=== PATIENT | female | born 1990 | race Caucasian/White ===

== ENCOUNTER 2016-08-11 05:39 | Emergency (ER) | payer OTHER, SELFPAY ==
[~2016-08-11] VITALS: Ht 165.1 cm; Wt 72.6 kg
[2016-08-11 05:48] VITALS: BP 137/72
[2016-08-11] MEDS ORDERED: CELE20TA PO (05:50)
[2016-08-11] MEDS ORDERED: LIDOCAINE W/EPINEPHRINE 1% 20ML VIAL SC ONE (06:15)
[2016-08-11] MEDS ORDERED: BACT800T5 PO (06:41)
[2016-08-11] MEDS ORDERED: NORCOTAB PO (06:43)
[2016-08-11] MEDS ORDERED: KEFL500C7 PO (06:43)
== END 2016-08-11 07:06 | disposition home or self-care (01) ==
LOC: M ED 06:54
DX: L05.01 Pilonidal cyst with abscess (principal); F33.9 Major depressive disorder, recurrent, unspecified; Z79.899 Other long term (current) drug therapy

== ENCOUNTER 2017-01-24 16:32 | Emergency (ER) | payer OTHER, SELFPAY ==
[~2017-01-24] VITALS: Ht 165.1 cm; Wt 60.9 kg
[~2017-01-24 16:32] MED LIST: BACT800T5 PO; CELE20TA PO; KEFL500C17 PO; NORCOTAB PO
--- NOTE | 2017-01-24 18:40 | REPUSA ---
Clinical history: Pain. Findings: Real-time transabdominal and transvaginal ultrasound images of the pelvis were obtained. An anteverted uterus is noted, measuring 7.4 x 3.7 x 4.1 cm. The uterus demonstrates normal echotexture and echogenicity. The endometrial stripe is within normal limits. IUD is in place. The right ovary m easures 3.4 x 1.8 x 2.3 cm. The left ovary measures 1.9 x 1.6 x 1.6 cm. No adnexal masses are seen. C olor Doppler flow is seen within both ovaries. There is no evidence of free fluid. The urinary bladde r measures 2.1 x 1.5 x 3.8 cm, and is unremarkable. Impression: Unremarkable ultrasound examination of the pelvis. IUD is within normal position.
[2017-01-24] MEDS ORDERED: MACR100C43 PO (18:51)
[2017-01-24 19:00] VITALS: BP 112/68
[2017-01-24] MEDS ORDERED: DIFL150T PO (19:12)
[2017-01-24] MEDS ORDERED: NITROFURANTOIN (MACROBID) 100 MG CAP PO ONE (19:15)
== END 2017-01-24 19:18 | disposition home or self-care (01) ==
LOC: M ED 16:32
DX: N92.1 Excessive and frequent menstruation with irregular cycle (principal); N39.0 Urinary tract infection, site not specified

== ENCOUNTER 2018-01-05 08:53 | Emergency (ER) | payer BC ==
[2018-01-05] MEDS ORDERED: ETHYL CHLORIDE TOP (10:45)
== END 2018-01-05 11:37 | disposition home or self-care (01) ==
LOC: M ED 08:53
DX: L05.91 Pilonidal cyst without abscess (principal)
CPT/HCPCS: 10060

== ENCOUNTER 2018-12-25 16:43 | Emergency (ER) | payer OTHER, SELFPAY ==
[~2018-12-25] VITALS: Ht 165.1 cm; Wt 86.9 kg
[~2018-12-25 16:43] MED LIST changes: +CITA40TA4 PO; +CLEO300C2 PO; +DIFL150T PO; +HYDR-3715 PO; +MACR100C43 PO; -NORCOTAB PO; +TRIA1OI TOP
[2018-12-25 19:20] VITALS: BP 121/62
== END 2018-12-25 19:21 | disposition home or self-care (01) ==
LOC: M ED 16:43
DX: M79.671 Pain in right foot (principal); R22.41 Localized swelling, mass and lump, right lower limb

== ENCOUNTER 2019-04-26 09:49 | Emergency (ER) | payer OTHER, SELFPAY ==
[~2019-04-26] VITALS: Ht 165.1 cm; Wt 82.0 kg
[2019-04-26 09:49] VITALS: BP 117/65
[2019-04-26] MEDS ORDERED: ERYT1OIN26 OS (10:29)
== END 2019-04-26 10:42 | disposition home or self-care (01) ==
LOC: M ED 09:49
DX: H10.9 Unspecified conjunctivitis (principal); F32.9 Major depressive disorder, single episode, unspecified; F17.200 Nicotine dependence, unspecified, uncomplicated; Z79.899 Other long term (current) drug therapy

== ENCOUNTER 2019-10-02 13:06 | Emergency (ER) | payer BC, SELFPAY ==
[~2019-10-02] VITALS: Ht 162.6 cm; Wt 76.7 kg
[2019-10-02 13:06] VITALS: BP 118/82
[~2019-10-02 13:06] MED LIST changes: +ERYT5OIN25 OS
[2019-10-02] MEDS ORDERED: AUGM875T28 PO (13:39)
[2019-10-02] MEDS ORDERED: IBUPROFEN 800 MG TAB PO ONE (13:45)
[2019-10-02] MEDS ORDERED: AUGMENTIN 875 MG TAB PO ONE (13:45)
[2019-10-02] MEDS ORDERED: ACETAMINOPHEN 500 MG TAB PO ONE (13:45)
== END 2019-10-02 13:53 | disposition home or self-care (01) ==
LOC: M ED 13:06
DX: K04.7 Periapical abscess without sinus (principal)

== ENCOUNTER → 2020-04-24 | Outpatient (CLI) | payer SELFPAY ==
[~2020-04-24] MED LIST changes: +AUGM875T28 PO
== END ==
LOC: M LABSMTC 10:28
PROVIDERS: ATTEND Pediatrics
DX: Z20.822 Contact with and (suspected) exposure to COVID-19 (principal)

== ENCOUNTER → 2020-05-15 | Outpatient (CLI) | payer SELFPAY ==
[~2020-05-15] MED LIST changes: +CEPH500C PO; +LAMI1TAB7; +METR-265 PO
== END ==
LOC: M LABSMTC 12:31
PROVIDERS: ATTEND Pediatrics
DX: Z20.822 Contact with and (suspected) exposure to COVID-19 (principal)

== ENCOUNTER 2020-05-25 16:52 | Emergency (ER) | payer BC ==
[~2020-05-25] VITALS: Ht 162.6 cm; Wt 81.1 kg
[~2020-05-25 16:52] MED LIST changes: -CEPH500C PO; -LAMI1TAB7; -METR-265 PO
--- OUTSIDE RECORDS SUMMARY | 2020-05-25 16:59 | CCD ---
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 04/20 F60.3 Borderline Personality Disorder Active 05/01/19 21 F10.19 Alcohol abuse with unspecified alcohol-induced disorde r Active 05/01/2020 Medications Rx Norm Medication Route Route Concept Start Date Stop Date Dosage Satya quency Duration Formula Strength Dosage Form Dosage Form Code Dosage Description Medication Id Account Npid Author First Name Author Last Name Taxonomy Code Taxonomy Desc Phone Number [phone] lamotrigine by mouth [id number] 03/02/2020 05/01/2020 once a day 30 100 mg tablet 89368 [id number] [phone] Nancy Hernandez [id number] Nurse Pra ctitioner [phone] [id number] sertraline by mouth [id number] 03/02/2020 05/01/2020 once a day 30 100 mg tablet 35023 [id number] [id number] Nancy Hernandez [id number] Nurse Pra ctitioner [phone] Social History Social History Element Description Concept Effective Date Smoking Status Unknown if ever smoked [id number] Immunizations No Data in Section Vital Signs No Data in Section Procedures Date Concept Id Description Targeted Site Concept Targeted Site Concept Type 05/01/2020 04933 Extended Individual Psychotherapy - 45 min CPT Patient has no history of implantable de vices Encounters Encounter Start Date End Date Encounter Type Description Diagnosis Di agnosis Desc Location Author First Name Author Last Name Npid Taxonomy Cod e Taxonomy Desc Phone Number Location Addr1 Location Addr2 Location [facility] Location Sta te Location [facility] [id number] 05/01/2020 05/01/2020 00848 Extended Individual Psych otherapy - 45 min F41.9 Anxiety Disorder, Unspecified [facility] Osman Hay [id number] [id number] Gypsum Calciner [phone] [address] [address] Plan of Treatment No Data in Section Lab Results No Data in Section Instructions No Data in Section Insurance Providers Insurance Id Policy Effective Date Policy Thru Date Company [employer]x [id number] 2019 Mague rahman Plan 1
--- OUTSIDE RECORDS SUMMARY | 2020-05-25 16:59 | CCD ---
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 04/21 F60.3 Borderline Personality Disorder Active 05/18/19 21 F10.19 Alcohol abuse with unspecified alcohol-induced disorde r Active 05/18/2020 Medications No Data in Section Social History Social History Element Description Concept Effective Date Smoking Status Unknown if ever smoked [id number] Immunizations No Data in Section Vital Signs No Data in Section Procedures Date Concept Id Description Targeted Site Concept Targeted Site Concept Type 05/16/2020 62494-27 [id number]"Psychotherapy CPT Patient has no history of implantable de vices Encounters Encounter Start Date End Date Encounter Type Description Diagnosis Di agnosis Desc Location Author First Name Author Last Name Npid Taxonomy Cod e Taxonomy Desc Phone Number Location Addr1 Location Addr2 Location [facility] Location [facility] Location Zip [id number] 05/16/2020 05/16/2020 45165-39 [id number]"Psychothera py F41.9 Anxiety Disorder, Unspecified [facility] Osman Hay [id number] [id number] Tablet Tester [id number] [address] [address] Plan of Treatment No Data in Section Lab Results No Data in Section Instructions No Data in Section Insurance Providers Insurance Id Policy Effective Date Policy Thru Date Company [employer] [id number] 2019 Mague rahman Plan 1
--- OUTSIDE RECORDS SUMMARY | 2020-05-25 16:59 | CCD ---
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 05/2020 F60.3 Borderline Personality Disorder Active 05/22/19 21 Medications No Data in Section Social History Social History Element Description Concept Effective Date Smoking Status Unknown if ever smoked [id number] Immunizations No Data in Section Vital Signs Encounter Date Height Ins Weight Lbs Bmi Bp Systolic Bp Diastoli c Oxygen Saturation Respiration Rate Pulse Rate Body Temp Head Circumference Heigh t Lying 05/22/2020 0.00 0.00 0.00 0 0 0.00 0 0 0.00 0.0 0.0 0 Procedures Date Concept Id Description Targeted Site Concept Targeted Site Concept Type 05/22/2020 39735-63 [facility] Telemed E/M Lvl 3--Est pt CPT Patient has no history of implantable de vices Encounters Encounter Start Date End Date Encounter Type Description Diagnosis Di agnosis Desc Location Author First Name Author Last Name Npid Taxonomy Cod e Taxonomy Desc Phone Number Location Addr1 Location Addr2 Location [facility] Location [facility] Location [facility] 847204 05/22/2020 05/22/2020 68226-62 [facility] Telemed E/M Lvl 3--Est p t F31.81 Bipolar II disorder [facility] Margarito Sánchez [id number] [id number] Psychiatry [phone] [address] [place], [place] 1 [facility] [address] Plan of Treatment No Data in Section Lab Results No Data in Section Instructions No Data in Section Functional Cognitive Status No Data in Section Insurance Providers Insurance Id Policy Effective Date Policy Thru Date Company [employer]x [id number] 2019 Mague rahman Plan 1
--- OUTSIDE RECORDS SUMMARY | 2020-05-25 16:59 | CCD ---
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 07/2020 F60.3 Borderline Personality Disorder Active 05/24/19 21 Medications Rx Norm Medication Route Route Concept Start Date Stop Date Dosage Satya quency Duration Formula Strength Dosage Form Dosage Form Code Dosage Description Medication Id Account Npid Author First Name Author Last Name Taxonomy Code Taxonomy Desc Phone Number [phone] Lamictal by mouth [id number] 05/22/2020 09/19/2020 once a day 30 1 00 mg tablet 88049 [id number] Gonzalo Pimentel [id number] Psychiat ry [id number] Social History Social History Element Description Concept Effective Date Smoking Status Unknown if ever smoked [id number] Immunizations No Data in Section Vital Signs No Data in Section Procedures Date Concept Id Description Targeted Site Concept Targeted Site Concept Type 05/22/2020 62365-45 [id number]"Psychotherapy CPT Patient has no history of implantable de vices Encounters Encounter Start Date End Date Encounter Type Description Diagnosis Di agnosis Desc Location Author First Name Author Last Name Npid Taxonomy Cod e Taxonomy Desc Phone Number Location Addr1 Location Addr2 Location [facility] Location [facility] Location [facility] [id number] 05/22/2020 05/22/2020 77066-34 [id number]"Psychothera py F31.81 Bipolar II disorder [facility] Osman Hay [id number] [id number] Senior Quality Technician [phone] [address] [address] Plan of Treatment No Data in Section Lab Results No Data in Section Instructions No Data in Section Insurance Providers Insurance Id Policy Effective Date Policy Thru Date Company [employer] [id number] 2019 Mague rahman Plan 1
--- OUTSIDE RECORDS SUMMARY | 2020-05-25 16:59 | CCD | Continuity of Care Document ---
Author Author Livier LYNCH [facility] Organization Unknown Address [address] [place] [address] [place] [address] Phone [phone] Problems Active Problems Provider Date Anxiety Anna Luciano D., FNP-C Onset: 11/22 Methicillin resistant staphylococcus aureus carrier Anna Duran D., PEGGY Onset: 11/22/2014 Moderate recurrent major depression Otilio Lynch RPA O nset: 07/27/2017 Repetitive self-excoriation Otilio Lynch RPA Onset: Vitamin D deficiency Otilio Lynch RPA Onset: 0 Social History Type Date Description Comments Sex Unknown Tobacco Use Start: Unknown End: Unknown Quit ETOH Use Denies alcohol use Recreational Drug Use Denies Drug Use Tobacco Use Start: Unknown Heavy tobacco smoker (more than 10 cigarettes/day) Allergies, Adverse Reactions, Alerts Description No Known Drug Allergies Medications Active Medications SIG Qnty Indications Ordering Provide r Date Mupirocin 2% Ointment top twice a day x 10 days to arms 44gm Sarath Wilder D.O., FAAFP Buspirone HCL 15mg Tablets one tab po bid [facility] Unknown Paragard Intrauterine Copper Contracepti ve T380a T380a IUD [facility] Unknown Sertraline HCL 50mg Tablets 1 by mouth every day Unknown Medications Administered in Office Medication SIG Qnty Indications Ordering Provider Date Injection (SC)/(Im) Injection Dorie Jennings FNP-BC 04/09/2016 Immunizations CPT Code Status Date Vaccine Lot # [id number] Given 05/07/2016 PPD Tuberculosis Intradermal 55971 Given 04/09/2016 Influenza Virus Vaccine, Quadrivalent, Slit Virus, Im Use 3Y & Up [id number] Vital Signs Date Vital Result Comment 02/15/2020 11:23am BP Systolic 106 mmHg BP Diastolic 68 mmHg Body Temperature 98.2 F Heart Rate 86 /min Respiratory Rate 16 /min Height 66 inches 5'6" Weight 159.00 lb [place] Body Weight 130 lb BMI (Body Mass Index) 25.7 kg/m2 O2 % BldC Oximetry 98 % 2019 11:17am BP Systolic 102 mmHg BP Diastolic 70 mmHg Body Temperature 98.4 F Heart Rate 82 /min Respiratory Rate 16 /min Height 66 inches 5'6" Weight 161.00 lb [place] Body Weight 130 lb BMI (Body Mass Index) 26.0 kg/m2 O2 % BldC Oximetry 97 % Results Test Acquired Date Facility Test Result H/L Range Note Coronavirus 2018 ([facility]) 05/15/2020 [facility] CodeEvalInterface) [phone] Coronavirus 2018 ([facility]) <SEE NOTE> 1 Coronavirus 2018 ([facility]) 04/24/2020 [facility]Eval[facility]) [phone] Coronavirus 2018 ([facility]) <SEE NOTE> 2 1 Test: COVID-19 Nasal/Naspharynx Result: NOT DETECTED Reference Units: Not detected Note: Please consider re-collection of a new specimen, if clinically indicated. Note: The COVID-19 assay is under Emergency Use Authorization(EUA) by the U.S. Food and Drug Administration. [facility] is designated as a high complexity laboratory by the Clinical Laboratory Improvement Amendments of 1988(CLIA) and is qualified to perform this test. ASSAY INFORMATION: Real Time RT-PCR 2 Test: COVID-19 Nasal/Naspharynx Result: NOT DETECTED Reference Units: Not detected Note: Please consider re-collection of a new specimen, if clinically indicated. Note: The COVID-19 assay is under Emergency Use Authorization(EUA) by the U.S. Food and Drug Administration. [facility] is designated as a high complexity laboratory by the Clinical Laboratory Improvement Amendments of 1988(CLIA) and is qualified to perform this test. ASSAY INFORMATION: Real Time RT-PCR Procedures Description No Information Available Medical Devices Description No Information Available Encounters Type Date Location Provider Dx Diagnosis Office Visit 02/15/2020 11:00a [facility] Bogdan Amos PA M25.579 Pain in unspecified ankle and joints of unspecified foot Office Visit 2019 10:40a [facility] Bogdan Amos PA L08.9 Local infection of the skin and subcutan eous tissue, unsp Assessments Date Code Description Provider 02/15/2020 M25.579 Pain in unspecified ankle and andre ints of unspecified foot Deborah Amos PA 2019 L08.9 Local infection of t he skin and subcutaneous tissue, unspecified Deborah Amos PA Plan of Treatment No Information Available Functional Status Description No Information Available Mental Status Description No Information Available Referrals Refer to Dr Reason for Referral Status Appt Date [facility]ics eval and treat right ankle p ain. History of fracture 2015 of the right ankle. Pt states she has had continued pain and decreased ROM due to the pain. Sent [address] [address] [phone]
--- OUTSIDE RECORDS SUMMARY | 2020-05-25 17:00 | CCD ---
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 03/20 F60.3 Borderline Personality Disorder Active 04/05/20 20 F10.19 Alcohol abuse with unspecified alcohol-induced disorde r Active 04/05/2020 Medications Rx Norm Medication Route Route Concept Start Date Stop Date Dosage Satya quency Duration Formula Strength Dosage Form Dosage Form Code Dosage Description Medication Id Account Npid Author First Name Author Last Name Taxonomy Code Taxonomy Desc Phone Number [phone] lamotrigine by mouth [id number] 03/02/2020 05/01/2020 once a day 30 100 mg tablet 79728 [phone] Nancy Hernandez [id number] Nurse Pra ctitioner [phone] [id number] sertraline by mouth [id number] 03/02/2020 05/01/2020 once a day 30 100 mg tablet 32835 [id number] [phone] Nancy Hernandez [id number] Nurse Pra ctitioner [phone] Social History Social History Element Description Concept Effective Date Smoking Status Unknown if ever smoked [id number] Immunizations No Data in Section Vital Signs No Data in Section Procedures Date Concept Id Description Targeted Site Concept Targeted Site Concept Type 04/04/2020 88413-47 [id number]"Psychotherapy CPT Patient has no history of implantable de vices Encounters Encounter Start Date End Date Encounter Type Description Diagnosis Di agnosis Desc Location Author First Name Author Last Name Npid Taxonomy Cod e Taxonomy Desc Phone Number Location Addr1 Location Addr2 Location [facility] Location Sta te Location [facility] 809176 04/04/2020 04/04/2020 24114-21 [id number]"Psychothera py F41.9 Anxiety Disorder, Unspecified [facility] Osman Hay [phone] [id number] Analytics Architect [phone] [address] [address] Plan of Treatment No Data in Section Lab Results No Data in Section Instructions No Data in Section Insurance Providers Insurance Id Policy Effective Date Policy Thru Date [employer]khar cox [id number] 2019 Mague rahman Plan 1
--- OUTSIDE RECORDS SUMMARY | 2020-05-25 17:00 | CCD ---
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 02/18 F60.3 Borderline Personality Disorder Active 02/29/20 20 F10.19 Alcohol abuse with unspecified alcohol-induced disorde r Active 02/29/2020 Medications Rx Norm Medication Route Route Concept Start Date Stop Date Dosage Satya quency Duration Formula Strength Dosage Form Dosage Form Code Dosage Description Medication Id Account Npid Author First Name Author Last Name Taxonomy Code Taxonomy Desc Phone Number [phone] sertraline by mouth [id number] 01/20/2020 03/05/2020 once a day 45 50 mg tablet 07437 [id number] [phone] Nancy Hernandez [id number] Nurse Pra ctitioner [phone] [id number] lamotrigine by mouth [id number] 01/20/2020 03/20/2020 twice a day 30 25 mg tablet 61559 [id number] [id number] Nancy Hernandez [id number] Nurse Pra ctitioner [phone] Social History Social History Element Description Concept Effective Date Smoking Status Unknown if ever smoked [id number] 91089645 Immunizations No Data in Section Vital Signs No Data in Section Procedures Date Concept Id Description Targeted Site Concept Targeted Site Concept Type 02/29/2020 43017-28 [id number]"Psychotherapy CPT Patient has no history of implantable de vices Encounters Encounter Start Date End Date Encounter Type Description Diagnosis Di agnosis Desc Location Author First Name Author Last Name Npid Taxonomy Cod e Taxonomy Desc Phone Number Location Addr1 Location Addr2 Location [facility] Location [facility] Location [facility] [id number] 02/29/2020 02/29/2020 55003-58 [id number]"Psychothera py F41.9 Anxiety Disorder, Unspecified [facility] Osman Hay [phone] [id number] [employer] [phone] [address] [place] [place] [address] [address] [facility] [address] Plan of Treatment No Data in Section Lab Results No Data in Section Instructions No Data in Section Insurance Providers Insurance Id Policy Effective Date Policy Thru Date Company [employer] [id number] 2019 Mague rahman Plan 1
--- OUTSIDE RECORDS SUMMARY | 2020-05-25 17:00 | CCD | Continuity of Care Document ---
Author Author Livier LYNCH [facility] Organization Unknown Address [address] [place] [address] [place] [id number] Phone [phone] Problems Active Problems Provider Date Anxiety Anna [...] HCL 15mg Tablets one tab po bid [facility] Unknown Paragard Intrauterine Copper Contracepti ve T380a T380a IUD [facility] Unknown Sertraline HCL 50mg Tablets 1 by mouth every day Unknown Medications Administered in Office Medication SIG Qnty Indications Ordering Provider Date Injection (SC)/(Im) Injection Dorie Jennings FNP-BC 04/09/2016 Immunizations CPT Code Status Date Vaccine Lot # [id number] Given 05/07/2016 PPD Tuberculosis Intradermal 18029 Given 04/09/2016 Influenza Virus Vaccine, Quadrivalent, Slit Virus, Im Use 3Y & Up [id number] Vital Signs Date Vital Result Comment 02/15/2020 11:23am BP Systolic 106 mmHg BP Diastolic 68 mmHg Body Temperature 98.2 F Heart Rate 86 /min Respiratory Rate 16 /min Height 66 inches 5'6" Weight 159.00 lb [place] Body Weight 130 lb BMI (Body Mass Index) 25.7 kg/m2 O2 % BldC Oximetry 98 % 2019 11:17am BP Systolic 102 mmHg BP Diastolic 70 mmHg Body Temperature 98.4 F Heart Rate 82 /min Respiratory Rate 16 /min Height 66 inches 5'6" Weight 161.00 lb [place] Body Weight 130 lb BMI (Body Mass Index) 26.0 kg/m2 O2 % BldC Oximetry 97 % Results Test Acquired Date Facility Test Result H/L Range Note Coronavirus 2018 ([facility]) 04/24/2020 [facility]) [phone] Coronavirus 2018 ([facility]) <SEE NOTE> 1 CBC With Differential 11/11/2019 [facility]) [phone] White Blood Count 8.8 10 Normal 4.0-10.0 Red Blood Count 3.88 10 Low 4.00-5.40 Hemoglobin 11.8 g/dL Low 12.0-15.5 Hematocrit 35.7 % Low 36.0-47.0 Mean Corpuscular Volume 92.0 fl Normal 80.0-96.0 Mean Corpuscular Hemoglobin 30.4 pg Normal 27.0-33.0 Mean Corpuscular HGB Conc 33.1 g/dL Normal 32.0-36.5 Red Cell Distribution Width 12.0 % Normal 11.5-14.5 Platelet Count, Automated 242 10 Normal 150-450 Neutrophils % 46.0 % Normal 36.0-66.0 Lymph % 45.6 % High 24.0-44.0 [place] % 5.8 % High 0.0-5.0 Eos % 1.8 % Normal 0.0-3.0 Baso % 0.5 % Normal 0.0-1.0 Immature Granulocyte % 0.3 % Normal 0-3.0 Nucleated Red Blood Cell % 0.0 % Normal 0-0 Neutrophils # 4.0 10 Normal 1.5-8.5 Lymph # 4.0 10 Normal 1.5-5.0 [place] # 0.5 10 Normal 0.0-0.8 Eos # 0.2 10 Normal 0.0-0.5 Baso # 0.0 10 Normal 0.0-0.2 Comprehensive Metabolic Profil 11/11/2019 [facility]) [phone] Glucose, Fasting 78 mg/dL Normal 70-100 Blood Urea Nitrogen 9 mg/dL Normal 7-18 Creatinine For GFR 0.80 mg/dL Normal 0.55-1.30 Glomerular Filtration Rate > 60.0 Normal >60 2 Sodium Level 141 mEq/L Normal 136-145 Potassium Serum 3.9 mEq/L Normal 3.5-5.1 Chloride Level 108 mEq/L High 98-107 Carbon Dioxide Level 30 mEq/L Normal 21-32 Anion Gap 3 mEq/L Low 8-16 Calcium Level 9.1 mg/dL Normal 8.5-10.1 Ast/Sgot 17 U/L Normal 7-37 Alt/SGPT 20 U/L Normal 12-78 Alkaline Phosphatase 55 U/L Normal 45-117 Bilirubin,Total 0.3 mg/dL Normal 0.2-1.0 Total Protein 6.7 GM/DL Normal 6.4-8.2 Albumin 3.7 GM/DL Normal 3.2-5.2 Albumin/Globulin Ratio 1.2 Normal 1.2-2.2 Lipid Panel 11/11/2019 [facility]) [phone] Triglycerides Level 160 mg/dL High <150 Cholesterol Level 168 mg/dL Normal <200 HDL Cholesterol 46 mg/dL Normal >40 LDL Cholesterol 90 mg/dL Normal <100 Non-HDL-C 122 mg/dL Normal Cholesterol Risk Ratio 3.652 Normal <5 Thyroid Profile 11/11/2019 [facility] [phone] T Uptake 31 % Normal 30-39 Thyroxine (T4) 9.4 g/dL Normal 4.5-12.0 Free Thyroxine Index 2.9 % Normal 1.3-4.8 Thyroid Stimulating Hormone 1.140 uIU/ML Normal 0.358-3.740 Laboratory test finding 11/11/2019 [facility] ([facility]) [phone] Total 25(Oh) Vitamin D 26.6 NG/ML Low 30.0-100. 0 3 Hemoglobin A1c 11/11/2019 [facility] ([facility]) [phone] Hemoglobin A1c 5.1 % Normal 4 Estimated Average Glucose 100 mg/dL Normal 60-110 1 Test: COVID-19 Nasal/Naspharynx Result: NOT DETECTED Reference Units: Not detected Note: Please consider re-collection of a new specimen, if clinically indicated. Note: The COVID-19 assay is under Emergency Use Authorization(EUA) by the U.S. Food and Drug Administration. [facility] is designated as a high complexity laboratory by the Clinical Laboratory Improvement Amendments of 1988(CLIA) and is qualified to perform this test. ASSAY INFORMATION: Real Time RT-PCR 2 Units are mL/min/1.73 m2 Chronic Kidney Disease Staging per NKF: Stage I & II GFR >=60 Normal to Mildly Decreased Stage III GFR 30-59 Moderately Decreased Stage IV GFR 15-29 Severely Decreased Stage V GFR <15 Very Little GFR Left ESRD GFR <15 on [employer] 3 [phone] [id number] REFERENCE RANGES: <=5.6% NORMAL 5.7-6.4% SUGGESTS IMPAIRED GLUCOSE META BOLISM/PREDIABETIC >= 6.5% ABNORMAL Procedures Description No Information Available Medical Devices Description No Information Available Encounters Type Date Location Provider Dx Diagnosis Office Visit 02/15/2020 11:00a [facility] Bogdan Amos PA M25.579 Pain in unspecified ankle and joints of unspecified foot Office Visit 2019 10:40a [facility] Bogdan Amos PA L08.9 Local infection of [...] Dr Reason for Referral Status Appt Date [facility] Orthopedics eval and treat right ankle p ain. History of fracture 2015 of the right ankle. Pt states she has had continued pain and decreased ROM due to the pain. Sent [address] [facility] [address] [place] [address] [phone]
--- OUTSIDE RECORDS SUMMARY | 2020-05-25 17:00 | CCD ---
Author Author [facility] Organization [facility] Address Unknown Phone Unavailable Care Team Providers Care Editor Producer Name Role Phone Gavi Amosa PA Unavailable Unavailable Barraclough, Deborah PA Unavailable Unavailable Barraclough, Deborah PA Unavailable Unavailable Barraclough, Deborah PA Unavailable Unavailable Barraclough, Deborah PA Unavailable Unavailable Barraclough, Deborah PA Unavailable Unavailable Gonzalo Pimentel Unavailable Jamshid Lynch Unavailable Unavailable Jamshid Lynch PA Unavailable Unavailable Jamshid Lynch PA Unavailable Unavailable Jamshid Lynch PA Unavailable Unavailable Jamshid Lynch PA Unavailable Unavailable Jamshid Lynch PA Unavailable Unavailable Jamshid Lynch PA Unavailable Unavailable Jamshid Lynch PA Unavailable Unavailable Jamshid Lynch PA Unavailable Unavailable Jamshid Lynch PA Unavailable Unavailable Jamshid Lynch PA Unavailable Unavailable Jamshid Lynch PA Unavailable Unavailable Jamshid Lynch PA Unavailable Unavailable Cris, D Otilio PA Unavailable Unavailable Cris, D Otilio PA Unavailable Unavailable Cris, D Otilio PA Unavailable Unavailable Cris, D Otilio PA Unavailable Unavailable Cris, D Otilio PA Unavailable Unavailable Cris, D Otilio PA Unavailable Unavailable Cris, D Otilio PA Unavailable Unavailable Cris, D Otilio PA Unavailable Unavailable Cris, D Otilio PA Unavailable Unavailable Cris, D Otilio PA Unavailable Unavailable Cris, D Otilio PA Unavailable Unavailable Cris, D Otilio PA Unavailable Unavailable Cris, D Otilio PA Unavailable Unavailable Cris, D Otilio PA Unavailable Unavailable Cris, D Otilio PA Unavailable Unavailable Cris, D Otilio PA Unavailable Unavailable Cris, D Otilio PA Unavailable Unavailable Cris, D Otilio PA Unavailable Unavailable Cris, D Otilio PA Unavailable Unavailable Cris, D Otilio PA Unavailable Unavailable Cris, D Otilio PA Unavailable Unavailable Cris, D Otilio PA Unavailable Unavailable Cris, D Otilio PA Unavailable Unavailable Cris, D Otilio PA Unavailable Unavailable Cris, D Otilio PA Unavailable Unavailable Cris, D Otilio PA Unavailable Unavailable Cris, D Otilio PA Unavailable Unavailable Cris, D Otilio PA Unavailable Unavailable Cris, D Otilio PA Unavailable Unavailable Cris, D Otilio PA Unavailable Unavailable Cris, D Otilio PA Unavailable Unavailable Cris, D Otilio PA Unavailable Unavailable Cris, D Otilio PA Unavailable Unavailable Cris, D Otilio PA Unavailable Unavailable Cris, D Otilio PA Unavailable Unavailable Cris, D Otilio PA Unavailable Unavailable Cris, D Otilio PA Unavailable Unavailable Cris, D Otilio PA Unavailable Unavailable Cris, D Otilio PA Unavailable Unavailable Cris, D Otilio PA Unavailable Unavailable Cris, D Otilio PA Unavailable Unavailable Cris, D Otilio PA Unavailable Unavailable Cris, D Otilio PA Unavailable Unavailable Cris, D Otilio PA Unavailable Unavailable Cris, D Otilio PA Unavailable Unavailable Cris, D Otilio PA Unavailable Unavailable Cris, D Otilio PA Unavailable Unavailable Cris, D Otilio PA Unavailable Unavailable Cris, D Otilio PA Unavailable Unavailable Cris, D Otilio PA Unavailable Unavailable Bharti Brewer Unavailable Adam Larisa Unavailable EGORHO F NANCY FPMHNP Unavailable Unavailable EGORHO F NANCY FPMHNP Unavailable Unavailable EGORHO, F NANCY FPMHNP Unavailable Unavailable EGORHO, F NANCY FPMHNP Unavailable Unavailable EGORHO, F NANCY FPMHNP Unavailable Unavailable EGORHO, F NANCY FPMHNP Unavailable Unavailable Re-disclosure Warning The records that you are about to access may contain information from federally-assisted alcohol or drug abuse programs. If such information is present, then the following federally mandated warning applies: This information has been disclosed to you from records protected by federal confidentiality rules (42 CFR part 2). The federal rules prohibit you from making any further disclosure of this information unless further disclosure is expressly permitted by the written consent of the person to whom it pertains or as otherwise permitted by 42 CFR part 2. A general authorization for the release of medical or other information is NOT sufficient for this purpose. The Federal rules restrict any use of the information to criminally investigate or prosecute any alcohol or drug abuse patient.The records that you are about to access may contain highly sensitive health information, the redisclosure of which is protected by Article 27-F of the [facility] Public Health law. If you continue you may have access to information: Regarding HIV / AIDS; Provided by facilities licensed or operated by the [facility] Office of Mental Health; or Provided by the [facility] Office for People With Developmental Disabilities. If such information is present, then the following [facility] mandated warning applies: This information has been disclosed to you from confidential records which are protected by state law. State law prohibits you from making any further disclosure of this information without the specific written consent of the person to whom it pertains, or as otherwise permitted by law. Any unauthorized further disclosure in violation of state law may result in a fine or fci sentence or both. A general authorization for the release of medical or other information is NOT sufficient authorization for further disc losure. Family History Family Member Name Family Member Gender Family Member Status Date o f Status Description Data Source(s) Unknown Male Problem [facility] ([facility]) Unknown Unknown Problem [facility] ([facility] Encounters Encounter Providers Location Date Indications Data Source(s ) Attender: Bharti Brewer 05/24/2020 12:00:00 AM [facility] 08:00:00 AM EST - 05/22/2020 08:00:00 AM EST [facility] ([facility] [id number]"Psychotherapy Attender: Bharti Brewer [facility] 05/22/2020 03:00:00 AM EST - 05/22/2020 03:00:00 AM EST [facility] ([facility]) Attender: Gonzalo Pimentel 05/22/2020 12:00:00 AM EST [facility] ([facility]) Attender: Bahrti Brewer 05/18/2020 12:00:00 AM EST [facility] ([facility]) [id number]"Psychotherapy Attender: Bharti Brewer [facility] 05/16/2020 03:00:00 AM EST - 05/16/2020 03:00:00 AM EST [facility] ([facility]) Extended Individual Psychotherapy - 45 min Attender: Bharti Brewer [facility] 05/01/2020 01:00:00 AM EST - 05/01/2020 01:00:00 AM EST [facility] ([facility]) Attender: Bharti Brewer 05/01/2020 12:00:00 AM EST [facility] ([facility]) Attender: Bharti Brewer 04/18/2020 12:00:00 AM EST [facility] ([facility]) [id number]"Psychotherapy Attender: Bharti Brewer [facility] 04/17/2020 01:00:00 AM EST - 04/17/2020 01:00:00 AM EST [facility] ([facility]) [id number]"Psychotherapy Attender: Bharti Brewer [facility] 04/04/2020 05:00:00 AM EST - 04/04/2020 05:00:00 AM EST [facility] ([facility]) Attender: Bharti Brewer 04/04/2020 12:00:00 AM EST [facility] ([facility]) Outpatient Attender: NANCY BOOFRANCIE [facility] 03/02/2020 02:00:00 AM EST - 03/02/2020 02:00:00 AM EST [facility] ([facility]) Attender: NANCY SEGOVIA 03/02/2020 12:00: 00 AM EST [facility] ([facility]) [id number]"Psychotherapy Attender: Bharti Brewer [facility] 02/29/2020 05:00:00 AM EST - 02/29/2020 05:00:00 AM EST [facility] ([facility]) Attender: Bharti Brewer 02/29/2020 12:00:00 AM EST [facility] ([facility]) Attender: Bharti Brewer 02/16/2020 12:00:00 AM EDT [facility] ([facility]) Outpatient Attender: Deborah garzon 02/15/2020 11:00:00 AM EDT [facility] ([facility] Extended Individual Psychotherapy - 45 min Attender: Bharti Brewer [facility] 02/15/2020 05:00:00 AM EDT - 02/15/2020 05:00:00 AM EDT [facility] ([facility]) Attender: Bharti Brewer 02/02/2020 12:00:00 AM EDT [facility] ([facility]) Extended Individual Psychotherapy - 45 min Attender: Bharti Brewer [facility] 02/01/2020 05:00:00 AM EDT - 02/01/2020 05:00:00 AM EDT [facility] ([facility]) Outpatient Attender: NANCY BOOFRANCIE [facility] Yonis ail 01/20/2020 02:00:00 AM EDT - 01/20/2020 02:00:00 AM EDT [facility] ([facility]) Attender: NANCY SEGOVIA 01/20/2020 12:00: 00 AM EDT [facility] ([facility]) Attender: Bharti Brewer 01/20/2020 12:00:00 AM EDT [facility] ([facility]) Extended Individual Psychotherapy - 45 min Attender: Bharti Brewer [facility] 01/18/2020 05:00:00 AM EDT - 01/18/2020 05:00:00 AM EDT [facility] ([facility]) Extended Individual Psychotherapy - 45 min Attender: Bharti Osman [facility] 12/21/2019 05:00:00 AM EDT - 12/21/2019 05:00:00 AM EDT [facility] ([facility]) Attender: Bharti Brewer 12/21/2019 12:00:00 AM EDT [facility] ([facility]) Outpatient Attender: Deborah garzon 2019 10:40:00 AM EDT [facility] ([facility] TEMPMHCTelemed 30" Psychotherapy Attender: Bharti Brewer [facility] 10/12/2019 12:30:00 PM EDT - 10/12/2019 12:30:00 PM EDT [facility] ([facility]) Attender: Bharti Brewer 10/12/2019 12:00:00 AM EDT [facility] ([facility]) [id number]"Psychotherapy Attender: Bharti Brewer [facility] 09/29/2019 09:45:00 AM EDT - 09/29/2019 09:45:00 AM EDT [facility] ([facility]) Attender: Bharti Brewer 09/29/2019 12:00:00 AM EDT [facility] ([facility]) [id number]"Psychotherapy Attender: Bharti Osman [facility] 09/23/2019 11:15:00 AM EDT - 09/23/2019 11:15:00 AM EDT [facility] ([facility]) Attender: Bharti Brewer 09/23/2019 12:00:00 AM EDT [facility] ([facility]) [id number]"Psychotherapy Attender: Bharti Brewer [facility] 09/15/2019 09:00:00 AM EDT - 09/15/2019 09:00:00 AM EDT [facility] ([facility]) Attender: Bharti Brewer 09/15/2019 12:00:00 AM EDT [facility] ([facility]) [id number]"Psychotherapy Attender: Bharti Brewer [facility] 08/30/2019 10:00:00 AM EDT - 08/30/2019 10:00:00 AM EDT [facility] ([facility]) Attender: Bhrati Brewer 08/30/2019 12:00:00 AM EDT [facility] ([facility]) Outpatient Attender: Deborah GREER [facility] 08/23/2019 09:30:00 AM EDT [facility] ([facility] Psychiatric Diagnostic Evaluation (Non-Medical) Attender: Holden Brewer [facility] 08/15/2019 09:00:00 AM EDT - 08/15/2019 09:00:00 AM EDT [facility] ([facility]) Attender: Bharti Brewer 08/15/2019 12:00:00 AM EDT [facility] ([facility]) Outpatient Attender: Otilio GREER [facility] 10:20:00 AM EDT [facility] ([facility] [id number]"Psychotherapy Attender: [facility] 07/25/2019 08:00:00 AM EDT - 07/25/2019 08:00:00 AM EDT [facility] ([facility]) Attender: Larisa Adam 07/25/2019 12:00:00 AM EDT [facility] ([facility]) Functional Status Medications Medication Brand Name Start Date Product Form Dose Route Admi nistrative Instructions Pharmacy Instructions Status Indications Reaction Description Data Source(s) lamotrigine 100 MG Oral Tablet [Lamictal] Lamictal 05/22/2020 1 2:00:00 AM EST 100 mg by mouth completed [id number] Lamictal by mouth [id number] 05/22/2020 09/19/2020 once a day 30 100 mg tablet 10879 708710 [id number] Ra hellerhugh Lewisarez [id number] Psychiatry [facility] ([facility]) Sertraline 100 MG Oral Tablet sertraline 03/02/2020 12:00:00 AM EST 100 mg by mouth completed [id number] sertraline by mouth B48915 201905/01/2020 once a day 30 100 mg tablet 46929 [id number] Nancy velasquez [id number] Nurse Practitioner [facility] ([facility]) lamotrigine 100 MG Oral Tablet lamotrigine 03/02/2020 12:00:00 AM EST 100 mg by mouth completed [id number] lamotrigine by mouth [id number] 05/01/2020 once a day 30 100 mg tablet 24278 351712 [id number] brianda Hernandez [id number] Nurse Practitioner [facility] ([facility]) lamotrigine 100 MG Oral Tablet lamotrigine 03/02/2020 12:00:00 AM EST 100 mg by mouth completed [id number] lamotrigine by mouth [id number] 05/01/2020 once a day 30 100 mg tablet 69680 183412 [id number] brianda Hernandez [id number] Nurse Practitioner [facility] ([facility]) 100 mg 03/02/2020 12:00:00 AM EST tablet 30 TAKE ONE TABLET BY MOUTH EVERY DAY TAKE ONE TABLET BY MOUTH EVERY DAY SOLD: 03/02/2020 [facility] 100 mg 03/02/2020 12:00:00 AM EST tablet 30 TAKE ONE TABLET BY MOUTH EVERY DAY TAKE ONE TABLET BY MOUTH EVERY DAY SOLD: 04/10/2020 [facility] Sertraline 100 MG Oral Tablet sertraline 03/02/2020 12:00:00 AM EST 100 mg by mouth completed 534606 sertraline by mouth N50133 201905/01/2020 once a day 30 100 mg tablet 65808 [id number] Nancy velasquez [id number] Nurse Practitioner [facility] ([facility]) 100 mg 03/02/2020 12:00:00 AM EST tablet 30 TAKE ONE TABLET BY MOUTH EVERY DAY TAKE ONE TABLET BY MOUTH EVERY DAY SOLD: 04/10/2020 [facility] 100 mg 03/02/2020 12:00:00 AM EST tablet 30 TAKE ONE TABLET BY MOUTH EVERY DAY TAKE ONE TABLET BY MOUTH EVERY DAY SOLD: 03/02/2020 [facility] 25 mg 01/21/2020 12:00:00 AM EDT tablet 120 TAKE TWO TABLETS BY MOUTH TWICE A DAY TAKE TWO TABLETS BY MOUTH TWICE A DAY SOLD: 01/22/2020 [facility] 50 mg 01/21/2020 12:00:00 AM EDT tablet 45 TAKE ONE TABLET BY MOUTH EVERY DAY TAKE ONE TABLET BY MOUTH EVERY DAY SOLD: 01/22/2020 [facility] Sertraline 50 MG Oral Tablet sertraline 01/20/2020 12:00:00 AM EDT 50 mg by mouth completed [id number] sertraline by mouth [id number] 201903/02/2020 once a day 45 50 mg tablet 00200 [id number] Nancy Hernandez [id number] Nurse Practitioner [facility] ([facility]) lamotrigine 25 MG Oral Tablet lamotrigine 01/20/2020 12:00:00 AM EDT 25 mg by mouth completed [id number] lamotrigine by mouth S46951 01/1903/02/2020 twice a day 30 25 mg tablet 24756 197918 [id number] brianda Hernandez [id number] Nurse Practitioner [facility] ([facility]) 25 mg 01/03/2020 12:00:00 AM EDT tablet 60 TAKE TWO TABLETS BY MOUTH EVERY DAY TAKE TWO TABLETS BY MOUTH EVERY DAY SOLD: 01/04/2020 [facility] lamotrigine 25 MG Oral Tablet lamotrigine 01/03/2020 12:00:00 AM EDT 25 mg completed [id number] lamotrigine 01/03/2020 25 m g tablet 38420 815172 [id number] Nancy Hernandez [id number] Nurse Practitioner [facility] ([facility]) Cyclobenzaprine hydrochloride 10 MG Oral Tablet CYCLOBENZAPR INE HCL 12/19/2019 12:00:00 AM EDT tablet 14 TAKE ONE TABLET BY MOUTH AT BEDTIME NEEDED FOR 14 DAYS TAKE ONE TABLET BY MOUTH AT BEDTIME NEEDED FOR 14 D AYS SOLD: 12/19/2019 [facility] buspirone hydrochloride 10 MG Oral Tablet BUSPIRONE HCL 12/17/2019 12:00:00 AM EDT tablet 120 TAKE TWO TABLETS BY MOUTH TW ICE A DAY TAKE TWO TABLETS BY MOUTH TWICE A DAY SOLD: 12/19/2019 [facility] buspirone hydrochloride 10 MG Oral Tablet buspirone 2019 12:00:00 AM EDT 10 mg by mouth completed [id number] buspirone by mouth C382 88 12/16/2019 01/15/2020 twice a day 30 10 mg tablet 98525 [id number] ika Egorho [id number] Nurse Practitioner [facility] ([facility] [place] [facility] Mupirocin 0.02 MG/MG Topical Ointment Mupirocin 2019 12:00:00 AM EDT active [facility] ([facility] 2 % 2019 12:00:00 AM EDT ointment 44 APPLY TO ARMS TWO TIMES A DAY FOR 10 DAYS APPLY TO ARMS TWO TIMES A DAY FOR 10 DAYS SOLD: 12/16/2019 [facility] 25 mg 11/29/2019 12:00:00 AM EDT tablet 60 TAKE TWO TABLETS BY MOUTH EVERY DAY TAKE TWO TABLETS BY MOUTH EVERY DAY SOLD: 11/30/2019 [facility] buspirone hydrochloride 15 MG Oral Tablet BUSPIRONE HCL 11/16/2019 12:00:00 AM EDT tablet 60 TAKE ONE TABLET BY MOUTH TWI CE A DAY TAKE ONE TABLET BY MOUTH TWICE A DAY SOLD: 11/16/2019 [facility] Clonidine Hydrochloride 0.1 MG Oral Tablet CLONIDINE HCL 11/16/2019 12:00:00 AM EDT tablet 30 TAKE ONE TABLET BY MOUTH EVERY DAY NEEDED FOR ANXIOUS/DISTRESSED/UNCONTROLLED EPISODE TAKE ONE TABLET BY MOUTH EVERY DAY NEEDED FOR ANXIOUS/DISTRESSED/UNCONTROLLED EPISODE SOLD: 11/16/2019 [facility] 25 mg 11/16/2019 12:00:00 AM EDT tablet 14 TAKE ONE TABLET BY MOUTH EVERY DAY TAKE ONE TABLET BY MOUTH EVERY DAY SOLD: 11/16/2019 [facility] 875-125 mg 10/02/2019 12:00:00 AM EDT tablet 14 TAKE ONE TABLET BY MOUTH TWICE A DAY TAKE ONE TABLET BY MOUTH TWICE A DAY SOLD: 10/02/2019 [facility] Fluconazole 150 MG Oral Tablet Fluconazole 08/23/2019 12:00:00 AM EDT completed [facility] ([facility] Metronidazole 500 MG Oral Tablet Metronidazole 08/23/2019 12:00:00 AM EDT completed [facility] ([facility] 150 mg 08/23/2019 12:00:00 AM EDT tablet 2 TAKE ONE TABLET BY MOUTH NOW AND ONE TABLET BY MOUTH IN 7 DAYS TAKE ONE TABLET BY MOUTH NOW AND ONE TAB LET BY MOUTH IN 7 DAYS SOLD: 08/24/2019 [facility] 500 mg 08/23/2019 12:00:00 AM EDT tablet 14 TAKE ONE TABLET BY MOUTH TWICE A DAY FOR 7 DAYS NO ALCOHOL TAKE ONE TABLET BY MOUTH TWICE A DAY FOR 7 DAYS NO ALCOHOL SOLD: 08/24/2019 [facility] ammonium lactate 120 MG/ML Topical Lotion [Lac-Hydrin] Lac-H ydrin Twelve 08/11/2019 12:00:00 AM EDT completed [facility] ([facility] 5 mg/gram (0.5 %) 04/26/2019 12:00:00 AM EST ointment 3 APPLY 1CM RIBBON INTO LOWER LEFT EYELID EVERY 4 HOURS FOR 1 DAY THEN FOUR TIMES A DAY FOR 6 DAYS APPLY 1CM RIBBON INTO LOWER LEFT EYELID EVERY 4 HOURS FOR 1 DAY THEN FOUR TIMES A DAY FOR 6 DAYS SOLD: 04/28/2019 [facility] Insurance Providers Payer name Policy type / Coverage type Policy ID Covered republican ID Covered republican's relationship to valdez Policy Valdez Plan Information [facility] [id number] SP [id number] SELF PAY ONLY [id number] SP [id number] SELF PAY ONLY [id number] SP [id number] MEDICAID [id number] SP [id number] [facility] COMMUNITY PLAN [facility] [id number] SP [id number] MEDICAID P [id number] [facility](MCAID) P [id number] S [id number] [facility]/P [id number] 18 [id number] [facility] COMMUNITY PLAN [facility] [id number] SP [id number] [facility](MCAID) O [id number] S [id number] [employer] [place] [employer] Self [facility] COMMUNITY PLAN [facility] [id number] SP [id number] [facility](MCAID) O [id number] S [id number] SELF PAY ONLY [id number] SP [id number] [employer] BCBS B [id number] S [id number] [employer] [place] PPO 302/307 [id number] SP [id number] [employer] Health Maintenance Organization (HMO) [id number] Self [id number] [employer]BS [place] PPO 302/307 [id number] SP [id number] [employer] Health Maintenance Organization (HMO) [id number] Self [id number] Medicaid [place] Medicaid [id number] Self [id number] [facility] COMMUNITY PLAN [facility] [id number] SP [id number] [facility] [id number] SP [id number] [facility] PLAN [facility] [id number] SP [id number] [facility] [id number] SP [id number] Problems, Conditions, and Diagnoses Code Display Name Description Problem Type Effective Dates Data Source(s) F60.3 Borderline personality disorder Borderline Personality Disorder Condition 05/24/2020 12:00:00 AM EST [facility] ([facility]) F42.4 Excoriation (skin-picking) disorder Excoriation (Skin-Picking) Disorder Condition 05/24/2020 12:00:00 AM EST [facility] ([facility]) F43.10 Post-traumatic stress disorder, unspecif ied Posttraumatic Stress Disorder (includes Posttraumatic Stress Disorder for Children 6 Years and Younger) Condition 05/24/2020 12:00:00 AM EST [facility] ([facility]) F41.9 Anxiety disorder, unspecified Unspecified Anxiety Diso rder Condition 05/24/2020 12:00:00 AM EST [facility] ([facility]) F31.81 Bipolar II disorder Bipolar II Disorder Condition 0 05/24/2020 12:00:00 AM EST [facility] ([facility]) F10.19 Alcohol abuse with unspecified alcohol-i nduced disorder Alcohol abuse with unspecified alcohol-induced disorder Condition 05/18/2020 12:00:0 0 AM EST [facility] ([facility]) F31.81 Bipolar II disorder Bipolar II Disorder Condition 0 05/18/2020 12:00:00 AM EST [facility] ([facility]) F43.10 Post-traumatic stress disorder, unspecif ied Posttraumatic Stress Disorder (includes Posttraumatic Stress Disorder for Children 6 Years and Younger) Condition 05/18/2020 12:00:00 AM EST [facility] ([facility]) F41.9 Anxiety disorder, unspecified Unspecified Anxiety Diso rder Condition 05/18/2020 12:00:00 AM EST [facility] ([facility]) [id number] Vitamin D deficiency Vitamin D deficiency Problem 11/14/2019 12:00:00 AM EDT [facility] ([facility] Surgeries/Procedures Procedure Description Date Indications Data Source(s) [id number]"Psychotherapy 12:00:00 AM EST - 05/24/2020 12:00:00 AM EST [facility] ([facility]) [id number]"Psychotherapy 05/22/2020 12:00:00 AM EST [facility] ([facility]) MHC Telemed E/M Lvl 3--Est pt 05/22/2020 12:00:00 AM EST - 05/22/2020 12:00:00 AM EST [facility] ([facility]) MHC Telemed E/M Lvl 3--Est pt 05/22/2020 12:00:[address] [facility] ([facility]) [id number]"Psychotherapy 12:00:00 AM EST - 05/18/2020 12:00:00 AM EST [facility] ([facility]) [id number]"Psychotherapy 05/16/2020 12:00:00 AM EST [facility] ([facility]) Extended Individual Psychotherapy - 45 min 05/01/2020 12:00:00 AM EST - 05/01/2020 12:00:00 AM EST [facility] ([facility]) Extended Individual Psychotherapy - 45 min 1 12:00:00 AM EST [facility] ([facility]) [id number]"Psychotherapy 0 12:00:00 AM EST - 04/18/2020 12:00:00 AM EST [facility] ([facility]) [id number]"Psychotherapy 04/17/2020 12:00:00 AM EST [facility] ([facility]) [id number]"Psychotherapy 0 12:00:00 AM EST - 04/04/2020 12:00:00 AM EST [facility] ([facility]) [id number]"Psychotherapy 04/04/2020 12:00:00 AM EST [facility] ([facility] [facility] MHC Telemed E/M Lvl 3--Est pt 03/02/2020 12:00:00 AM EST - 03/02/2020 12:00:00 AM EST [facility] ([facility]) MHC Telemed E/M Lvl 3--Est pt 03/02/2020 12:00:[address] [facility] ([facility]) [id number]"Psychotherapy 0 12:00:00 AM EST - 02/29/2020 12:00:00 AM EST [facility] ([facility]) [id number]"Psychotherapy 02/29/2020 12:00:00 AM EST [facility] ([facility]) Extended Individual Psychotherapy - 45 min 02/16/2020 12:00:00 AM EDT - 02/16/2020 12:00:00 AM EDT [facility] ([facility]) Extended Individual Psychotherapy - 45 min 0 12:00:00 AM EDT [facility] ([facility]) Extended Individual Psychotherapy - 45 min 02/02/2020 12:00:00 AM EDT - 02/02/2020 12:00:00 AM EDT [facility] ([facility]) Extended Individual Psychotherapy - 45 min 0 12:00:00 AM EDT [facility] ([facility]) OFFICE OUTPATIENT VISIT 15 MINUTES 01/19 12:00:00 AM EDT - 01/20/2020 12:00:00 AM EDT [facility] ([facility]) OFFICE OUTPATIENT VISIT 15 MINUTES 01/20/2020 12:00:00 AM EDT [facility] ([facility]) Extended Individual Psychotherapy - 45 min 01/20/2020 12:00:00 AM EDT - 01/20/2020 12:00:00 AM EDT [facility] ([facility]) Extended Individual Psychotherapy - 45 min 0 12:00:00 AM EDT [facility] ([facility]) Extended Individual Psychotherapy - 45 min 12/21/2019 12:00:00 AM EDT - 12/21/2019 12:00:00 AM EDT [facility] ([facility]) Extended Individual Psychotherapy - 45 min 0 12:00:00 AM EDT [facility] ([facility]) TEMPMHCTelemed 30" Psychotherapy 020 12:00:00 AM EDT - 10/12/2019 12:00:00 AM EDT [facility] ([facility]) TEMPMHCTelemed 30" Psychotherapy 10/12/2019 12:00:00 A M EDT [facility] ([facility]) [id number]"Psychotherapy 0 12:00:00 AM EDT - 09/29/2019 12:00:00 AM EDT [facility] ([facility]) [id number]"Psychotherapy 09/29/2019 12:00:00 AM EDT [facility] ([facility]) [id number]"Psychotherapy 0 12:00:00 AM EDT - 09/23/2019 12:00:00 AM EDT [facility] ([facility]) [id number]"Psychotherapy 09/23/2019 12:00:00 AM EDT [facility] ([facility]) [id number]"Psychotherapy 0 12:00:00 AM EDT - 09/15/2019 12:00:00 AM EDT [facility] ([facility]) [id number]"Psychotherapy 09/15/2019 12:00:00 AM EDT [facility] ([facility]) [id number]"Psychotherapy 0 12:00:00 AM EDT - 08/30/2019 12:00:00 AM EDT [facility] ([facility]) [id number]"Psychotherapy 08/30/2019 12:00:00 AM EDT [facility] ([facility]) Psychiatric Diagnostic Evaluation (Non-Medical) 08/15/2019 12:00:00 AM EDT - 08/15/2019 12:00:00 AM EDT [facility] ([facility]) Psychiatric Diagnostic Evaluation (Non-Medical) 2019 12:00:00 AM EDT [facility] ([facility]) [id number]"Psychotherapy 0 12:00:00 AM EDT - 07/25/2019 12:00:00 AM EDT [facility] ([facility]) [id number]"Psychotherapy 07/25/2019 12:00:00 AM EDT [facility] ([facility]) Results ID Date Data Source [id number] 05/15/2020 12:20:00 PM EST [facility] ([facility] Name Value Range Interpretation Code Description Data Tati rce(s) Supporting Document(s) Laboratory test finding (navigational concept) Laboratory test result [facility] ([facility] Test: COVID-19 Nasal/Naspharynx Result: NOT DETECTED Reference Units: Not detected Note: Please consider re-collection of a new specimen, if clinically indicated. Note: The COVID-19 assay is under Emergency Use Authorization(EUA) by the U.S. Food and Drug Administration. [facility] is designated as a high complexity laboratory by the Clinical Laboratory Improvement Amendments of 1988(CLIA) and is qualified to perform this test. ASSAY INFORMATION: Real Time RT-PCR ID Date Data Source [id number] 05/15/2020 12:00:00 AM EST [facility] Name Value Range Interpretation Code Description Data Tati rce(s) Supporting Document(s) SARS-CoV-2 (COVID-19) RNA [Presence] in Respiratory specimen by EARL with probe detection Not Detected [facility] This lab was ordered by [facility] and reported by [email or web address]. ID Date Data Source [id number] 04/24/2020 10:20:00 AM EST [facility] ([facility] Name Value Range Interpretation Code Description Data Tati rce(s) Supporting Document(s) Laboratory test finding (navigational concept) Laboratory test result [facility] ([facility] Test: COVID-19 Nasal/Naspharynx Result: NOT DETECTED Reference Units: Not detected Note: Please consider re-collection of a new specimen, if clinically indicated. Note: The COVID-19 assay is under Emergency Use Authorization(EUA) by the U.S. Food and Drug Administration. [facility] is designated as a high complexity laboratory by the Clinical Laboratory Improvement Amendments of 1988(CLIA) and is qualified to perform this test. ASSAY INFORMATION: Real Time RT-PCR ID Date Data Source [id number] 04/24/2020 12:00:00 AM EST [facility] Name Value Range Interpretation Code Description Data Tati rce(s) Supporting Document(s) SARS-CoV-2 (COVID-19) RNA [Presence] in Respiratory specimen by EARL with probe detection Not Detected [facility] This lab was ordered by [facility] and reported by [employer] ID Date Data Source [id number] 11/11/2019 03:34:00 PM EDT [facility] ([facility] Name Value Range Interpretation Code Description Data Tati rce(s) Supporting Document(s) Hemoglobin A1c 5.1 % Normal (applies to non-numeric r esults) [facility] ([facility] <content>REFERENCE RANGES:</content><br/ ><content></content>
<content><=5.6% NORMAL</content>
<content>5.7-6.4% SUGGESTS IMPAIRED GLUCOSE METABOLISM/PREDIABETIC</content>
<content>>= 6.5% ABNORMAL</content>
<content></content> Estimated Average Glucose 100 mg/dL 60-110 Normal (applies to non-numeric results) [facility] ([facility] ) ID Date Data Source [id number] 11/11/2019 03:34:00 PM EDT [facility] ([facility] Name Value Range Interpretation Code Description Data Tati rce(s) Supporting Document(s) Calcidiol [Mass/volume] in Serum or Plasma 26.6 ng/mL 30.0- 100.0 Below low normal [facility] ([facility] ) [id number] ID Date Data Source [id number] 11/11/2019 03:34:00 PM EDT [facility] Name Value Range Interpretation Code Description Data Tati rce(s) Supporting Document(s) Thyroxine (T4) 9.4 ug/dL 4.5-12.0 Normal (applies to non-numeric r esults) [facility] ([facility] T Uptake 31 % 30-39 Normal (applies to non-numeric resul ts) [facility] ([facility] Free Thyroxine Index 2.9 % 1.3-4.8 Normal (applies to non-num trav results) [facility] ([facility] Thyroid Stimulating Hormone 1.140 uIU/ML 0.358-3.740 Norm al (applies to non- numeric results) [facility] ([facility] ) ID Date Data Source [id number] 11/11/2019 03:34:00 PM EDT [facility] ([facility] Name Value Range Interpretation Code Description Data Tati rce(s) Supporting Document(s) HDL Cholesterol 46 mg/dL Normal (applies to non-numeric results) [facility] ([facility] Cholesterol Level 168 mg/dL Normal (applies to non-numeri c results) [facility] ([facility] Triglycerides Level 160 mg/dL Above high normal [facility] ([facility] Non-HDL-C 122 mg/dL Normal (applies to non-numeric resul ts) [facility] ([facility] Cholesterol Risk Ratio 3.652 Normal (applies to non-n umeric results) [facility] ([facility] LDL Cholesterol 90 mg/dL Normal (applies to non-numeric results) [facility] ([facility] ID Date Data Source [id number] 11/11/2019 03:34:00 PM EDT [facility] ([facility] Name Value Range Interpretation Code Description Data Tati rce(s) Supporting Document(s) Glucose, Fasting 78 mg/dL 70-100 Normal (applies to non-numeric results) [facility] ([facility] Blood Urea Nitrogen 9 mg/dL 7-18 Normal (applies to non-nume dino results) [facility] ([facility] Glomerular Filtration Rate Laboratory test result Normal (applies to non- numeric results) [facility] ([facility] ) <content>Units are mL/min/1.73 m2</content>
<content></content>
<content>Chronic Kidney Disease Staging per NKF:</content>
<content></content>
<content>Stage I & II GFR >=60 Normal to Mildly Decreased</content>
<content>Stage III GFR 30- 59 Moderately Decreased</content>
<content>Stage IV GFR 15-29 Severely Decreased</content>
<content>Stage V GFR <15 Very Little GFR Left</content>
<content>ESRD GFR <15 on OFFICE MACHINES SALES REPRESENTATIVE</content>
<content></content> Sodium Level 141 meq/L 136-145 Normal (applies to non-numeric res ults) [facility] ([facility] Creatinine For GFR 0.80 mg/dL 0.55-1.30 Normal (applies to non -numeric results) [facility] ([facility] Carbon Dioxide Level 30 meq/L 21-32 Normal (applies to non-num trav results) [facility] Potassium Serum 3.9 meq/L 3.5-5.1 Normal (applies to non-numeric results) [facility] ([facility] Chloride Level 108 meq/L 98-107 Above high normal [facility] ([facility] Calcium Level 9.1 mg/dL 8.5-10.1 Normal (applies to non-numeric re sults) [facility] ([facility] Ast/Sgot 17 U/L 7-37 Normal (applies to non-numeric resul ts) [facility] ([facility] Alt/SGPT 20 U/L 12-78 Normal (applies to non-numeric resul ts) [facility] ([facility] Anion Gap 3 meq/L 8-16 Below low normal [facility] ( [facility] Total Protein 6.7 GM/DL 6.4-8.2 Normal (applies to non-numeric re sults) [facility] ([facility] Alkaline Phosphatase 55 U/L 45-117 Normal (applies to non-num trav results) [facility] ([facility] Bilirubin,Total 0.3 mg/dL 0.2-1.0 Normal (applies to non-numeric results) [facility] ([facility] Albumin/Globulin Ratio 1.2 1.2-2.2 Normal (applies to non-n umeric results) [facility] ([facility] Albumin 3.7 GM/DL 3.2-5.2 Normal (applies to non-numeric resul ts) [facility] ([facility] ID Date Data Source [id number] 11/11/2019 03:34:00 PM EDT [facility] ([facility] Name Value Range Interpretation Code Description Data Tati rce(s) Supporting Document(s) Red Blood Count 3.88 10 4.00-5.40 Below low normal [facility] ([facility] White Blood Count 8.8 10 4.0-10.0 Normal (applies to non-numeri c results) [facility] ([facility] Hematocrit 35.7 % 36.0-47.0 Below low normal [facility] ( [facility] Hemoglobin 11.8 g/dL 12.0-15.5 Below low normal [facility] ( [facility] Mean Corpuscular Volume 92.0 fl 80.0-96.0 Normal ( applies to non-numeric results) [facility] ([facility] ) Red Cell Distribution Width 12.0 % 11.5-14.5 Norm al (applies to non-numeric results) [facility] ([facility] ) Mean Corpuscular Hemoglobin 30.4 pg 27.0-33.0 Norm al (applies to non-numeric results) [facility] ([facility] ) Mean Corpuscular HGB Conc 33.1 g/dL 32.0-36.5 Normal (applies to non-numeric results) [facility] ([facility] ) Platelet Count, Automated 242 10 150-450 Normal (applies to non-numeric results) [facility] ([facility] ) Neutrophils % 46.0 % 36.0-66.0 Normal (applies to non-numeric re sults) [facility] ([facility] Lymph % 45.6 % 24.0-44.0 Above high normal [facility] ([facility] [place] % 5.8 % 0.0-5.0 Above high normal [facility] ([facility] Eos % 1.8 % 0.0-3.0 Normal (applies to non-numeric resul ts) [facility] ([facility] Baso % 0.5 % 0.0-1.0 Normal (applies to non-numeric resul ts) [facility] ([facility] Nucleated Red Blood Cell % 0.0 % 0-0 Normal (applies to n on-numeric results) [facility] ([facility] Immature Granulocyte % 0.3 % 0-3.0 Normal (applies to non-n umeric results) [facility] ([facility] Neutrophils # 4.0 10 1.5-8.5 Normal (applies to non-numeric re sults) [facility] ([facility] Baso # 0.0 10 0.0-0.2 Normal (applies to non-numeric resul ts) [facility] ([facility] [place] # 0.5 10 0.0-0.8 Normal (applies to non-numeric resul ts) [facility] ([facility] Lymph # 4.0 10 1.5-5.0 Normal (applies to non-numeric resul ts) [facility] ([facility] Eos # 0.2 10 0.0-0.5 Normal (applies to non-numeric resul ts) [facility] ([facility] ID Date Data Source [id number] 08/23/2019 10:26:00 AM EDT [facility] ([facility] Name Value Range Interpretation Code Description Data Tati rce(s) Supporting Document(s) Statement of adequacy [Interpretation] o f Cervical or vaginal smear or scraping by Cyto stain Laboratory test result [facility] ([facility] Source.............Endocervix No. of con tainers..01 ThinPrep Vial [id number] Laboratory test finding (navigational concept) Laboratory test result [facility] ([facility] Source.............Endocervix No. of con tainers..01 ThinPrep Vial [id number] Pathology report final diagnosis Narrative Laboratory test result [facility] ([facility] Source.............Endocervix No. of con tainers..01 ThinPrep Vial [id number] Nursery Supervisor who read Cyto stain of Cervical or vaginal smear or scraping Laboratory test result [facility] ([facility] Source.............Endocervix No. of con tainers..01 ThinPrep Vial [id number] Laboratory test finding (navigational concept) Laboratory test result [facility] ([facility] Source.............Endocervix No. of con tainers..01 ThinPrep Vial [id number] Cytology report of Cervical or vaginal smear or scrapi ng Cyto stain.thin prep Laboratory test result [facility] ([facility] Source.............Endocervix No. of con tainers..01 ThinPrep Vial [id number] Note: Laboratory test result [facility] ([facility] Source.............Endocervix No. of con tainers..01 ThinPrep Vial [id number] Microscopic observation [Identifier] in Unspecified sp ecimen by Other stain Laboratory test result [facility] ([facility] Source.............Endocervix No. of con tainers..01 ThinPrep Vial [id number] Laboratory test finding (navigational concept) Laboratory test result [facility] ([facility] Source.............Endocervix No. of con tainers..01 ThinPrep Vial [id number] ID Date Data Source [id number] 08/23/2019 10:19:00 AM EDT [facility] ([facility] Name Value Range Interpretation Code Description Data Tati rce(s) Supporting Document(s) Chlamydia trachomatis rRNA [Presence] in Cervix by Probe and target amplification method Laboratory test result [facility] ([facility] SRC:VAGINAL Neisseria gonorrhoeae rRNA [Presence] in Unspecified specimen by Probe and target amplification method Laboratory test result [facility] ([facility] SRC:VAGINAL ID Date Data Source [id number] 08/23/2019 10:19:00 AM EDT [facility] ([facility] Name Value Range Interpretation Code Description Data Tati rce(s) Supporting Document(s) Ellen species Laboratory test result [facility] ([facility] SRC:VAGINAL Gardnerella vaginalis Laboratory test result Abn ormal (applies to non-numeric results) [facility] ([facility] ) SRC:VAGINAL Trichomonas vaginalis Laboratory test result [facility] ([facility] SRC:VAGINAL ID Date Data Source [id number] 08/23/2019 10:19:00 AM EDT [facility] ([facility] Name Value Range Interpretation Code Description Data Tati rce(s) Supporting Document(s) Bacterial vaginosis and vaginitis rRNA panel - Vaginal fluid by DNA probe Laboratory test result [facility] ([facility] Procedure Social History Code Duration Value Status Description Data Source(s ) Smoking 05/24/2020 12:00:00 AM EST Unknown if ever smoked comp leted Unknown if ever smoked [facility] ([facility]) Smoking 05/22/2020 12:00:00 AM EST Unknown if ever smoked comp leted Unknown if ever smoked [facility] ([facility]) Smoking 05/18/2020 12:00:00 AM EST Unknown if ever smoked comp leted Unknown if ever smoked [facility] ([facility]) Smoking 05/01/2020 12:00:00 AM EST Unknown if ever smoked comp leted Unknown if ever smoked [facility] ([facility]) Smoking 04/18/2020 12:00:00 AM EST Unknown if ever smoked comp leted Unknown if ever smoked [facility] ([facility]) Smoking 04/04/2020 12:00:00 AM EST Unknown if ever smoked comp leted Unknown if ever smoked [facility] ([facility]) Smoking 03/02/2020 12:00:00 AM EST Unknown if ever smoked comp leted Unknown if ever smoked [facility] ([facility]) Smoking 02/29/2020 12:00:00 AM EST Unknown if ever smoked comp leted Unknown if ever smoked [facility] ([facility]) Smoking 02/16/2020 12:00:00 AM EDT Unknown if ever smoked comp leted Unknown if ever smoked [facility] ([facility]) Smoking 02/02/2020 12:00:00 AM EDT Unknown if ever smoked comp leted Unknown if ever smoked [facility] ([facility]) Smoking 01/20/2020 12:00:00 AM EDT Unknown if ever smoked comp leted Unknown if ever smoked [facility] ([facility]) Smoking 12/21/2019 12:00:00 AM EDT Unknown if ever smoked comp leted Unknown if ever smoked [facility] ([facility]) Smoking 10/12/2019 12:00:00 AM EDT Unknown if ever smoked comp leted Unknown if ever smoked [facility] ([facility]) Smoking 09/29/2019 12:00:00 AM EDT Unknown if ever smoked comp leted Unknown if ever smoked [facility] ([facility]) Smoking 09/23/2019 12:00:00 AM EDT Unknown if ever smoked comp leted Unknown if ever smoked [facility] ([facility]) Smoking 09/15/2019 12:00:00 AM EDT Unknown if ever smoked comp leted Unknown if ever smoked [facility] ([facility]) Smoking 08/30/2019 12:00:00 AM EDT Unknown if ever smoked comp leted Unknown if ever smoked [facility] ([facility]) Smoking 08/15/2019 12:00:00 AM EDT Unknown if ever smoked comp leted Unknown if ever smoked [facility] ([facility]) Smoking 07/25/2019 12:00:00 AM EDT Unknown if ever smoked comp leted Unknown if ever smoked [facility] ([facility]) Vital Signs ID Date Data Source [id number] Name Value Range Interpretation Code Description Data Source(s) Diastolic blood pressure 0 mm[Hg] Normal (applies to non-numeric results) 0 mm[Hg] [facility] ([facility]) Systolic blood pressure 0 mm[Hg] Normal (applies t o non-numeric results) 0 mm[Hg] [facility] Body mass index (BMI) [Ratio] 0.00 kg/m2 No rmal (applies to non-numeric results) 0.00 kg/m2 [facility] ([facility]) Body weight Measured 0.00 lbs Normal (applies to n on-numeric results) 0.00 lbs [facility] ([facility]) Body height 0.00 in Normal (applies to non-numeric resu lts) 0.00 in [facility] ([facility]) Diastolic blood pressure 0 mm[Hg] Normal (applies to non-numeric results) 0 mm[Hg] [facility] ([facility]) Systolic blood pressure 0 mm[Hg] Normal (applies t o non-numeric results) 0 mm[Hg] [facility] ([facility]) Body mass index (BMI) [Ratio] 0.00 kg/m2 No rmal (applies to non-numeric results) 0.00 kg/m2 [facility] ([facility]) Body weight Measured 0.00 lbs Normal (applies to n on-numeric results) 0.00 lbs [facility] Body height 0.00 in Normal (applies to non-numeric resu lts) 0.00 in [facility] ([facility]) Oxygen saturation in Arterial blood by Pulse oximetry 98 % 98 % [facility] ([facility] Body mass index (BMI) [Ratio] 25.7 kg/m2 25.7 k g/m2 [facility] ([facility] [place] body weight 130 [lb_av] 130 [lb_av] [facility] ([facility] Body weight 159.00 [lb_av] 159.00 [lb_av] [facility] ([facility] Body height 66 [in_i] 66 [in_i] [facility] ([facility] 5'6" Respiratory rate 16 /min 16 /min [facility] ( [facility] Heart rate 86 /min 86 /min [facility] ([facility] Body temperature 98.2 [degF] 98.2 [degF] [facility] ([facility] Diastolic blood pressure 68 mm[Hg] 68 mm[Hg] [facility] ([facility] Systolic blood pressure 106 mm[Hg] 106 mm[Hg] [facility] ([facility] Diastolic blood pressure 0 mm[Hg] Normal (applies to non-numeric results) 0 mm[Hg] [facility] ([facility]) Systolic blood pressure 0 mm[Hg] Normal (applies t o non-numeric results) 0 mm[Hg] [facility] ([facility]) Body mass index (BMI) [Ratio] 0.00 kg/m2 No rmal (applies to non-numeric results) 0.00 kg/m2 [facility] ([facility]) Body weight Measured 0.00 lbs Normal (applies to n on-numeric results) 0.00 lbs [facility] ([facility]) Body height 0.00 in Normal (applies to non-numeric resu lts) 0.00 in [facility] ([facility]) Oxygen saturation in Arterial blood by Pulse oximetry 97 % 97 % [facility] ([facility] Body mass index (BMI) [Ratio] 26.0 kg/m2 26.0 k g/m2 [facility] ([facility] [place] body weight 130 [lb_av] 130 [lb_av] MEDEN T ([facility] Body weight 161.00 [lb_av] 161.00 [lb_av] MEDEN T ([facility] Body height 66 [in_i] 66 [in_i] [facility] 5'6" Respiratory rate 16 /min 16 /min [facility] ( [facility] Heart rate 82 /min 82 /min [facility] ([facility] Body temperature 98.4 [degF] 98.4 [degF] [facility] ([facility] Diastolic blood pressure 70 mm[Hg] 70 mm[Hg] [facility] ([facility] Systolic blood pressure 102 mm[Hg] 102 mm[Hg] M EDENT ([facility] Oxygen saturation in Arterial blood by Pulse oximetry 98 % 98 % [facility] ([facility] Body mass index (BMI) [Ratio] 27.9 kg/m2 27.9 k g/m2 [facility] ([facility] Body weight 173.00 [lb_av] 173.00 [lb_av] MEDEN T ([facility] Body height 66 [in_i] 66 [in_i] [facility] 5'6" Respiratory rate 16 /min 16 /min [facility] ( [facility] Heart rate 100 /min 100 /min [facility] ([facility] Body temperature 97.5 [degF] 97.5 [degF] [facility] ([facility] Diastolic blood pressure 74 mm[Hg] 74 mm[Hg] [facility] ([facility] Systolic blood pressure 112 mm[Hg] 112 mm[Hg] M EDENT ([facility] Oxygen saturation in Arterial blood by Pulse oximetry 98 % 98 % [facility] ([facility] Body mass index (BMI) [Ratio] 28.4 kg/m2 28.4 k g/m2 [facility] ([facility] Body weight 176.00 [lb_av] 176.00 [lb_av] MEDEN T ([facility] Body height 66 [in_i] 66 [in_i] MED[facility] ([facility] 5'6" Respiratory rate 16 /min 16 /min [facility] ( [facility] Heart rate 68 /min 68 /min [facility] ([facility] Body temperature 98.0 [degF] 98.0 [degF] [facility] ([facility] Diastolic blood pressure 64 mm[Hg] 64 mm[Hg] [facility] ([facility] Systolic blood pressure 112 mm[Hg] 112 mm[Hg] M EDENT ([facility]
--- OUTSIDE RECORDS SUMMARY | 2020-05-25 17:00 | CCD ---
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 03/22 F60.3 Borderline Personality Disorder Active 04/18/20 20 F10.19 Alcohol abuse with unspecified alcohol-induced disorde r Active 04/18/2020 Medications Rx Norm Medication Route Route Concept Start Date Stop Date Dosage Satya quency Duration Formula Strength Dosage Form Dosage Form Code Dosage Description Medication Id Account Npid Author First Name Author Last Name Taxonomy Code Taxonomy Desc Phone Number [phone] lamotrigine by mouth [id number] 03/02/2020 05/01/2020 once a day 30 100 mg tablet [id number] [phone] Nacny Hernandez [id number] Nurse Pra ctitioner [phone] [id number] sertraline by mouth [id number] 03/02/2020 05/01/2020 once a day 30 100 mg tablet 83192 [id number] [id number] Nancy Hernandez [id number] Nurse Pra ctitioner [id number] Social History Social History Element Description Concept Effective Date Smoking Status Unknown if ever smoked [id number] Immunizations No Data in Section Vital Signs No Data in Section Procedures Date Concept Id Description Targeted Site Concept Targeted Site Concept Type 04/17/2020 [id number]"Psychotherapy CPT Patient has no history of implantable de vices Encounters Encounter Start Date End Date Encounter Type Description Diagnosis Di agnosis Desc Location Author First Name Author Last Name Npid Taxonomy Cod e Taxonomy Desc Phone Number Location Addr1 Location Addr2 Location [facility] Location [facility] te Location [facility] [id number] 04/17/2020 04/17/2020 [id number]"Psychothera py F41.9 Anxiety Disorder, Unspecified [facility] Osman Hay [phone] [id number] Glass Sander [phone] [address] [address] Plan of Treatment No Data in Section Lab Results No Data in Section Instructions No Data in Section Insurance Providers Insurance Id Policy Effective Date Policy Thru Date PredPol Shekhar cox [id number] 2019 Mague rahman Plan 1
--- OUTSIDE RECORDS SUMMARY | 2020-05-25 17:00 | CCD ---
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 02/18 F60.3 Borderline Personality Disorder Active 03/02/20 20 F10.19 Alcohol abuse with unspecified alcohol-induced disorde r Active 03/02/2020 Medications Rx Norm Medication Route Route Concept Start Date Stop Date Dosage Satya quency Duration Formula Strength Dosage Form Dosage Form Code Dosage Description Medication Id Account Npid Author First Name Author Last Name Taxonomy Code Taxonomy Desc Phone Number [phone] sertraline by mouth [id number] 01/20/2020 03/02/2020 once a day 45 50 mg tablet 87162 [id number] [phone] Nancy Granto [id number] Nurse Pra ctitioner [phone] [id number] lamotrigine by mouth [id number] 01/20/2020 03/02/2020 twice a day 30 25 mg tablet 20044 [id number] Nancy Granto [id number] Nurse Pra ctitioner [phone] [id number] lamotrigine by mouth [id number] 03/02/2020 05/01/2020 once a day 30 100 mg tablet 99907 [phone] Nancy Granto [id number] Nurse Pra ctitioner [phone] [id number] sertraline by mouth [id number] 03/02/2020 05/01/2020 once a day 30 100 mg tablet 20263 [id number] [id number] Nancy Hernandez [id number] Nurse Pra ctitioner [id number] Social History Social History Element Description Concept Effective Date Smoking Status Unknown if ever smoked [id number] Immunizations No Data in Section Vital Signs Encounter Date Height Ins Weight Lbs Bmi Bp Systolic Bp Diastoli c Oxygen Saturation Respiration Rate Pulse Rate Body Temp Head Circumference Heigh t Lying 03/02/2020 0.00 0.00 0.00 0 0 0.00 0 0 0.00 0.0 0.0 0 Procedures Date Concept Id Description Targeted Site Concept Targeted Site Concept Type 03/02/2020 [id number] [facility] Tele[facility] E/M Lvl 3--Est pt CPT Patient has no history of implantable de vices Encounters Encounter Start Date End Date Encounter Type Description Diagnosis Di agnosis Desc Location Author First Name Author Last Name Npid Taxonomy Cod e Taxonomy Desc Phone Number Location Addr1 Location Addr2 Location [facility] Location [facility] Location [facility] [id number] 03/02/2020 03/02/2020 [id number] [facility] Telemed E/M Lvl 3--Est p t F41.9 Anxiety Disorder, Unspecified Community [facility] David Cruz [phone] [id number] Nurse Practitioner [phone] [place] [phone] Plan of Treatment No Data in Section Lab Results No Data in Section Instructions No Data in Section Functional Cognitive Status No Data in Section Insurance Providers Insurance Id Policy Effective Date Policy Thru Date Company Shekhar cox [id number] 2019 Mague rahman Plan 1
[2020-05-25] MEDS ORDERED: LAMI1TAB7 (17:12)
[2020-05-25 18:14] LABS: BASO # 0.1 10^3/uL (0.0-0.2); BASO % 0.6 % (0.0-1.0); EOS # 0.2 10^3/uL (0.0-0.5); EOS % 1.7 % (0.0-3.0); HEMATOCRIT 40.2 % (36.0-47.0); HEMOGLOBIN 13.2 g/dl (12.0-15.5); LYMPH # 2.9 10^3/uL (1.5-5.0); LYMPH % 30.3 % (24.0-44.0); MEAN CORPUSCULAR HEMOGLOBIN 30.3 pg (27.0-33.0); MEAN CORPUSCULAR HGB CONC 32.8 g/dl (32.0-36.5); MEAN CORPUSCULAR VOLUME 92.2 fl (80.0-96.0); MONO # 0.6 10^3/uL (0.0-0.8); MONO % 6.3 % (0.0-5.0); NEUTROPHILS # 5.8 10^3/uL (1.5-8.5); NEUTROPHILS % 60.7 % (36.0-66.0); PLATELET COUNT, AUTOMATED 293 10^3/uL (150-450); RED BLOOD COUNT 4.36 10^6/uL (4.00-5.40); WHITE BLOOD COUNT 9.6 10^3/uL (4.0-10.0)
[2020-05-25 18:34] LABS: BLOOD UREA NITROGEN 14 MG/DL (7-18); CALCIUM LEVEL 9.6 MG/DL (8.5-10.1); CARBON DIOXIDE LEVEL 29 MEQ/L (21-32); CHLORIDE LEVEL 106 MEQ/L (98-107); GLOMERULAR FILTRATION RATE > 60.0 (>60); GLUCOSE, FASTING 97 MG/DL (70-100); POTASSIUM SERUM 4.1 MEQ/L (3.5-5.1); SODIUM LEVEL 140 MEQ/L (136-145)
--- NOTE | 2020-05-25 19:28 | REPVR ---
PROCEDURE INFORMATION: Exam: US Nonobstetric Pelvis; Complete Exam date and time: 05/25/2020 7:19 PM Age: 29 years old Clinical indication: Pelvic pain; Additional info: Iud placement right lower abdominal pain (ovarian) TECHNIQUE: Imaging protocol: Transabdominal pelvic nonobstetric ultrasound. Complete exam. Real time ultrasound with image documentation. COMPARISON: US PELVIC NON-OB COMPLETE 01/24/2017 5:54 PM FINDINGS: Uterus/cervix: Uterus measures 7.8 x 4.3 x 4.8 cm. Endometrial echo complex measures 10.5 mm consistent with midcycle. IUD demonstrated centrally within the endometrial cavity. Right adnexa: Right ovary measures 2.7 x 1.4 x 2.9 cm. Resistive index 0.66. Normal flow. Left adnexa: Left ovary measures 2.8 x 5.7 x 2.7 cm. Resistive index 0.56. Normal flow. Dominant follicle left ovary measures 2 x 1.5 x 1.7 cm. Intraperitoneal space: No intraperitoneal fluid. Urinary bladder: Normal. IMPRESSION: 1. IUD demonstrated within the uterine cavity as described above. 2. Otherwise unremarkable. Electronically signed by: Jakub Manuel On 05/25/2020 19:28:49 PM
[2020-05-25 20:24] VITALS: BP 117/69
[2020-05-25 21:20] LABS: CHLAMYDIA DNA AMPLIFICATION NEGATIVE (NEGATIVE); GC DNA AMPLIFICATION NEGATIVE (NEGATIVE)
[2020-05-26] MEDS ORDERED: METR-265 PO (12:01)
--- NOTE | 2020-05-26 12:09 | ED PDOC ---
Post-Departure Follow-Up Talked to patient today to inform her that she was positive for Bacterial Vagino sis. A script has been called into her pharmacy and patient is aware. ALIDA WYATT PA-C May 26, 2020 12:09
== END 2020-05-25 20:33 | disposition home or self-care (01) ==
LOC: M ED 16:52
DX: N93.9 Abnormal uterine and vaginal bleeding, unspecified (principal); N94.10 Unspecified dyspareunia; N89.8 Other specified noninflammatory disorders of vagina; N92.1 Excessive and frequent menstruation with irregular cycle; R10.9 Unspecified abdominal pain; R10.2 Pelvic and perineal pain; Z97.5 Presence of (intrauterine) contraceptive device

== ENCOUNTER 2021-03-09 03:46 | Emergency (ER) | payer BC, OTHER, SELFPAY ==
[~2021-03-09] VITALS: Ht 162.6 cm; Wt 72.7 kg
[~2021-03-09 03:46] MED LIST changes: +CEPH500C PO; +LAMI1TAB7; +METR-265 PO
--- OUTSIDE RECORDS SUMMARY | 2021-03-09 03:57 | CCD | Continuity of Care Document ---
Author Author Livier LYNCH [facility] Organization Unknown Address 3 [facility] [address] [place] [address] Phone [phone] Problems Active Problems Provider Date Anxiety Anna Luciano D., FNP-C Onset: 11/22 Methicillin resistant staphylococcus aureus carrier Anna Duran D., FNP-C Onset: 11/22/2014 Moderate recurrent major depression Otilio [...] SIG Qnty Indications Ordering Provide r Date Diflucan 150mg Tablets one pill by mouth today followed by 1 in 1 week. 2tabs Sarath Wilder D.O., FAAFP 12/07/2020 Mupirocin 2% Ointment top twice a day x 10 days to arms 44gm Sarath Wilder D.O., FAAFP Paragard Intrauterine Copper Contracepti ve T380a T380a IUD [facility] Unknown History Medications Ciprofloxacin HCL 250mg Tablets 1 by mouth twice a day x 5 days 10tabs Sarath Wilder D.O., FAAF P 12/07/2020 - 12/13/2020 Cephalexin 500mg Capsules 1 by mouth three times a day 30caps Sarath Wilder D.O., [facility] 07/2020 - 08/31/2020 Medications Administered in Office Medication SIG Qnty Indications Ordering Provider Date Injection (SC)/(Im) Injection Dorie Jennings FNP-BC 04/09/2016 Immunizations CPT Code Status Date Vaccine Lot # [id number] Given 05/07/2016 PPD Tuberculosis Intradermal 33912 Given 04/09/2016 Influenza Virus Vaccine, Quadrivalent, Slit Virus, Im Use 3Y & Up [id number] Vital Signs Date Vital Result Comment 12/07/2020 11:22am BP Systolic 110 mmHg BP Diastolic 72 mmHg Body Temperature 97.5 F Heart Rate 78 /min Respiratory Rate 16 /min Height 66 inches 5'6" Weight 165.00 lb [place] Body Weight 130 lb BMI (Body Mass Index) 26.6 kg/m2 O2 % BldC Oximetry 98 % 08/21/2020 3:48pm BP Systolic 110 mmHg BP Diastolic 72 mmHg Body Temperature 97.8 F Heart Rate 91 /min Respiratory Rate 16 /min Height 66 inches 5'6" Weight 182.00 lb [place] Body Weight 130 lb BMI (Body Mass Index) 29.4 kg/m2 O2 % BldC Oximetry 97 % Results Test Acquired Date Facility Test Result H/L Range Note Urine Culture, Routine 12/07/2020 [facility] [place] Urine Culture, Routine Final report Abnormal 1, 2 Result 1 Escherichia coli Abnormal 3 Antimicrobial Susceptibility See Comment: 4 U/A DIP FPA 12/07/2020 [facility] Asso ciates Color Urine YELLOW Yellow Appearance HAZY Clear Specific [place] 1.025 1.00-1.03 PH Urine 7.0 5.0-8.0 Glucose Urine NEG Negative Bilirubin Urine NEG Negative Ketones TRACE Negative Blood Urine 1+ High Negative Protein Urine NEG Negative Urobilinogen .2 EU/dl 0.2-1.0 Nitrite 1+ High Negative Leukocytes 1+ High Negative Aerobic Bacterial Culture 08/21/2020 [facility] [place] Aerobic Bacterial Culture Final report 5 Result 1 See Comment: 6 1 SRC:URINE 2 Source of Specimen: URINE 3 Escherichia coli Source of Specimen: URINE Greater than 100,000 colony forming units per mL Cefazolin <=4 ug/mL Cefazolin with an JAVI <=16 predicts susceptibility to the oral agents cefaclor, cefdinir, cefpodoxime, cefprozil, cefuroxime, cephalexin, and loracarbef when used for therapy of uncomplicated urinary tract infections due to E. coli, Klebsiella pneumoniae, and Proteus mirabilis. 4 Source of Specimen: URINE S = Susceptible; I = Intermediate; R = Resistant P = Positive; N = Negative MICS are expressed in micrograms per mL Antibiotic RSLT#1 RSLT#2 RSLT#3 RSLT#4 Amoxicillin/Clavulanic Acid S Ampicillin S Cefepime S Ceftriaxone S Cefuroxime S Ciprofloxacin S Ertapenem S Gentamicin S Imipenem S Levofloxacin S Meropenem S Nitrofurantoin S Piperacillin/Tazobactam S Tetracycline S Tobramycin S Trimethoprim/Sulfa S 5 Preliminary report 6 No growth in 36 - 48 hours. Procedures Date Code Description Status 12/07/2020 38140 Office/Outpatient Established [place] w MDM 20-29 Min Completed 08/21/2020 46740 Office/Outpatient Established [place] w MDM 20-29 Min Completed Medical Devices Description No Information Available Encounters Type Date Location Provider Dx Diagnosis Office Visit 12/07/2020 11:15a [place] [facility] Otilio Lynch, RP A N39.0 Urinary tract infection, site not specified Office Visit 08/21/2020 3:45p [place] [facility] Otilio Lynch, RP A R21 Rash and other nonspecific skin eruption Assessments Date Code Description Provider 12/07/2020 N39.0 Urinary tract infection, site no t specified Otilio Lynch, RPA 08/21/2020 R21 Rash and other nonspecific skin eruption Otilio Lynch, RPA Plan of Treatment No Information Available Functional Status Description No Information Available Mental Status Description No Information Available Referrals Description No Information Available
--- OUTSIDE RECORDS SUMMARY | 2021-03-09 03:57 | CCD | Continuity of Care Document ---
Author Author Livier LYNCH [facility] Organization Unknown Address 3 [facility] [address] [place] [address] Phone [phone] Problems Active Problems Provider Date Anxiety Anna [...] SIG Qnty Indications Ordering Provide r Date Ciprofloxacin HCL 250mg Tablets 1 by mouth twice a day x 5 days 10tabs Sarath Wilder D.O., FAAF P 12/07/2020 Diflucan 150mg Tablets one pill by mouth today followed by 1 in 1 week. 2tabs Sarath Wilder D.O., FAAFP 12/07/2020 Mupirocin 2% Ointment top twice a day x 10 days to arms 44gm Sarath Wilder D.O., FAAFP Paragard Intrauterine Copper Contracepti ve T380a T380a IUD [facility] Unknown History Medications Cephalexin 500mg Capsules 1 by mouth three times a day 30caps Sarath Wilder D.O., FAAFP 07/2020 - 08/31/2020 Medications Administered in Office Medication SIG Qnty Indications Ordering Provider Date Injection (SC)/(Im) Injection Dorie Jennings FNP-BC 04/09/2016 Immunizations CPT Code Status Date Vaccine Lot # [id number] Given 05/07/2016 PPD Tuberculosis Intradermal 83220 Given 04/09/2016 Influenza Virus Vaccine, Quadrivalent, Slit Virus, Im Use 3Y & Up [id number] Vital Signs Date Vital Result Comment 12/07/2020 11:22am BP Systolic 110 mmHg BP Diastolic 72 mmHg Body Temperature 97.5 F Heart Rate 78 /min Respiratory Rate 16 /min Height 66 inches 5'6" Weight 165.00 lb [place] Body Weight 130 lb BMI (Body Mass Index) 26.6 kg/m2 O2 % BldC Oximetry 98 % 08/21/2020 3:48pm BP Systolic 110 mmHg BP Diastolic 72 mmHg Body Temperature 97.8 F Heart Rate 91 /min Respiratory Rate 16 /min Height 66 inches 5'6" Weight 182.00 lb [place] Body Weight 130 lb BMI (Body Mass Index) 29.4 kg/m2 O2 % BldC Oximetry 97 % Results Test Acquired Date Facility Test Result H/L Range Note Urine Culture, Routine 12/07/2020 [facility] [place] Urine Culture, Routine Preliminary repo <SEE NOTE> Abnormal 1, 2 Result 1 Escherichia coli Abnormal 3 U/A DIP FPA 12/07/2020 [facility] Asso ciates Color Urine YELLOW Yellow Appearance HAZY Clear Specific [place] 1.025 1.00-1.03 PH Urine 7.0 5.0-8.0 Glucose Urine NEG Negative Bilirubin Urine NEG Negative Ketones TRACE Negative Blood Urine 1+ High Negative Protein Urine NEG Negative Urobilinogen .2 EU/dl 0.2-1.0 Nitrite 1+ High Negative Leukocytes 1+ High Negative Aerobic Bacterial Culture 08/21/2020 [facility] [place] Aerobic Bacterial Culture Final report 4 Result 1 See Comment: 5 1 SRC:URINE 2 Preliminary report Source of Specimen: URINE 3 Escherichia coli Source of Specimen: URINE Greater than 100,000 colony forming units per mL 4 Preliminary report 5 No growth in 36 - 48 hours. Procedures Date Code Description Status 12/07/2020 71382 Office/Outpatient Established [place] w MDM 20-29 Min Completed 08/21/2020 20351 Office/Outpatient Established Lo w [facility] 20-29 Min Completed Medical Devices Description No Information Available Encounters Type Date Location Provider Dx Diagnosis Office Visit 12/07/2020 11:15a [place] [facility] Otilio Lynch, RP A N39.0 Urinary tract infection, site not specified Office Visit 08/21/2020 3:45p [place] [facility] Otilio Lynch, RP A R21 Rash [...]
--- OUTSIDE RECORDS SUMMARY | 2021-03-09 03:57 | CCD | Continuity of Care Document ---
Author Author Livier LYNCH [facility] Organization Unknown Address 3 [facility] [address] [place] [address] Phone [phone] Problems Active Problems Provider Date Anxiety Anna [...] Denies Drug Use Tobacco Use Start: Unknown End: Unknown Patient is a former smoker Allergies and adverse reactions Description No Known Drug Allergies Medications Active Medications SIG Qnty Indications Ordering Provide r Date Azithromycin 250mg Tablets 2 by mouth stat followed by 1 by mouth every day x 4 days 6tabs Parveen Wilder D.O., FAAFP 03/07/2021 Diflucan 150mg Tablets 1one pill by mouth today followed by 1 in 1 week. 2tabs Sarath Wilder D.O., FAAFP 03/07/2021 Hydrocortisone-Acetic Acid 1-2% So lution 2gtts right ear four times a day x 10 days 10ml Javi Wilder D.O., FAAFP 03/07/2021 Mupirocin 2% Ointment top twice a day x 10 days to arms 44gm Sarath Wilder D.O., FAAFP Paragard Intrauterine Copper Contracepti ve T380a T380a IUD [facility] Unknown History Medications Azithromycin 500mg Tablets 2 tablet by mouth today 2tabs Guru Mathew M.D. 12/15/19 - 03/07/2021 Ciprofloxacin HCL 250mg Tablets 1 by mouth twice a day x 5 days 10tabs Sarath Wilder D.O., FAAF P 12/07/2020 - 12/13/2020 Diflucan 150mg Tablets one pill by mouth today followed by 1 in 1 week. 2tabs Sarath Wilder D.O., FAAFP 12/07/2020 - 2020 Medications Administered in Office Medication SIG Qnty Indications Ordering Provider Date Injection (SC)/(Im) Injection Dorie Jennings FNP-BC 04/09/2016 Immunizations CPT Code Status Date Vaccine Lot # [id number] Given 05/07/2016 PPD Tuberculosis Intradermal 75274 Given 04/09/2016 Influenza Virus Vaccine, Quadrivalent, Slit Virus, Im Use 3Y & Up [id number] Vital Signs Date Vital Result Comment 03/07/2021 3:10pm BP Systolic 136 mmHg BP Diastolic 82 mmHg Body Temperature 98.0 F Heart Rate 75 /min Respiratory Rate 16 /min Height 66 inches 5'6" Weight 161.00 lb [place] Body Weight 130 lb BMI (Body Mass Index) 26.0 kg/m2 O2 % BldC Oximetry 97 % 12/07/2020 11:22am BP Systolic 110 mmHg BP Diastolic 72 mmHg Body Temperature 97.5 F Heart Rate 78 /min Respiratory Rate 16 /min Height 66 inches 5'6" Weight 165.00 lb [place] Body Weight 130 lb BMI (Body Mass Index) 26.6 kg/m2 O2 % BldC Oximetry 98 % Results Test Acquired Date Facility Test Result H/L Range Note Chlamydia/GC Amplification 12/13/2020 [facility] [place] Chlamydia trachomatis, [place] Positive Abnormal Negative 1 Neisseria gonorrhoeae, [place] Negative Negative 2 Urine Culture, Routine 12/07/2020 [facility] [place] Urine Culture, Routine Final report Abnormal 3, 4 Result 1 Escherichia coli Abnormal 5 Antimicrobial Susceptibility See Comment: 6 U/A DIP FPA 12/07/2020 [facility] As[facility] ci[facility] Color Urine YELLOW Yellow Appearance HAZY Clear Specific [place] 1.025 1.00-1.03 PH Urine 7.0 5.0-8.0 Glucose Urine NEG Negative Bilirubin Urine NEG Negative Ketones TRACE Negative Blood Urine 1+ High Negative Protein Urine NEG Negative Urobilinogen .2 EU/dl 0.2-1.0 Nitrite 1+ High Negative Leukocytes 1+ High Negative 1 Source of Specimen: urine 2 Source of Specimen: urine 3 SRC:URINE 4 Source of Specimen: URINE 5 Escherichia coli Source of Specimen: URINE Greater than 100,000 colony forming units per mL Cefazolin <=4 ug/mL Cefazolin with an JAVI <=16 predicts susceptibility to the oral agents cefaclor, cefdinir, cefpodoxime, cefprozil, cefuroxime, cephalexin, and loracarbef when used for therapy of uncomplicated urinary tract infections due to E. coli, Klebsiella pneumoniae, and Proteus mirabilis. 6 Source of Specimen: URINE S = Susceptible; [...] S Tetracycline S Tobramycin S Trimethoprim/Sulfa S Procedures Date Code Description Status 03/07/2021 70819 Office/Outpatient Established [facility] 20-29 Min Completed 12/07/2020 53670 Office/Outpatient Established [facility] 20-29 Min Completed Medical Devices Description No Information Available Encounters Type Date Location Provider Dx Diagnosis Office Visit 03/07/2021 3:15p [place] [facility] Otilio Lynch, RP A H66.91 Otitis media, unspecified, right ear H60.91 Unspecified otitis externa, right ear Office Visit 12/07/2020 11:15a [place] [facility] Otilio Lynch, RP A N39.0 Urinary tract infection, site not specified Assessments Date Code Description Provider 03/07/2021 H66.91 Otitis media, unspecified, right ear Otilio Lynch, RPA 03/07/2021 H60.91 Unspecified otitis externa, righ t ear Otilio Lynch, RPA 12/07/2020 N39.0 Urinary tract infection, site no t specified Otiilo Lynch RPA Plan of Treatment No Information Available Functional Status Description No Information Available Mental Status Description No Information Available Referrals Description No Information Available
--- OUTSIDE RECORDS SUMMARY | 2021-03-09 03:57 | CCD | Continuity of Care Document ---
Author Author Livier [facility] Organization Unknown Address [address] [place] [address] [place] [id number] Phone [phone] Problems Active Problems Provider Date Anxiety Anna [...] Qnty Indications Ordering Provide r Date Azithromycin 500mg Tablets 2 tablet by mouth today 2tabs Guru Mathew M.D. 12/15/19 21 Mupirocin 2% Ointment top twice a day [...] Sarath Wilder D.O., FAAFP 12/07/2020 - 2020 Cephalexin 500mg Capsules 1 by mouth three times a day 30caps Sarath Wilder D.O., [facility] 07/2020 - 08/31/2020 Medications Administered in Office Medication SIG Qnty Indications Ordering Provider Date Injection (SC)/(Im) Injection Dorie Jennings FNP- 04/09/2016 Immunizations CPT Code Status Date Vaccine Lot # [id number] Given 05/07/2016 PPD Tuberculosis Intradermal 26360 Given 04/09/2016 Influenza Virus Vaccine, Quadrivalent, Slit Virus, Im Use 3Y & Up [id number] Vital Signs Date Vital Result Comment 12/07/2020 11:22am BP Systolic 110 mmHg BP Diastolic 72 mmHg Body Temperature 97.5 F Heart Rate 78 /min Respiratory Rate 16 /min Height 66 inches 5'6" Weight 165.00 lb [place] Body Weight 130 lb BMI (Body Mass Index) 26.6 kg/m2 O2 % BldC Oximetry 98 % 08/21/2020 3:48pm BP Systolic 110 mmHg BP Diastolic 72 mmHg Body Temperature 97.8 F Heart Rate 91 /min Respiratory Rate 16 /min Height 66 inches 5'6" Weight 182.00 lb [place] Body Weight 130 lb BMI (Body Mass [...] See Comment: 6 U/A DIP FPA 12/07/2020 [facility] Asso ciates Color Urine YELLOW Yellow Appearance HAZY Clear Specific [place] 1.025 1.00-1.03 PH Urine 7.0 5.0-8.0 Glucose Urine NEG Negative Bilirubin Urine NEG Negative Ketones TRACE Negative Blood Urine 1+ High Negative Protein Urine NEG Negative Urobilinogen .2 EU/dl 0.2-1.0 Nitrite 1+ High Negative Leukocytes 1+ High Negative Aerobic Bacterial Culture 08/21/2020 [facility] [place] Aerobic Bacterial Culture Final report 7 Result 1 See Comment: 8 1 Source of Specimen: urine 2 Source [...] S Tetracycline S Tobramycin S Trimethoprim/Sulfa S 7 Preliminary report 8 No growth in 36 - 48 hours. Procedures Date Code Description Status 12/07/2020 94093 Office/Outpatient Established Lo w MDM 20-29 Min Completed 08/21/2020 32385 Office/Outpatient Established Lo w MDM 20-29 Min Completed Medical Devices Description No Information Available Encounters Type Date Location Provider Dx Diagnosis Office Visit 12/07/2020 11:15a [place] [facility] Otilio Lynch, DEL A N39.0 Urinary tract infection, site not specified Office Visit 08/21/2020 3:45p [place] [facility] Otilio Lynch, RP A R21 Rash and other nonspecific skin eruption Assessments Date Code Description Provider 12/07/2020 N39.0 Urinary tract infection, site no t specified Otilio Lynch, NATTY 08/21/2020 R21 Rash and other nonspecific skin eruption Otilio Lynch, NATTY Plan of Treatment No Information Available Functional Status Description No Information Available Mental Status Description No Information Available Referrals Description No Information Available
--- OUTSIDE RECORDS SUMMARY | 2021-03-09 03:57 | CCD | Continuity of Care Document ---
Author Author Livier [facility] Organization Unknown Address [address] [facility] [address] [place] [id number] Phone [phone] Problems Active Problems Provider Date Anxiety Anna [...] CPT Code Status Date Vaccine Lot # [id number] Given 05/07/2016 PPD Tuberculosis Intradermal [id number] Given 04/09/2016 Influenza Virus Vaccine, Quadrivalent, Slit Virus, Im Use 3Y & Up [id number] Vital Signs Date Vital Result Comment 03/07/2021 3:10pm BP Systolic 136 mmHg BP Diastolic 82 mmHg Body Temperature 98.0 F Heart Rate 75 /min Respiratory Rate 16 /min Height 66 inches 5'6" Weight 161.00 lb [place] Body Weight 130 lb BMI (Body Mass Index) 26.0 kg/m2 O2 % BldC Oximetry 97 % 12/07/2020 11:22am BP Systolic 110 mmHg BP Diastolic 72 mmHg Body Temperature 97.5 F Heart Rate 78 /min Respiratory Rate 16 /min Height 66 inches 5'6" Weight 165.00 lb [place] Body Weight 130 lb BMI (Body Mass [...] Urine YELLOW Yellow Appearance HAZY Clear Specific [place] 1.025 1.00-1.03 PH Urine 7.0 5.0-8.0 Glucose [...] S Procedures Date Code Description Status 03/07/2021 49201 Office/Outpatient Established [facility] 20-29 Min Completed 12/07/2020 96574 Office/Outpatient Established [facility] 20-29 Min Completed Medical Devices Description No Information Available Encounters Type Date Location Provider Dx Diagnosis Office Visit 03/07/2021 3:15p [place] [facility] Otilio Lynch, RP A H66.91 Otitis media, unspecified, right ear H60.91 Unspecified otitis externa, right ear Office Visit 12/07/2020 11:15a [place] [facility] Otilio Lynch, RP A N39.0 Urinary tract infection, site not specified Assessments Date Code Description Provider 03/07/2021 H66.91 Otitis media, unspecified, right ear Otilio Lynch, RPA 03/07/2021 H60.91 Unspecified otitis externa, righ t ear Otilio Lynch, RPA 12/07/2020 N39.0 Urinary tract infection, site no t specified Otilio Lynch RPA Plan of Treatment No Information Available Functional Status Description No Information Available Mental Status Description No Information Available Referrals Description No Information Available
--- OUTSIDE RECORDS SUMMARY | 2021-03-09 03:58 | CCD ---
Author Author [facility] Organization [facility] Address Unknown Phone Unavailable Care Team Providers Care Commissioner Conservation Of Resources Name Role Phone Klever Amos Unavailable Unavailable Klever Amos Deborah PA Unavailable Unavailable Klever Amos Deborah PA Unavailable Unavailable Klever Amos Deborah PA Unavailable Unavailable Kleevr Amos Deborah PA Unavailable Unavailable Klever Amos Deborah PA Unavailable Unavailable Klever Amos Deborah PA Unavailable Unavailable Simran Pimentel MD Unavailable Unavailable Simran Pimentel MD Unavailable Unavailable Simran Pimentel MD Unavailable Unavailable Simran Pimentel MD Unavailable Unavailable PAUL, G EDWARD RPA Unavailable Unavailable PAUL, G EDWARD RPA Unavailable Unavailable PAUL, G EDWARD RPA Unavailable Unavailable PAUL, G EDWARD RPA Unavailable Unavailable PAUL, G EDWARD RPA Unavailable Unavailable PAUL, G EDWARD RPA Unavailable Unavailable PAUL, G EDWARD RPA Unavailable Unavailable PAUL, G EDWARD RPA Unavailable Unavailable PAUL, G EDWARD RPA Unavailable Unavailable PAUL, G EDWARD RPA Unavailable Unavailable PAUL, G EDWARD RPA Unavailable Unavailable PAUL, G EDWARD RPA Unavailable Unavailable PAUL, G EDWARD RPA Unavailable Unavailable PAUL, G EDWARD RPA Unavailable Unavailable PAUL, G EDWARD RPA Unavailable Unavailable PAUL, G EDWARD RPA Unavailable Unavailable PAUL, G EDWARD RPA Unavailable Unavailable PAUL, G EDWARD RPA Unavailable Unavailable PAUL, G EDWARD RPA Unavailable Unavailable PAUL, G EDWARD RPA Unavailable Unavailable PAUL, G EDWARD RPA Unavailable Unavailable PAUL, G EDWARD RPA Unavailable Unavailable PAUL, G EDWARD RPA Unavailable Unavailable PAUL, G EDWARD RPA Unavailable Unavailable PAUL, G EDWARD RPA Unavailable Unavailable PAUL, G EDWARD RPA Unavailable Unavailable PAUL, G EDWARD RPA Unavailable Unavailable PAUL, G EDWARD RPA Unavailable Unavailable PAUL, G EDWARD RPA Unavailable Unavailable PAUL, G EDWARD RPA Unavailable Unavailable PAUL, G EDWARD RPA Unavailable Unavailable PAUL, G EDWARD RPA Unavailable Unavailable PAUL, G EDWARD RPA Unavailable Unavailable PAUL, G EDWARD RPA Unavailable Unavailable PAUL, G EDWARD RPA Unavailable Unavailable PAUL, G EDWARD RPA Unavailable Unavailable PAUL, G EDWARD RPA Unavailable Unavailable Cris, D Otilio PA Unavailable [...] Unavailable Cris, D Otilio PA Unavailable Unavailable Crsi, D Otilio PA Unavailable Unavailable Cris, D [...] Otilio PA Unavailable Unavailable Bharti Brewer Unavailable EGORHO, F NANCY FPMHNP Unavailable Unavailable [...] is protected by Article 27-F of the [facility] Public Health law. If you continue you may have access to information: Regarding HIV / AIDS; Provided by facilities licensed or operated by the [facility] Office of Mental Health; or Provided by the [facility] Office for People With Developmental Disabilities. If such information is present, then the following [facility] mandated warning applies: This information has been [...] law may result in a fine or senior living sentence or both. A general authorization for the release of medical or other information is NOT sufficient authorization for further disc losure. Family History Family Member Name Family Member Gender Family Member Status Date o f Status Description Data Source(s) Unknown Male Problem [facility] ([facility]) Unknown Unknown Problem [facility] Encounters Encounter Providers Location Date Indications Data Source(s ) Outpatient Attender: [place] [facility] 02:15:00 PM EST [facility] ([facility] Outpatient Attender: MELANY PAUL RPA 12/21 12:46:09 PM EDT - 12/21/2020 02:34:56 PM EDT [facility] ([facility] ) Outpatient Attender: Otilio [place] [facility] 11:15:00 AM EDT [facility] ([facility] Outpatient Attender: Otilio GREER [place] [facility] 07/2020 03:45:00 PM EDT MED[facility] ([facility] Outpatient Attender: Gonzalo Pimentel MD [facility] Philip antoine 08/14/2020 08:30:00 AM EDT - 08/14/2020 08:30:00 AM EDT [facility] ([facility]) Attender: Gonzalo Pimentel MD 08/14/2020 12:00:00 AM EDT [facility] ([facility]) Attender: Bharti Brewer 08/03/2020 12:00:00 AM EDT [facility] ([facility]) Extended Individual Psychotherapy - 45 min Attender: Bharti Brewer [facility] 08/02/2020 04:30:00 AM EDT - 08/02/2020 04:30:00 AM EDT [facility] ([facility]) Extended Individual Psychotherapy - 45 min Attender: Bharti Brewer [facility] 08/01/2020 01:00:00 AM EDT - 08/01/2020 01:00:00 AM EDT [facility] ([facility]) Attender: Bharti Brewer 08/01/2020 12:00:00 AM EDT [facility] ([facility]) Extended Individual Psychotherapy - 45 min Attender: Bharti Brewer [facility] 07/06/2020 12:59:00 PM EDT - 07/06/2020 12:59:00 PM EDT [facility] ([facility]) Attender: Bharti Brewer 07/06/2020 12:00:00 AM EDT [facility] ([facility]) Outpatient Attender: Gonzalo Pimentel MD [facility] Philip antoine 06/19/2020 08:30:00 AM EST - 06/19/2020 08:30:00 AM EST [facility] ([facility]) Attender: Gonzalo Pimentel MD 06/19/2020 12:00:00 AM EST [facility] ([facility]) Attender: Bharti Brewer 05/24/2020 12:00:00 AM EST [facility] ([facility]) Outpatient Attender: Gonzalo Pimentel MD [facility] elina 05/22/2020 08:00:00 AM EST - 05/22/2020 08:00:00 AM EST [facility] ([facility]) [id number]"Psychotherapy Attender: Bharti Brewer [facility] 05/22/2020 03:00:00 AM EST - 05/22/2020 03:00:00 AM EST [facility] ([facility]) Attender: Gonzalo Pimentel MD 05/22/2020 12:00:00 AM EST [facility] ([facility]) Attender: Bharti Brewer 05/18/2020 12:00:00 AM EST [facility] ([facility]) [id number]"Psychotherapy Attender: Bharti Brewer [facility] 05/16/2020 03:00:00 AM EST - 05/16/2020 03:00:00 AM EST [facility] ([facility]) Extended Individual Psychotherapy - 45 min Attender: Bharti Brewer [facility] 05/01/2020 01:00:00 AM EST - 05/01/2020 01:00:00 AM EST [facility] ([facility]) Attender: Bharti Brewer 05/01/2020 12:00:00 AM EST [facility] ([facility]) Attender: Bharti Brewer 04/18/2020 12:00:00 AM EST [facility] ([facility]) [id number]"Psychotherapy Attender: Bharti Brewer [facility] 04/17/2020 01:00:00 AM EST - 04/17/2020 01:00:00 AM EST [facility] ([facility]) [id number]"Psychotherapy Attender: Bharti Brewer [facility] 04/04/2020 05:00:00 AM EST - 04/04/2020 05:00:00 AM EST [facility] ([facility]) Attender: Bharti Brewer 04/04/2020 12:00:00 AM EST [facility] ([facility]) Outpatient Attender: NANCY BOOFRANCIE [facility] J ail 03/02/2020 02:00:00 AM EST - 03/02/2020 02:00:00 AM EST [facility] ([facility]) Attender: NANCY BOOFRANCIE 03/02/2020 12:00: 00 AM EST [facility] ([facility]) [id number]"Psychotherapy Attender: Bharti Brewer [facility] 02/29/2020 05:00:00 AM EST - 02/29/2020 05:00:00 AM EST [facility] ([facility]) Attender: Bharti Brewer 02/29/2020 12:00:00 AM EST [facility] ([facility]) Attender: Bharti Brewer 02/16/2020 12:00:00 AM EDT [facility] ([facility]) Outpatient Attender: Deborah garzon 02/15/2020 11:00:00 AM EDT [facility] Extended Individual Psychotherapy - 45 min Attender: Bharti Brewer [facility] 02/15/2020 05:00:00 AM EDT - 02/15/2020 05:00:00 AM EDT [facility] ([facility]) Attender: Bharti Brewer 02/02/2020 12:00:00 AM EDT [facility] ([facility]) Extended Individual Psychotherapy - 45 min Attender: Bharti Brewer [facility] 02/01/2020 05:00:00 AM EDT - 02/01/2020 05:00:00 AM EDT [facility] ([facility]) Outpatient Attender: NANCY BOOFRANCIE [facility] ail 01/20/2020 02:00:00 AM EDT - 01/20/2020 02:00:00 AM EDT [facility] ([facility]) Attender: NANCY RUSHING FPFRANCIE 01/20/2020 12:00: 00 AM EDT [facility] ([facility]) Attender: Bharti Osman 01/20/2020 12:00:00 AM EDT [facility] ([facility]) Extended Individual Psychotherapy - 45 min Attender: Bharti Brewer [facility] 01/18/2020 05:00:00 AM EDT - 01/18/2020 05:00:00 AM EDT [facility] ([facility]) Functional Status Medications Medication Brand Name Start Date Product Form Dose Route Admi nistrative Instructions Pharmacy Instructions Status Indications Reaction Description Data Source(s) Acetic Acid 20 MG/ML / Hydrocortisone 10 MG/ML Otic So lution Hydrocortisone- Acetic Acid 03/07/2021 12:00:00 AM EST AURICULAR active MED[facility] ([facility] Fluconazole 150 MG Oral Tablet [Diflucan] Diflucan 03/07/2021 1 2:00:00 AM EST ORAL active [facility] ([facility] Azithromycin 250 MG Oral Tablet Azithromycin 03/07/2021 12:00:[address] ORAL active [facility] ([facility] 500 mg 12/21/2020 12:00:00 AM EDT tablet 3 TAKE ONE TABLET BY MOUTH EVERY DAY FOR 3 DAYS TAKE ONE TABLET BY MOUTH EVERY DAY FOR 3 DAYS SOLD: 12/21/2020 [facility] 6 mg 12/21/2020 12:00:00 AM EDT tablet 7 TAKE ONE TABLET BY MOUTH EVERY DAY FOR 7 DAYS TAKE ONE TABLET BY MOUTH EVERY DAY FOR 7 DAYS SOLD: 12/21/2020 [facility] benzonatate 100 MG Oral Capsule BENZONATATE 12/21/2020 12:00:00 AM EDT capsule 60 TAKE TWO CAPSULES BY MOUTH THREE TIMES A DAY FOR 10 DAYS TAKE TWO CAPSULES BY MOUTH THREE TIMES A DAY FOR 10 DAYS SOLD: 12/21/2020 [facility] Azithromycin 500 MG Oral Tablet Azithromycin 12/14/2020 12:00:00 AM E DT ORAL completed [facility] ([facility] 500 mg 12/14/2020 12:00:00 AM EDT tablet 2 TAKE 2 TABLETS BY MOUTH TODAY TAKE 2 TABLETS BY MOUTH TODAY SOLD: 12/14/2020 [facility] 250 mg 12/07/2020 12:00:00 AM EDT tablet 10 TAKE ONE TABLET BY MOUTH TWO TIMES A DAY FOR 5 DAYS TAKE ONE TABLET BY MOUTH TWO TIMES A DAY FOR 5 DAYS SO LD: 12/07/2020 [facility] 2 % 12/07/2020 12:00:00 AM EDT ointment 22 APPLY TOPICALLY TWO TIMES A DAY FOR 10 DAYS TO ARMS APPLY TOPICALLY TWO TIMES A DAY FOR 10 DAYS TO ARMS SO LD: 01/30/2021 [facility] 150 mg 12/07/2020 12:00:00 AM EDT tablet 2 TAKE ONE TABLET BY MOUTH TODAY, FOLLOWED BY 1 TABLET IN ONE WEEK TAKE ONE TABLET BY MOUTH TODAY, FOLLOWED BY 1 TABLET IN ONE WEEK SOLD: 12/07/2020 [facility] 2 % 12/07/2020 12:00:00 AM EDT ointment 22 APPLY TOPICALLY TWO TIMES A DAY FOR 10 DAYS TO ARMS APPLY TOPICALLY TWO TIMES A DAY FOR 10 DAYS TO ARMS SO LD: 12/07/2020 [facility] Ciprofloxacin 250 MG Oral Tablet Ciprofloxacin HCL 12/07/2020 12:00 :00 AM EDT ORAL completed [facility] ([facility] Fluconazole 150 MG Oral Tablet [Diflucan] Diflucan 12/07/2020 1 2:00:00 AM EDT ORAL completed [facility] ([facility] 2 % 10/25/2020 12:00:00 AM EDT ointment 22 APPLY TO ARMS TWO TIMES A DAY FOR 10 DAYS APPLY TO ARMS TWO TIMES A DAY FOR 10 DAYS SOLD: 10/25/2020 [facility] Cephalexin 500 MG Oral Capsule CEPHALEXIN 08/21/2020 12:00:00 AM EDT capsule 30 TAKE ONE CAPSULE BY MOUTH THREE TIMES A DAY TAKE ONE C APSULE BY MOUTH THREE TIMES A DAY SOLD: 08/22/2020 [facility] Cephalexin 500 MG Oral Capsule Cephalexin 08/21/2020 12:00:00 AM EDT ORAL completed [facility] ([facility] 2 % 08/21/2020 12:00:00 AM EDT ointment 22 APPLY TOPICALLY TWO TIMES A DAY FOR 10 DAYS TO ARMS APPLY TOPICALLY TWO TIMES A DAY FOR 10 DAYS TO ARMS SO LD: 08/22/2020 [facility] 500 mg 05/29/2020 12:00:00 AM EST capsule 21 TAKE ONE CAPSULE BY MOUTH THREE TIMES A DAY TAKE ONE CAPSULE BY MOUTH THREE TIMES A DAY SOLD: 05/31/2020 [facility] Metronidazole 500 MG Oral Tablet METRONIDAZOLE 05/26/2020 12:0 0:00 AM EST tablet 14 TAKE ONE TABLET BY MOUTH TWICE A DAY FOR 7 DAYS TAKE ONE TABLET BY MOUTH TWICE A DAY FOR 7 DAYS SOLD: 05/31/2020 [facility] lamotrigine 100 MG Oral Tablet [Lamictal] Lamictal 05/22/2020 1 2:00:00 AM EST 100 mg by mouth completed <td ID="Me dicationRxNorm_1">672698</td><td ID="MedicationMedication_1">Lamictal</td><td ID="MedicationRoute_1">by mouth</td><td ID="MedicationRouteConcept_1">C52950</td><td ID="MedicationStartDate_1">05/22/2020</td><td ID="MedicationStopDate_1">09/19/2020</td><td ID="MedicationDosageFrequency_1">once a day</td><td ID="MedicationDuration_1">30</td><td ID="MedicationFormulaStrength_1">100 mg</td><td ID="MedicationDosageForm_1">tablet</td><td ID="MedicationDosageFormCode_1"></td><td ID="MedicationDosageDescription_1"></td><td ID="MedicationMedicationId_1">[id number]</td><td ID="MedicationAccount_1">[id number]</td><td ID="MedicationNpid_1">[id number]</td><td ID="MedicationAuthorFirstName_1">Gonzalo</td><td ID="MedicationAuthorLastName_1">Pimentel</td><td ID="MedicationTaxonomyCode_1">[id number]</td><td ID="MedicationTaxonomyDesc_1">Psychiatry</td><td ID="MedicationPhoneNumber_1"> [phone]</td> [facility] ([facility]) 100 mg 05/22/2020 12:00:00 AM EST tablet 30 TAKE ONE TABLET BY MOUTH EVERY DAY TAKE ONE TABLET BY MOUTH EVERY DAY SOLD: 05/31/2020 [facility] lamotrigine 100 MG Oral Tablet lamotrigine 03/02/2020 12:00:00 AM EST 100 mg by mouth completed <td ID="Medica tionRxNorm_1">556278</td><td ID="MedicationMedication_1">lamotrigine</td><td ID="MedicationRoute_1">by mouth</td><td ID="MedicationRouteConcept_1">L92695</td><td ID="MedicationStartDate_1">03/02/2020</td><td ID="MedicationStopDate_1">05/01/2020</td><td ID="MedicationDosageFrequency_1">once a day</td><td ID="MedicationDuration_1">30</td><td ID="MedicationFormulaStrength_1">100 mg</td><td ID="MedicationDosageForm_1">tablet</td><td ID="MedicationDosageFormCode_1"></td><td ID="MedicationDosageDescription_1"></td><td ID="MedicationMedicationId_1">[id number]</td><td ID="MedicationAccount_1">[id number]</td><td ID="MedicationNpid_1">[id number]</td><td ID="MedicationAuthorFirstName_1">Nancy</td><td ID="MedicationAuthorLastName_1">Egorho</td><td ID="MedicationTaxonomyCode_1">[id number]</td><td ID="MedicationTaxonomyDesc_1">Nurse Practitioner</td><td ID="MedicationPhoneNumber_1">[phone]</td> [facility] ([facility] 100 mg 03/02/2020 12:00:00 AM EST tablet 30 TAKE ONE TABLET BY MOUTH EVERY DAY TAKE ONE TABLET BY MOUTH EVERY DAY SOLD: 04/10/2020 [facility] 100 mg 03/02/2020 12:00:00 AM EST tablet 30 TAKE ONE TABLET BY MOUTH EVERY DAY TAKE ONE TABLET BY MOUTH EVERY DAY SOLD: 03/02/2020 [facility] lamotrigine 100 MG Oral Tablet lamotrigine 03/02/2020 12:00:00 AM EST 100 mg by mouth completed <td ID="Medica tionRxNorm_3">728373</td><td ID="MedicationMedication_3">lamotrigine</td><td ID="MedicationRoute_3">by mouth</td><td ID="MedicationRouteConcept_3">Z67621</td><td ID="MedicationStartDate_3">03/02/2020</td><td ID="MedicationStopDate_3">05/01/2020</td><td ID="MedicationDosageFrequency_3">once a day</td><td ID="MedicationDuration_3">30</td><td ID="MedicationFormulaStrength_3">100 mg</td><td ID="MedicationDosageForm_3">tablet</td><td ID="MedicationDosageFormCode_3"></td><td ID="MedicationDosageDescription_3"></td><td ID="MedicationMedicationId_3">[id number]</td><td ID="MedicationAccount_3">[id number]</td><td ID="MedicationNpid_3">[id number]</td><td ID="MedicationAuthorFirstName_3">Nancy</td><td ID="MedicationAuthorLastName_3">Egorho</td><td ID="MedicationTaxonomyCode_3">[id number]</td><td ID="MedicationTaxonomyDesc_3">Nurse Practitioner</td><td ID="MedicationPhoneNumber_3">[phone]</td> [facility] 100 mg 03/02/2020 12:00:00 AM EST tablet 30 TAKE ONE TABLET BY MOUTH EVERY DAY TAKE ONE TABLET BY MOUTH EVERY DAY SOLD: 03/02/2020 [facility] Sertraline 100 MG Oral Tablet sertraline 03/02/2020 12:00:00 AM EST 100 mg by mouth completed <td ID="Medica tionRxNorm_4">554263</td><td ID="MedicationMedication_4">sertraline</td><td ID="MedicationRoute_4">by mouth</td><td ID="MedicationRouteConcept_4">D27402</td><td ID="MedicationStartDate_4">03/02/2020</td><td ID="MedicationStopDate_4">05/01/2020</td><td ID="MedicationDosageFrequency_4">once a day</td><td ID="MedicationDuration_4">30</td><td ID="MedicationFormulaStrength_4">100 mg</td><td ID="MedicationDosageForm_4">tablet</td><td ID="MedicationDosageFormCode_4"></td><td ID="MedicationDosageDescription_4"></td><td ID="MedicationMedicationId_4">[id number]</td><td ID="MedicationAccount_4">[id number]</td><td ID="MedicationNpid_4">[id number]</td><td ID="MedicationAuthorFirstName_4">Nancy</td><td ID="MedicationAuthorLastName_4">Egorho</td><td ID="MedicationTaxonomyCode_4">[id number]</td><td ID="MedicationTaxonomyDesc_4">Nurse Practitioner</td><td ID="MedicationPhoneNumber_4">[phone]</td> [facility] Sertraline 100 MG Oral Tablet sertraline 03/02/2020 12:00:00 AM EST 100 mg by mouth completed <td ID="Medica tionRxNorm_2">021783</td><td ID="MedicationMedication_2">sertraline</td><td ID="MedicationRoute_2">by mouth</td><td ID="MedicationRouteConcept_2">D39421</td><td ID="MedicationStartDate_2">03/02/2020</td><td ID="MedicationStopDate_2">05/01/2020</td><td ID="MedicationDosageFrequency_2">once a day</td><td ID="MedicationDuration_2">30</td><td ID="MedicationFormulaStrength_2">100 mg</td><td ID="MedicationDosageForm_2">tablet</td><td ID="MedicationDosageFormCode_2"></td><td ID="MedicationDosageDescription_2"></td><td ID="MedicationMedicationId_2">[id number]</td><td ID="MedicationAccount_2">[id number]</td><td ID="MedicationNpid_2">[id number]</td><td ID="MedicationAuthorFirstName_2">Nancy</td><td ID="MedicationAuthorLastName_2">Egorho</td><td ID="MedicationTaxonomyCode_2">[id number]</td><td ID="MedicationTaxonomyDesc_2">Nurse Practitioner</td><td ID="MedicationPhoneNumber_2">[phone]</td> [facility] ([facility]) 100 mg 03/02/2020 12:00:00 AM EST tablet 30 TAKE ONE TABLET BY MOUTH EVERY DAY TAKE ONE TABLET BY MOUTH EVERY DAY SOLD: 04/10/2020 [facility] 25 mg 01/21/2020 12:00:00 AM [...] AM EDT 50 mg by mouth completed <td ID="Medica tionRxNorm_1">364863</td><td ID="MedicationMedication_1">sertraline</td><td ID="MedicationRoute_1">by mouth</td><td ID="MedicationRouteConcept_1">B41221</td><td ID="MedicationStartDate_1">01/20/2020</td><td ID="MedicationStopDate_1">03/02/2020</td><td ID="MedicationDosageFrequency_1">once a day</td><td ID="MedicationDuration_1">45</td><td ID="MedicationFormulaStrength_1">50 mg</td><td ID="MedicationDosageForm_1">tablet</td><td ID="MedicationDosageFormCode_1"></td><td ID="MedicationDosageDescription_1"></td><td ID="MedicationMedicationId_1">[id number]</td><td ID="MedicationAccount_1">[id number]</td><td ID="MedicationNpid_1">[id number]</td><td ID="MedicationAuthorFirstName_1">Nancy</td><td ID="MedicationAuthorLastName_1">Egorho</td><td ID="MedicationTaxonomyCode_1">[id number]</td><td ID="MedicationTaxonomyDesc_1">Nurse Practitioner</td><td ID="MedicationPhoneNumber_1">[phone]</td> [facility] lamotrigine 25 MG Oral Tablet lamotrigine 01/20/2020 12:00:00 AM EDT 25 mg by mouth completed <td ID="Medica tionRxNorm_2">249991</td><td ID="MedicationMedication_2">lamotrigine</td><td ID="MedicationRoute_2">by mouth</td><td ID="MedicationRouteConcept_2">E14106</td><td ID="MedicationStartDate_2">01/20/2020</td><td ID="MedicationStopDate_2">03/02/2020</td><td ID="MedicationDosageFrequency_2">twice a day</td><td ID="MedicationDuration_2">30</td><td ID="MedicationFormulaStrength_2">25 mg</td><td ID="MedicationDosageForm_2">tablet</td><td ID="MedicationDosageFormCode_2"></td><td ID="MedicationDosageDescription_2"></td><td ID="MedicationMedicationId_2">[id number]</td><td ID="MedicationAccount_2">[id number]</td><td ID="MedicationNpid_2">[id number]</td><td ID="MedicationAuthorFirstName_2">Nancy</td><td ID="MedicationAuthorLastName_2">Egorho</td><td ID="MedicationTaxonomyCode_2">[id number]</td><td ID="MedicationTaxonomyDesc_2">Nurse Practitioner</td><td ID="MedicationPhoneNumber_2">[phone]</td> [facility] ([facility]) buspirone hydrochloride 10 MG Oral Tablet buspirone 2019 12:00:00 AM EDT 10 mg by mouth completed <td ID="Medic ationRxNorm_2">880881</td><td ID="MedicationMedication_2">buspirone</td><td ID="MedicationRoute_2">by mouth</td><td ID="MedicationRouteConcept_2">F49502</td><td ID="MedicationStartDate_2">12/16/2019</td><td ID="MedicationStopDate_2">01/15/2020</td><td ID="MedicationDosageFrequency_2">twice a day</td><td ID="MedicationDuration_2">30</td><td ID="MedicationFormulaStrength_2">10 mg</td><td ID="MedicationDosageForm_2">tablet</td><td ID="MedicationDosageFormCode_2"></td><td ID="MedicationDosageDescription_2"></td><td ID="MedicationMedicationId_2">[id number]</td><td ID="MedicationAccount_2">[id number]</td><td ID="MedicationNpid_2">[id number]</td><td ID="MedicationAuthorFirstName_2">Nancy</td><td ID="MedicationAuthorLastName_2">Egorho</td><td ID="MedicationTaxonomyCode_2">[id number]</td><td ID="MedicationTaxonomyDesc_2">Nurse Practitioner</td><td ID="MedicationPhoneNumber_2">[phone]</td> [facility] ([facility]) Insurance Providers Payer name Policy type / Coverage type Policy ID Covered green party ID Covered green party's relationship to [place] Policy [place] Plan Information [facility] Workers Compensation [id number] Self [employer] - [place] Blue Cross/B lue Shield [id number] Self [id number] [place] [employer] [id number] Self [id number] SELF PAY ONLY [id number] SP [id number] MEDICAID [id number] SP [id number] [employer] COMMUNITY PLAN MCDO [id number] SP [id number] MEDICAID P [id number] S [id number] [facility]CA[facility]) P [id number] S [id number] [facility]/P [id number] 18 [id number] [employer]HC COMMUNITY PLAN MCDO [id number] SP [id number] [facility](MCAID) O [id number] S [id number] UN COMMUNITY PLAN MCDO [id number] SP [id number] [facility](MCAID) O [id number] S [id number] SELF PAY ONLY [id number] SP [id number] [employer]BS [place] PPO 302/307 [id number] SP [id number] [employer] BCBS Health Maintenance Organization (HMO) [id number] Self [id number] [employer] [place] PPO 302/307 [id number] SP [id number] [employer]BS Health Maintenance Organization (HMO) [id number] Self [id number] Medicaid [place] Medicaid [id number] Self [id number] [employer] COMMUNITY PLAN MCDO [id number] SP [id number] [employer] COMMUNITY PLAN MCDHMO [id number] SP [id number] UNHC COMMUNITY PLAN MCDO [id number] SP [id number] BCBS [place] HMO [id number] SP [id number] BCBS [facility] HMO [id number] SP [id number] [employer] B [id number] S [id number] SELF PAY ONLY [id number] Problems, Conditions, and Diagnoses Code Display Name Description Problem Type Effective Dates Data Source(s) F60.3 Borderline personality disorder Borderline Personality Disorder Condition 08/14/2020 12:00:00 AM EDT [facility] ([facility]) F42.4 Excoriation (skin-picking) disorder Excoriation (Skin-Picking) Disorder Condition 08/14/2020 12:00:00 AM EDT [facility] ([facility]) F43.10 Post-traumatic stress disorder, unspecif ied Posttraumatic Stress Disorder (includes Posttraumatic Stress Disorder for Children 6 Years and Younger) Condition 08/14/2020 12:00:00 AM EDT [facility] ([facility]) F31.81 Bipolar II disorder Bipolar II Disorder Condition 0 08/14/2020 12:00:00 AM EDT [facility] ([facility]) F60.3 Borderline personality disorder Borderline Personality Disorder Condition 06/19/2020 12:00:00 AM EST [facility] ([facility]) F42.4 Excoriation (skin-picking) disorder Excoriation (Skin-Picking) Disorder Condition 06/19/2020 12:00:00 AM EST [facility] ([facility]) F43.10 Post-traumatic stress disorder, unspecif ied Posttraumatic Stress Disorder (includes Posttraumatic Stress Disorder for Children 6 Years and Younger) Condition 06/19/2020 12:00:00 AM EST [facility] ([facility]) F41.9 Anxiety disorder, unspecified Unspecified Anxiety Diso rder Condition 06/19/2020 12:00:00 AM EST [facility] ([facility]) F10.19 Alcohol abuse with unspecified alcohol-i nduced disorder Alcohol abuse with unspecified alcohol-induced disorder Condition 05/18/2020 12:00:0 0 AM EST [facility] ([facility]) F31.81 Bipolar II disorder Bipolar II Disorder Condition 0 05/18/2020 12:00:00 AM EST [facility] ([facility]) F41.9 Anxiety disorder, unspecified Unspecified Anxiety Diso rder Condition 05/18/2020 12:00:00 AM EST [facility] ([facility]) Surgeries/Procedures Procedure Description Date Indications Data Source(s) OFFICE OUTPATIENT VISIT 15 MINUTES 03/07/2021 12:00:00 AM EST [facility] ([facility] OFFICE OUTPATIENT VISIT 15 MINUTES 12/07/2020 12:00:00 AM EDT [facility] ([facility] OFFICE OUTPATIENT VISIT 15 MINUTES 08/21/2020 12:00:00 AM EDT [facility] ([facility] MHC Telemed E/M Lvl 2--Est pt 08/14/2020 12:00:00 AM EDT - 08/14/2020 12:00:00 AM EDT [facility] ([facility]) MHC Telemed E/M Lvl 2--Est pt 08/14/2020 12:00:00 AM E DT [facility] ([facility]) Extended Individual Psychotherapy - 45 min 08/03/2020 12:00:00 AM EDT - 08/03/2020 12:00:00 AM EDT [facility] ([facility]) Extended Individual Psychotherapy - 45 min 12:00:00 AM EDT [facility] ([facility]) Extended Individual Psychotherapy - 45 min 08/01/2020 12:00:00 AM EDT - 08/01/2020 12:00:00 AM EDT [facility] ([facility]) Extended Individual Psychotherapy - 45 min 12:00:00 AM EDT [facility] ([facility]) Extended Individual Psychotherapy - 45 min 07/06/2020 12:00:00 AM EDT - 07/06/2020 12:00:00 AM EDT [facility] ([facility]) Extended Individual Psychotherapy - 45 min 12:00:00 AM EDT [facility] ([facility]) MHC Telemed E/M Lvl 2--Est pt 06/19/2020 12:00:00 AM EST - 06/19/2020 12:00:00 AM EST [facility] ([facility]) MHC Telemed E/M Lvl 2--Est pt 06/19/2020 12:00:[address] [facility] ([facility]) [id number]"Psychotherapy 12:00:00 AM EST - 05/24/2020 12:00:00 AM EST [facility] ([facility]) [id number]"Psychotherapy 05/22/2020 12:00:00 AM EST [facility] ([facility]) MHC Telemed E/M Lvl 3--Est pt 05/22/2020 12:00:00 AM EST - 05/22/2020 12:00:00 AM EST [facility] ([facility]) MHC Telemed E/M Lvl 3--Est pt 05/22/2020 12:00:[address] [facility] ([facility]) [id number]"Psychotherapy 12:00:00 AM EST - 05/18/2020 12:00:00 AM EST [facility] ([facility]) [id number]"Psychotherapy 05/16/2020 12:00:00 AM EST [facility] ([facility]) Extended Individual Psychotherapy - 45 min 05/01/2020 12:00:00 AM EST - 05/01/2020 12:00:00 AM EST [facility] ([facility]) Extended Individual Psychotherapy - 45 min 1 12:00:00 AM EST [facility] ([facility]) [id number]"Psychotherapy 0 12:00:00 AM EST - 04/18/2020 12:00:00 AM EST [facility] ([facility]) [id number]"Psychotherapy 04/17/2020 12:00:00 AM EST [facility] ([facility]) [id number]"Psychotherapy 0 12:00:00 AM EST - 04/04/2020 12:00:00 AM EST [facility] ([facility]) [id number]"Psychotherapy 04/04/2020 12:00:00 AM EST [facility] ([facility]) MHC Telemed E/M Lvl 3--Est pt 03/02/2020 12:00:00 AM EST - 03/02/2020 12:00:00 AM EST [facility] ([facility]) MHC Telemed E/M Lvl 3--Est pt 03/02/2020 12:00:[address] [facility] ([facility]) [id number]"Psychotherapy 0 12:00:00 AM EST - 02/29/2020 12:00:00 AM EST [facility] ([facility]) [id number]"Psychotherapy 02/29/2020 12:00:00 AM EST [facility] ([facility]) Extended Individual Psychotherapy - 45 min 02/16/2020 12:00:00 AM EDT - 02/16/2020 12:00:00 AM EDT [facility] ([facility]) Extended Individual Psychotherapy - 45 min 0 12:00:00 AM EDT [facility] ([facility]) Extended Individual Psychotherapy - 45 min 02/02/2020 12:00:00 AM EDT - 02/02/2020 12:00:00 AM EDT [facility] ([facility]) Extended Individual Psychotherapy - 45 min 0 12:00:00 AM EDT [facility] ([facility]) OFFICE OUTPATIENT VISIT 15 MINUTES 01/19 12:00:00 AM EDT - 01/20/2020 12:00:00 AM EDT [facility] ([facility]) OFFICE OUTPATIENT VISIT 15 MINUTES 01/20/2020 12:00:00 AM EDT [facility] ([facility]) Extended Individual Psychotherapy - 45 min 01/20/2020 12:00:00 AM EDT - 01/20/2020 12:00:00 AM EDT [facility] ([facility]) Extended Individual Psychotherapy - 45 min 0 12:00:00 AM EDT [facility] ([facility]) Results ID Date Data Source [id number] 12/21/2020 01:00:00 PM EDT [facility] Name Value Range Interpretation Code Description Data Tati rce(s) Supporting Document(s) SARS-CoV-2 RNA Resp Ql EARL+probe DETECTED [facility] This lab was ordered by GEOFFREY olmos and reported by GEOFFREY [place]. ID Date Data Source [id number] 12/13/2020 09:05:00 AM EDT [facility] ([facility] Name Value Range Interpretation Code Description Data Tati rce(s) Supporting Document(s) Chlamydia trachomatis rRNA [Presence] in Cervix by Probe and target amplification method Laboratory test result Abnormal (applie s to non-numeric results) [facility] ([facility] ) Source of Specimen: urine Neisseria gonorrhoeae rRNA [Presence] in Unspecified specimen by Probe and target amplification method Laboratory test result [facility] ([facility] Source of Specimen: urine ID Date Data Source [id number] 12/07/2020 11:23:00 AM EDT [facility] ([facility] Name Value Range Interpretation Code Description Data Tati rce(s) Supporting Document(s) Urine Culture, Routine Laboratory test result Ab normal (applies to non-numeric results) [facility] ([facility] ) SRC:URINE Bacteria identified in Urine by Culture Laboratory test result Abnormal (applies to non-numeric results) [facility] ([facility] SRC:URINE Antimicrobial Susceptibility Laboratory test result [facility] ([facility] SRC:URINE ID Date Data Source [id number] 12/07/2020 11:22:00 AM EDT [facility] ([facility] Name Value Range Interpretation Code Description Data Tati rce(s) Supporting Document(s) Color Urine Laboratory test result M [facility] ([facility] Appearance of Urine Laboratory test result [facility] ([facility] Specific [place] 1.025 1.00-1.03 [facility] ([facility] Glucose Urine Laboratory test result [facility] ([facility] PH Urine 7.0 5.0-8.0 [facility] ([facility] Ketones Laboratory test result [facility] ([facility] Bilirubin.total [Presence] in Urine by Test strip Laboratory test res ult [facility] ([facility] Blood Urine Laboratory test result Above high normal [facility] ([facility] Protein Urine Laboratory test result [facility] ([facility] Nitrite Laboratory test result Above high normal [facility] ([facility] Urobilinogen 0.2 EU/dl 0.2-1.0 [facility] Leukocytes Laboratory test result Above high normal [facility] ([facility] ID Date Data Source [id number] 08/21/2020 04:37:00 PM EDT [facility] ([facility] Name Value Range Interpretation Code Description Data Tati rce(s) Supporting Document(s) Bacteria identified in Unspecified specimen by Aerobe culture Laboratory test result [facility] Preliminary report Bacteria identified in Unspecified specimen by Culture Laborator y test result [facility] ([facility] ) No growth in 36 - 48 hours. ID Date Data Source [id number] 05/25/2020 08:19:00 PM EST [facility] ([facility] Name Value Range Interpretation Code Description Data Tati rce(s) Supporting Document(s) Reflex Urine Culture Laboratory test result Norm al (applies to non-numeric results) [facility] ([facility] ) <content>FULL REPORT IN LAB NOTES ([facility] a nd [facility]).</content>
<content></content>
<content>ORGANISM 1: ESCHERICHIA COLI</content>
<content></content>
<content>COLONY COUNT > 100,000</content>
<content></content>
<content></content>
<content>O RGANISM 1: ESCHERICHIA COLI</content>
<content></content>
<content> ESCHERICHIA COLI: REACTION</content>
<content>TRIMETHOPRIM/SULFAMETHOXAZOLE IV 160mg TMP & 800mg SMXq6h <=20 S</content>
<content> TRIMETHOPRIM/SULFAMETHOXAZOLE PO Bactrim DS Bid <=20 S</content>
<content>AMPICILLIN IV 500mg q6h >=32 R</content>
<content>AMPICILLIN PO 500mg q6h fasting >=32 R</content>
<content>GENTAMICIN IV 80mg q8h <=1 S</content>
<content>NITROFURANTOIN PO 100mg BID <=16 S</content>
<content>CEFAZOLIN IV 1gm q8h <=4 S</content>
<content>LEVOFLOXACIN IV 500mg qd <=0.12 S</content>
<content>LEVOFLOXACIN PO 250mg qd <=0.12 S</content>
<content>LEVOFLOXACIN PO 500mg qd <=0.12 S</content>
<content>TOBRAMYCIN IV 80mg q8h <=1 S</content>
<content> CEFTRIAXONE IV 1gm q24h <=1 S</content>
<content>CEFTAZIDIME IV 1gm q8h <=1 S</content>
<content>AMPICILLIN/SULBACTAM IV 1.5g q6h >=32 R</content>
<content>PIPERACILLIN/TAZOBACTAM IV 2.25 gm q6h 8 S</content>
<content>AZTREONAM IV 1gm q8h <=1 S</content>
<content>ERTAPENEM IV 1gm qd <=0.5 S</content>
<content> MEROPENEM IV 1 gm q8h <=0.25 S</content>
<content>MEROPENEM IV 500 mg q8h <=0.25 S</content>
<content>TIGECYCLINE IV 50mg q12h <=0.5 S</content>
<content>CEFEPIME IV 1 gm q12h <=1 S</content>
<content>CEFEPIME IV 2 gm q12h <=1 S</content>
<content>EXTD BRD SPCTRM BETA LACTAMASE IV NEGATIVE FOR ESBL</content>
<content></content> ID Date Data Source [id number] 05/25/2020 08:19:00 PM EST [facility] ([facility] Name Value Range Interpretation Code Description Data Tati rce(s) Supporting Document(s) Appearance, Urine RFX Laboratory test result Above high no rmal [facility] ([facility] Color, Urine RFX Laboratory test result Normal ( applies to non-numeric results) [facility] ([facility] ) PH,Urine RFX 6.0 units 5.0-9.0 Normal (applies to non-numeric res ults) [facility] ([facility] Specific [place] Ur Auto RFX 1.021 1.002-1.035 Nor mal (applies to non-numeric results) [facility] ([facility] ) Protein, Urine Auto RFX Laboratory test result N ormal (applies to non-numeric results) [facility] ([facility] ) Glucose, Urine (Ua) Auto RFX Laboratory test result Normal (applies to non- numeric results) [facility] ([facility] ) Ketone, Urine Auto RFX Laboratory test result Above high n ormal [facility] ([facility] Urobilinogen, Urine Auto RFX 0.2 mg/dL 0.0-2.0 Nor mal (applies to non-numeric results) [facility] ([facility] ) Bilirubin, Urine Auto RFX Laboratory test result Normal (applies to non- numeric results) [facility] ([facility] ) Nitrite, Urine Auto RFX Laboratory test result N ormal (applies to non-numeric results) [facility] ([facility] ) Leukocyte Esterase Ur Auto RFX Laboratory test result Abov e high normal [facility] ([facility] Blood, Urine Blood RFX Laboratory test result Above high n ormal [facility] ([facility] RBC, Urine Auto RFX 11 /HPF 0-3 Above high normal [facility] ([facility] WBC, Urine Auto RFX 17 /HPF 0-3 Above high normal [facility] ([facility] Bacteria, Urine Auto RFX Laboratory test result Above high normal [facility] ([facility] Squam Epithelial Cell Ur Aurfx 12 /HPF 0-6 N ormal (applies to non-numeric results) [facility] ([facility] ) Mucus, Urine RFX Laboratory test result Normal ( applies to non-numeric results) [facility] ([facility] ) Hyaline Cast, Urine Auto RFX 0 /LPF 0-1 Normal (appl ies to non-numeric results) [facility] ([facility] ID Date Data Source [id number] 05/25/2020 06:44:00 PM EST [facility] ([facility] Name Value Range Interpretation Code Description Data Tati e(s) Supporting Document(s) Chlamydia Dna Amplification Laboratory test result Normal (applies to non- numeric results) [facility] ([facility] ) A negative test result does not exclude the possibility of infection because test results may be affected by improper specimen collection, technical error, specimen mix-up, concurrent antibiotic therapy, or the number of organisms in the specimen which may be below the sensitivity of the test. GC Dna Amplification Laboratory test result Norm al (applies to non-numeric results) [facility] ([facility] ) A negative test result does not exclude the possibility of infection because test results may be affected by improper specimen collection, technical error, specimen mix-up, concurrent antibiotic therapy, or the number of organisms in the specimen which may be below the sensitivity of the test. Laboratory test finding (navigational concept) Laboratory test r esult Normal (applies to non-numeric results) [facility] ([facility] A negative test result does not exclude the possibility of infection because test results may be affected by improper specimen collection, technical error, sample mix-up, or because the number of organisms in the sample is below the limit of detection of the test. ID Date Data Source [id number] 05/25/2020 06:44:00 PM EST [facility] ([facility] Name Value Range Interpretation Code Description Data [facility](s) Supporting Document(s) Wet Prep Laboratory test result Normal (applies to non-n umeric results) [facility] ([facility] MANY RBC FEW WBC MODERATE EPITHELIAL CELLS PRESENT MANY LONG RODS PRESENT FEW SHORT RODS PRESENT FEW CLUE CELLS PRESENT ID Date Data Source [id number] 05/25/2020 05:50:00 PM EST [facility] ([facility] Name Value Range Interpretation Code Description Data Tati e(s) Supporting Document(s) Glucose, Fasting 97 mg/dL 70-100 Normal (applies to non-numeric results) [facility] ([facility] Blood Urea Nitrogen 14 mg/dL 7-18 Normal (applies to non-nume dino results) [facility] ([facility] Creatinine For GFR 0.80 mg/dL 0.55-1.30 Normal (applies to non -numeric results) [facility] ([facility] Glomerular Filtration Rate Laboratory test result Normal (applies to non- numeric results) [facility] ([facility] ) <content>Units are mL/min/1.73 m2</content>
<content></content>
<content>Chronic Kidney Disease Staging per NKF:</content>
<content></content>
<content>Stage I & II GFR >=60 Normal to Mildly Decreased</content>
<content>Stage III GFR 30- 59 Moderately Decreased</content>
<content>Stage IV GFR 15-29 Severely Decreased</content>
<content>Stage V GFR <15 Very Little GFR Left</content>
<content>ESRD GFR <15 on [employer]</content>
<content></content> Sodium Level 140 meq/L 136-145 Normal (applies to non-numeric res ults) [facility] ([facility] Potassium Serum 4.1 meq/L 3.5-5.1 Normal (applies to non-numeric results) [facility] ([facility] Chloride Level 106 meq/L 98-107 Normal (applies to non-numeric r esults) [facility] ([facility] Carbon Dioxide Level 29 meq/L 21-32 Normal (applies to non-num trav results) [facility] ([facility] Anion Gap 5 meq/L 8-16 Below low normal [facility] ( [facility] Calcium Level 9.6 mg/dL 8.5-10.1 Normal (applies to non-numeric re sults) [facility] ([facility] ID Date Data Source [id number] 05/25/2020 05:50:00 PM EST [facility] ([facility] Name Value Range Interpretation Code Description Data Tati rce(s) Supporting Document(s) White Blood Count 9.6 10 4.0-10.0 Normal (applies to non-numeri c results) [facility] ([facility] Hemoglobin 13.2 g/dL 12.0-15.5 Normal (applies to non-numeric resul ts) [facility] ([facility] Red Blood Count 4.36 10 4.00-5.40 Normal (applies to non-numeric results) [facility] ([facility] Mean Corpuscular Volume 92.2 fl 80.0-96.0 Normal ( applies to non-numeric results) [facility] ([facility] ) Hematocrit 40.2 % 36.0-47.0 Normal (applies to non-numeric resul ts) [facility] ([facility] Mean Corpuscular Hemoglobin 30.3 pg 27.0-33.0 Norm al (applies to non-numeric results) [facility] ([facility] ) Mean Corpuscular HGB Conc 32.8 g/dL 32.0-36.5 Normal (applies to non-numeric results) [facility] ([facility] ) Red Cell Distribution Width 12.1 % 11.5-14.5 Norm al (applies to non-numeric results) [facility] ([facility] ) Platelet Count, Automated 293 10 150-450 Normal (applies to non-numeric results) [facility] ([facility] ) Neutrophils % 60.7 % 36.0-66.0 Normal (applies to non-numeric re sults) [facility] ([facility] Lymph % 30.3 % 24.0-44.0 Normal (applies to non-numeric resul ts) [facility] ([facility] [place] % 6.3 % 0.0-5.0 Above high normal [facility] ([facility] Eos % 1.7 % 0.0-3.0 Normal (applies to non-numeric resul ts) [facility] ([facility] Baso % 0.6 % 0.0-1.0 Normal (applies to non-numeric resul ts) [facility] ([facility] Immature Granulocyte % 0.4 % 0-3.0 Normal (applies to non-n umeric results) [facility] ([facility] Nucleated Red Blood Cell % 0.0 % 0-0 Normal (applies to n on-numeric results) [facility] ([facility] Lymph # 2.9 10 1.5-5.0 Normal (applies to non-numeric resul ts) [facility] ([facility] Neutrophils # 5.8 10 1.5-8.5 Normal (applies to non-numeric re sults) [facility] ([facility] [place] # 0.6 10 0.0-0.8 Normal (applies to non-numeric resul ts) [facility] ([facility] Eos # 0.2 10 0.0-0.5 Normal (applies to non-numeric resul ts) [facility] ([facility] Baso # 0.1 10 0.0-0.2 Normal (applies to non-numeric resul ts) [facility] ([facility] ID Date Data Source [id number] 05/25/2020 05:49:00 PM EST [facility] ([facility] Name Value Range Interpretation Code Description Data Tati e(s) Supporting Document(s) Laboratory test finding (navigational concept) Laboratory test r esult Normal (applies to non-numeric results) [facility] ([facility] <content>QUANTITATIVE RESULT QU ALITATIVE INTERPRETATION</content>
<content> </content>
<content><5.0 IU/L NEGATIVE</content>
<content>5.0 - 25.0 IU/L INDETERMINATE</content>
<content>>25.0 IU/L POSITIVE</content>
<content></content> ID Date Data Source [id number] 05/15/2020 12:20:00 PM EST [facility] ([facility] Name Value Range Interpretation Code Description Data Tati rce(s) Supporting Document(s) Laboratory test finding (navigational concept) Laboratory test result [facility] ([facility] Test: COVID-19 Nasal/Naspharynx Result: NOT DETECTED Reference Units: Not detected Note: Please consider re-collection of a new specimen, if clinically indicated. Note: The COVID-19 assay is under Emergency Use Authorization(EUA) by the U.S. Food and Drug Administration. [facility] is designated as a high complexity laboratory by the Clinical Laboratory Improvement Amendments of 1988(CLIA) and is qualified to perform this test. ASSAY INFORMATION: Real Time RT-PCR ID Date Data Source [id number] 05/15/2020 12:00:00 AM EST [facility] Name Value Range Interpretation Code Description Data Tati rce(s) Supporting Document(s) SARS-CoV-2 (COVID-19) RNA [Presence] in Respiratory specimen by E[facility]L with probe detection Not Detected [facility] This lab was ordered by [facility] [facility] and reported by [employer] ID Date Data Source [id number] 04/24/2020 10:20:00 AM EST [facility] ([facility] Name Value Range Interpretation Code Description Data Tati rce(s) Supporting Document(s) Laboratory test finding (navigational concept) Laboratory test result [facility] ([facility] Test: COVID-19 Nasal/Naspharynx Result: NOT DETECTED Reference Units: Not detected Note: Please consider re-collection of a new specimen, if clinically indicated. Note: The COVID-19 assay is under Emergency Use Authorization(EUA) by the U.S. Food and Drug Administration. [facility] is designated as a high complexity laboratory by the Clinical Laboratory Improvement Amendments of 1988(CLIA) and is qualified to perform this test. ASSAY INFORMATION: Real Time RT-PCR ID Date Data Source [id number] 04/24/2020 12:00:00 AM EST [facility] Name Value Range Interpretation Code Description Data Tati rce(s) Supporting Document(s) SARS-CoV-2 (COVID-19) RNA [Presence] in Respiratory specimen by [facility] with probe detection Not Detected [facility] This lab was ordered by [facility] and reported by [email or web address]. Procedure Social History Code Duration Value Status Description Data Source(s ) Smoking 08/14/2020 12:00:00 AM EDT Unknown if ever smoked comp leted Unknown if ever smoked [facility] ([facility]) Smoking 08/03/2020 12:00:00 AM EDT Unknown if ever smoked comp leted Unknown if ever smoked [facility] ([facility]) Smoking 08/01/2020 12:00:00 AM EDT Unknown if ever smoked comp leted Unknown if ever smoked [facility] ([facility]) Smoking 07/06/2020 12:00:00 AM EDT Unknown if ever smoked comp leted Unknown if ever smoked [facility] ([facility]) Smoking 06/19/2020 12:00:00 AM EST Unknown if ever smoked comp leted Unknown if ever smoked [facility] ([facility]) Smoking 05/24/2020 12:00:00 AM EST Unknown if ever smoked comp leted Unknown if ever smoked [facility] ([facility]) Smoking 05/22/2020 12:00:00 AM EST Unknown if ever smoked comp leted Unknown if ever smoked [facility] ([facility]) Smoking 05/18/2020 12:00:00 AM EST Unknown if ever smoked comp leted Unknown if ever smoked [facility] ([facility]) Smoking 05/01/2020 12:00:00 AM EST Unknown if ever smoked comp leted Unknown if ever smoked [facility] ([facility]) Smoking 04/18/2020 12:00:00 AM EST Unknown if ever smoked comp leted Unknown if ever smoked [facility] ([facility]) Smoking 04/04/2020 12:00:00 AM EST Unknown if ever smoked comp leted Unknown if ever smoked [facility] ([facility]) Smoking 03/02/2020 12:00:00 AM EST Unknown if ever smoked comp leted Unknown if ever smoked [facility] ([facility]) Smoking 02/29/2020 12:00:00 AM EST Unknown if ever smoked comp leted Unknown if ever smoked [facility] ([facility]) Smoking 02/16/2020 12:00:00 AM EDT Unknown if ever smoked comp leted Unknown if ever smoked [facility] ([facility]) Smoking 02/02/2020 12:00:00 AM EDT Unknown if ever smoked comp leted Unknown if ever smoked [facility] ([facility]) Smoking 01/20/2020 12:00:00 AM EDT Unknown if ever smoked comp leted Unknown if ever smoked [facility] ([facility]) Vital Signs ID Date Data Source UNK Name Value Range Interpretation Code Description Data Source(s) Systolic blood pressure 136 mm[Hg] 136 mm[Hg] M [facility] ([facility] Diastolic blood pressure 82 mm[Hg] 82 mm[Hg] [facility] ([facility] Body temperature 98.0 [degF] 98.0 [degF] [facility] ([facility] Heart rate 75 /min 75 /min [facility] ([facility] Respiratory rate 16 /min 16 /min [facility] ( [facility] Body height 66 [in_i] 66 [in_i] [facility] 5'6" Body weight 161.00 [lb_av] 161.00 [lb_av] MED[facility] T ([facility] [place] body weight 130 [lb_av] 130 [lb_av] [facility] T ([facility] Body mass index (BMI) [Ratio] 26.0 kg/m2 26.0 k g/m2 [facility] ([facility] Oxygen saturation in Arterial blood by Pulse oximetry 97 % 97 % [facility] ([facility] Systolic blood pressure 110 mm[Hg] 110 mm[Hg] M [facility] ([facility] Diastolic blood pressure 72 mm[Hg] 72 mm[Hg] [facility] ([facility] Body temperature 97.5 [degF] 97.5 [degF] [facility] ([facility] Heart rate 78 /min 78 /min [facility] ([facility] Respiratory rate 16 /min 16 /min [facility] ( [facility] Body height 66 [in_i] 66 [in_i] [facility] ([facility] 5'6" Body weight 165.00 [lb_av] 165.00 [lb_av] MEDEN T ([facility] [place] body weight 130 [lb_av] 130 [lb_av] [facility] T ([facility] Body mass index (BMI) [Ratio] 26.6 kg/m2 26.6 k g/m2 [facility] ([facility] Oxygen saturation in Arterial blood by Pulse oximetry 98 % 98 % [facility] ([facility] Diastolic blood pressure 72 mm[Hg] 72 mm[Hg] [facility] ([facility] [place] body weight 130 [lb_av] 130 [lb_av] MEDEN T ([facility] Body mass index (BMI) [Ratio] 29.4 kg/m2 29.4 k g/m2 [facility] ([facility] Oxygen saturation in Arterial blood by Pulse oximetry 97 % 97 % [facility] ([facility] Body temperature 97.8 [degF] 97.8 [degF] [facility] ([facility] Heart rate 91 /min 91 /min [facility] ([facility] Respiratory rate 16 /min 16 /min [facility] ( [facility] Body height 66 [in_i] 66 [in_i] [facility] ([facility] 5'6" Body weight 182.00 [lb_av] 182.00 [lb_av] MEDEN T ([facility] Systolic blood pressure 110 mm[Hg] 110 mm[Hg] M EDENT ([facility] Body height 0.00 in Normal (applies to non-numeric resu lts) 0.00 in [facility] ([facility]) Body weight Measured 0.00 lbs Normal (applies to n on-numeric results) 0.00 lbs [facility] Body mass index (BMI) [Ratio] 0.00 kg/m2 No rmal (applies to non-numeric results) 0.00 kg/m2 [facility]) Systolic blood pressure 0 mm[Hg] Normal (applies t o non-numeric results) 0 mm[Hg] [facility] ([facility]) Diastolic blood pressure 0 mm[Hg] Normal (applies to non-numeric results) 0 mm[Hg] [facility] ([facility]) Systolic blood pressure 0 mm[Hg] Normal (applies t o non-numeric results) 0 mm[Hg] [facility] ([facility]) Diastolic blood pressure 0 mm[Hg] Normal (applies to non-numeric results) 0 mm[Hg] [facility] ([facility]) Body height 0.00 in Normal (applies to non-numeric resu lts) 0.00 in [facility] ([facility]) Body weight Measured 0.00 lbs Normal (applies to n on-numeric results) 0.00 lbs [facility] Body mass index (BMI) [Ratio] 0.00 kg/m2 No rmal (applies to non-numeric results) 0.00 kg/m2 [facility] ([facility]) Body height 0.00 in Normal (applies to non-numeric resu lts) 0.00 in [facility] ([facility]) Body weight Measured 0.00 lbs Normal (applies to n on-numeric results) 0.00 lbs [facility] ([facility]) Body mass index (BMI) [Ratio] 0.00 kg/m2 No rmal (applies to non-numeric results) 0.00 kg/m2 [facility] ([facility]) Systolic blood pressure 0 mm[Hg] Normal (applies t o non-numeric results) 0 mm[Hg] [facility] ([facility]) Diastolic blood pressure 0 mm[Hg] Normal (applies to non-numeric results) 0 mm[Hg] [facility] ([facility]) Heart rate 86 /min 86 /min [facility] ([facility] Systolic blood pressure 106 mm[Hg] 106 mm[Hg] M [facility] ([facility] Diastolic blood pressure 68 mm[Hg] 68 mm[Hg] [facility] ([facility] Body temperature 98.2 [degF] 98.2 [degF] [facility] ([facility] Respiratory rate 16 /min 16 /min [facility] ( [facility] Body height 66 [in_i] 66 [in_i] [facility] ([facility] 5'6" Body weight 159.00 [lb_av] 159.00 [lb_av] MEDEN T ([facility] [place] body weight 130 [lb_av] 130 [lb_av] MEDEN T ([facility] Body mass index (BMI) [Ratio] 25.7 kg/m2 25.7 k g/m2 [facility] ([facility] Oxygen saturation in Arterial blood by Pulse oximetry 98 % 98 % [facility] ([facility] Body height 0.00 in Normal (applies to non-numeric resu lts) 0.00 in [facility] ([facility]) Body weight Measured 0.00 lbs Normal (applies to n on-numeric results) 0.00 lbs [facility] ([facility]) Body mass index (BMI) [Ratio] 0.00 kg/m2 No rmal (applies to non-numeric results) 0.00 kg/m2 [facility] ([facility]) Systolic blood pressure 0 mm[Hg] Normal (applies t o non-numeric results) 0 mm[Hg] [facility] ([facility]) Diastolic blood pressure 0 mm[Hg] Normal (applies to non-numeric results) 0 mm[Hg] [facility] ([facility])
[2021-03-09] MEDS ORDERED: FLUC150T PO (04:18)
[2021-03-09] MEDS ORDERED: [UNRECOGNIZED DRUG - CODE] AD (04:18)
[2021-03-09] MEDS ORDERED: AZIT-12 PO (04:18)
[2021-03-09] MEDS ORDERED: EXCETAB33 PO (04:19)
[2021-03-09 07:26] LABS: BASO % 0.3 % (0.0-1.0); EOS # 0.2 10^3/uL (0.0-0.5); EOS % 1.3 % (0.0-3.0); HEMATOCRIT 41.2 % (36.0-47.0); HEMOGLOBIN 13.5 g/dl (12.0-15.5); LYMPH # 2.7 10^3/uL (1.5-5.0); LYMPH % 21.6 % (24.0-44.0); MEAN CORPUSCULAR HGB CONC 32.8 g/dl (32.0-36.5); MEAN CORPUSCULAR VOLUME 91.6 fl (80.0-96.0); MONO # 0.7 10^3/uL (0.0-0.8); NEUTROPHILS # 8.6 10^3/uL (1.5-8.5); NEUTROPHILS % 70.5 % (36.0-66.0); PLATELET COUNT, AUTOMATED 251 10^3/uL (150-450); WHITE BLOOD COUNT 12.3 10^3/uL (4.0-10.0)
[2021-03-09 07:53] LABS: ALBUMIN 3.8 GM/DL (3.2-5.2); ALT/SGPT 14 U/L (12-78); BILIRUBIN,TOTAL 0.4 MG/DL (0.2-1.0); BLOOD UREA NITROGEN 10 MG/DL (7-18); C REACTIVE PROTEIN QUANTITATIV 5.16 MG/DL (0.00-0.30); CALCIUM LEVEL 9.5 MG/DL (8.5-10.1); CARBON DIOXIDE LEVEL 26 MEQ/L (21-32); CHLORIDE LEVEL 108 MEQ/L (98-107); GLOMERULAR FILTRATION RATE > 60.0 (>60); GLUCOSE, FASTING 101 MG/DL (70-100); POTASSIUM SERUM 4.3 MEQ/L (3.5-5.1); SODIUM LEVEL 140 MEQ/L (136-145); TOTAL PROTEIN 7.4 GM/DL (6.4-8.2)
[2021-03-09 07:55] LABS: ERYTHROCYTE SEDIMENTATION RATE 20 mm/hr (0-20)
--- NOTE | 2021-03-09 08:26 | REPVR ---
PROCEDURE INFORMATION: Exam: CT Temporal Bones Without Contrast. Exam date and time: 03/09/2021 7:36 AM Age: 30 years old Clinical indication: Pain; Other: Worsening otitis externa, mastoid tenderness right TECHNIQUE: Imaging protocol: Computed tomography images of the temporal bones without contrast. Radiation optimization: All CT scans at this facility use at least one of these dose optimization techniques: automated exposure control; mA and/or kV adjustment per patient size (includes targeted exams where dose is matched to clinical indication); or iterative reconstruction. COMPARISON: No relevant prior studies available. FINDINGS: Right inner ear: Normal. Right ossicles and middle ear: Retraction of the tympanic membrane on the right. Abnormal soft tissue in the right epitympanum, mesotympanum, and hypotympanum. No bony erosive changes in the right middle ear. Right external auditory canal: Prominent soft tissue thickening in the external auditory canal on the right could be infectious or inflammatory. Adjacent fatty stranding. Right facial nerve canal: Normal. Right jugular foramen: No jugular dehiscence. Right carotid canal: No aberrant carotid canal. Right mastoid air cells: Small amount of mastoid fluid on the right. Left inner ear: Normal. Left ossicles and middle ear: Normal. The middle ear ossicles are intact. Left external auditory canal: Normal. Left facial nerve canal: Normal. Left jugular foramen: No jugular dehiscence. Left carotid canal: No aberrant carotid canal. Left mastoid air cells: Normal. No mastoid effusions. Brain: The visualized brain is within normal limits. Bones/joints: No acute fracture. Soft tissues: Unremarkable. IMPRESSION: Abnormal soft tissue thickening in the right external auditory canal and right middle ear without bony erosive change. This could be infectious or inflammatory and follow-up is recommended. Tiny amount of fluid in the mastoids on the right. Superficial soft tissue swelling. Electronically signed by: Edy Rivers On 03/09/2021 08:25:47 AM
--- OUTSIDE RECORDS SUMMARY | 2021-03-09 08:33 | CCD ---
Author Author [facility] Organization [facility] Address Unknown Phone Unavailable Care Team Providers Care Plumbing Drafter Name Role Phone Klever Amos Unavailable Unavailable Klever Amos Deborah PA Unavailable Unavailable Klever Amos Deborah PA Unavailable Unavailable Klever Amos Deborah PA Unavailable Unavailable Klever Amos Debroah PA Unavailable Unavailable Klever Amos Deborah PA [...] D Otilio PA Unavailable Unavailable Cris, D Oitlio PA Unavailable Unavailable Cris, D Otilio PA [...] is protected by Article 27-F of the [facility] Public Health law. If you continue you may have access to information: Regarding HIV / AIDS; Provided by facilities licensed or operated by the [facility] Office of Mental Health; or Provided by the [facility] Office for People With Developmental Disabilities. If such information is present, then the following [facility] mandated warning applies: This information has been [...] law may result in a fine or longterm sentence or both. A general authorization for the release of medical or other information is NOT sufficient authorization for further disc losure. Family History Family Member Name Family Member Gender Family Member Status Date o f Status Description Data Source(s) Unknown Male Problem [facility]ENT ([facility]) Unknown Unknown Problem [facility] Encounters Encounter Providers Location Date Indications Data Source(s ) Outpatient Attender: [place]tilio [place] [facility] 02:15:00 PM EST [facility] ([facility] Outpatient Attender: MELANY PAUL RPA 12/21 12:46:09 PM EDT - 12/21/2020 02:34:56 PM EDT [facility] ([facility] ) Outpatient Attender: Otilio [place] Office 11:15:00 AM EDT MEDENT ([facility] Outpatient Attender: Otilio GREER [place] Office 07/2020 03:45:00 PM EDT MEDENT ([facility] Outpatient Attender: Gonzalo Pimentel MD [facility] Philip antoine 08/14/2020 08:30:00 AM EDT - 08/14/2020 08:30:00 AM EDT [facility] ([facility]) Attender: Gonzalo Pimentel MD 08/14/2020 12:00:00 AM EDT [facility] ([facility]) Attender: Bharti Brewer 08/03/2020 12:00:00 AM EDT [facility] ([facility]) Extended Individual Psychotherapy - 45 min Attender: Bharti Brewer [facility] 08/02/2020 04:30:00 AM EDT - 08/02/2020 04:30:00 AM EDT [facility] ([facility]) Extended Individual Psychotherapy - 45 min Attender: Bharti Brewer [facility] 08/01/2020 01:00:00 AM EDT - 08/01/2020 01:00:00 AM EDT [facility] ([facility]) Attender: Bharti Brewer 08/01/2020 12:00:00 AM EDT [facility] ([facility]) Extended Individual Psychotherapy - 45 min Attender: Bharti Brewer [facility] 07/06/2020 12:59:00 PM EDT - 07/06/2020 12:59:00 PM EDT [facility] ([facility]) Attender: Bharti Brewer 07/06/2020 12:00:00 AM EDT [facility] ([facility]) Outpatient Attender: Gonzalo Pimentel MD [facility] Philip antoine 06/19/2020 08:30:00 AM EST - 06/19/2020 08:30:00 AM EST [facility] ([facility]) Attender: Gonzalo Pimentel MD 06/19/2020 12:00:00 AM EST [facility] ([facility]) Attender: Bharti Brewer 05/24/2020 12:00:00 AM EST [facility] ([facility]) Outpatient Attender: Gonzalo Pimentel MD [facility] elina 05/22/2020 08:00:00 AM EST - 05/22/2020 08:00:00 AM EST [facility] ([facility]) [id number]"Psychotherapy Attender: Bharti Brewer [facility] 05/22/2020 03:00:00 AM EST - 05/22/2020 03:00:00 AM EST [facility] ([facility]) Attender: Gonzalo Pimentel MD 05/22/2020 12:00:00 AM EST [facility] ([facility]) Attender: Bharti Brewer 05/18/2020 12:00:00 AM EST [facility] ([facility]) [id number]"Psychotherapy Attender: Bharti Brewer [facility] 05/16/2020 03:00:00 AM EST - 05/16/2020 03:00:00 AM EST [facility] ([facility]) Extended Individual Psychotherapy - 45 min Attender: Bharti Brewer [facility] 05/01/2020 01:00:00 AM EST - 05/01/2020 01:00:00 AM EST [facility] ([facility]) Attender: Bharti Brewer 05/01/2020 12:00:00 AM EST [facility] ([facility]) Attender: Bharti Brewer 04/18/2020 12:00:00 AM EST [facility] ([facility]) [id number]"Psychotherapy Attender: Bharti Brewer [facility] 04/17/2020 01:00:00 AM EST - 04/17/2020 01:00:00 AM EST [facility] ([facility]) [id number]"Psychotherapy Attender: Bharti Brewer [facility] 04/04/2020 05:00:00 AM EST - 04/04/2020 05:00:00 AM EST [facility] ([facility]) Attender: Bharti Brweer 04/04/2020 12:00:00 AM EST [facility] ([facility]) Outpatient Attender: NANCY BOOFRANCIE [facility] 03/02/2020 02:00:00 AM EST - 03/02/2020 02:00:00 AM EST [facility] ([facility]) Attender: NANCY BOOFRANCIE 03/02/2020 12:00: 00 AM EST [facility] ([facility]) [id number]"Psychotherapy Attender: Bharti Brewer [facility] 02/29/2020 05:00:00 AM EST - 02/29/2020 05:00:00 AM EST [facility] ([facility]) Attender: Bharti Brewer 02/29/2020 12:00:00 AM EST [facility] ([facility]) Attender: Bharti Brewer 02/16/2020 12:00:00 AM EDT [facility] ([facility]) Outpatient Attender: Deborah garzon 02/15/2020 11:00:00 AM EDT [facility] Extended Individual Psychotherapy - 45 min Attender: Bhrati Brewer [facility] 02/15/2020 05:00:00 AM EDT - 02/15/2020 05:00:00 AM EDT [facility] ([facility]) Attender: Bharti Brewer 02/02/2020 12:00:00 AM EDT [facility] ([facility]) Extended Individual Psychotherapy - 45 min Attender: Bharti Brewer [facility] 02/01/2020 05:00:00 AM EDT - 02/01/2020 05:00:00 AM EDT [facility] ([facility]) Outpatient Attender: NANCY BOOFRANCIE [facility] ail 01/20/2020 02:00:00 AM EDT - 01/20/2020 02:00:00 AM EDT [facility] ([facility]) Attender: NANCY RUSHING FPFRANCIE 01/20/2020 12:00: 00 AM EDT [facility] ([facility]) Attender: Bharti Osman 01/20/2020 12:00:00 AM EDT [facility] ([facility]) Extended Individual Psychotherapy - 45 min Attender: Bharti Brewer [facility] 01/18/2020 05:00:00 AM EDT - 01/18/2020 05:00:00 AM EDT [facility] ([facility]) Functional Status Medications Medication Brand Name Start Date Product Form Dose Route Admi nistrative Instructions Pharmacy Instructions Status Indications Reaction Description Data Source(s) 250 mg 03/07/2021 12:00:00 AM EST tablet 6 TAKE TWO TABLETS BY MOUTH AT ONCE ON THE FIRST DAY THEN TAKE ONE DAILY THEREAFTER TAKE TWO TABLETS BY MOUTH AT ONCE ON THE FIRST DAY THEN TAKE ONE DAILY THEREAFTER SOLD: 03/07/2021 [facility] Acetic Acid 20 MG/ML / Hydrocortisone 10 MG/ML Otic So lution Hydrocortisone- Acetic Acid 03/07/2021 12:00:00 AM EST AURICULAR active MED[facility] ([facility] Fluconazole 150 MG Oral Tablet [Diflucan] Diflucan 03/07/2021 1 2:00:00 AM EST ORAL active [facility] ([facility] Azithromycin 250 MG Oral Tablet Azithromycin 03/07/2021 12:00:[address] ORAL active MED[facility] ([facility] 1-2 % 03/07/2021 12:00:00 AM EST drops 10 INSTILL 2 DROPS IN THE RIGHT EAR FOUR TIMES A DAY FOR 10 DAYS INSTILL 2 DROPS IN THE RIGHT EAR FOUR TI MES A DAY FOR 10 DAYS SOLD: 03/07/2021 [facility] 150 mg 03/07/2021 12:00:00 AM EST tablet 2 TAKE ONE TABLET BY MOUTH TODAY FOLLOWED BY 1 TABLET IN 1 WEEK TAKE ONE TABLET BY MOUTH TODAY FOLLOWED BY 1 TABLET IN 1 WEEK SOLD: 03/07/2021 [facility] 500 mg 12/21/2020 12:00:00 AM EDT tablet [...] 12:00:00 AM E DT ORAL completed [facility] ([facility] 500 mg 12/14/2020 12:00:00 AM [...] TO ARMS SO LD: 01/30/2021 [facility] 2 % 12/07/2020 12:00:00 AM EDT ointment 22 APPLY TOPICALLY TWO TIMES A DAY FOR 10 DAYS TO ARMS APPLY TOPICALLY TWO TIMES A DAY FOR 10 DAYS TO ARMS SO LD: 03/07/2021 [facility] 150 mg 12/07/2020 12:00:00 AM EDT tablet 2 TAKE ONE TABLET BY MOUTH TODAY, FOLLOWED BY 1 TABLET IN ONE WEEK TAKE ONE TABLET BY MOUTH TODAY, FOLLOWED BY 1 TABLET IN ONE WEEK SOLD: 12/07/2020 [facility] 2 % 12/07/2020 12:00:00 AM EDT ointment 22 APPLY TOPICALLY TWO TIMES A DAY FOR 10 DAYS TO ARMS APPLY TOPICALLY TWO TIMES A DAY FOR 10 DAYS TO ARMS SO LD: 12/07/2020 [facility] Ciprofloxacin 250 MG Oral Tablet Ciprofloxacin HCL 12/07/2020 12:00 :00 AM EDT ORAL completed MED[facility] ([facility] Fluconazole 150 MG Oral Tablet [Diflucan] Diflucan 12/07/2020 1 2:00:00 AM EDT ORAL completed [facility] ([facility] 2 % 10/25/2020 12:00:00 [...] 08/21/2020 12:00:00 AM EDT ORAL completed [facility] ([facility] 2 % 08/21/2020 12:00:00 [...] A DAY FOR 7 DAYS SOLD: 05/31/2020 [facility] lamotrigine 100 MG Oral Tablet [Lamictal] Lamictal 05/22/2020 1 2:00:00 AM EST 100 mg by mouth completed <td ID="Me dicationRxNorm_1">212466</td><td ID="MedicationMedication_1">Lamictal</td><td ID="MedicationRoute_1">by mouth</td><td ID="MedicationRouteConcept_1">J33502</td><td ID="MedicationStartDate_1">05/22/2020</td><td ID="MedicationStopDate_1">09/19/2020</td><td ID="MedicationDosageFrequency_1">once a day</td><td ID="MedicationDuration_1">30</td><td ID="MedicationFormulaStrength_1">100 mg</td><td ID="MedicationDosageForm_1">tablet</td><td ID="MedicationDosageFormCode_1"></td><td ID="MedicationDosageDescription_1"></td><td ID="MedicationMedicationId_1">[id number]</td><td ID="MedicationAccount_1">[id number]</td><td ID="MedicationNpid_1">[id number]</td><td ID="MedicationAuthorFirstName_1">Gonzalo</td><td ID="MedicationAuthorLastName_1">Pimentel</td><td ID="MedicationTaxonomyCode_1">[id number]</td><td ID="MedicationTaxonomyDesc_1">Psychiatry</td><td ID="MedicationPhoneNumber_1"> [phone]</td> [facility] ([facility] 100 mg 05/22/2020 12:00:00 AM EST tablet 30 TAKE ONE TABLET BY MOUTH EVERY DAY TAKE ONE TABLET BY MOUTH EVERY DAY SOLD: 05/31/2020 [facility] lamotrigine 100 MG Oral Tablet lamotrigine 03/02/2020 12:00:00 AM EST 100 mg by mouth completed <td ID="Medica tionRxNorm_1">731334</td><td ID="MedicationMedication_1">lamotrigine</td><td ID="MedicationRoute_1">by mouth</td><td ID="MedicationRouteConcept_1">D78003</td><td ID="MedicationStartDate_1">03/02/2020</td><td ID="MedicationStopDate_1">05/01/2020</td><td ID="MedicationDosageFrequency_1">once a day</td><td ID="MedicationDuration_1">30</td><td ID="MedicationFormulaStrength_1">100 mg</td><td ID="MedicationDosageForm_1">tablet</td><td ID="MedicationDosageFormCode_1"></td><td ID="MedicationDosageDescription_1"></td><td ID="MedicationMedicationId_1">[id number]</td><td ID="MedicationAccount_1">[id number]</td><td ID="MedicationNpid_1">[id number]</td><td ID="MedicationAuthorFirstName_1">Nancy</td><td ID="MedicationAuthorLastName_1">Egorho</td><td ID="MedicationTaxonomyCode_1">[id number]</td><td ID="MedicationTaxonomyDesc_1">Nurse Practitioner</td><td ID="MedicationPhoneNumber_1">[phone]</td> [facility] ([facility]) 100 mg 03/02/2020 12:00:00 AM EST tablet 30 TAKE ONE TABLET BY MOUTH EVERY DAY TAKE ONE TABLET BY MOUTH EVERY DAY SOLD: 04/10/2020 [facility] 100 mg 03/02/2020 12:00:00 AM EST tablet 30 TAKE ONE TABLET BY MOUTH EVERY DAY TAKE ONE TABLET BY MOUTH EVERY DAY SOLD: 03/02/2020 [facility] lamotrigine 100 MG Oral Tablet lamotrigine 03/02/2020 12:00:00 AM EST 100 mg by mouth completed <td ID="Medica tionRxNorm_3">784230</td><td ID="MedicationMedication_3">lamotrigine</td><td ID="MedicationRoute_3">by mouth</td><td ID="MedicationRouteConcept_3">A38368</td><td ID="MedicationStartDate_3">03/02/2020</td><td ID="MedicationStopDate_3">05/01/2020</td><td ID="MedicationDosageFrequency_3">once a day</td><td ID="MedicationDuration_3">30</td><td ID="MedicationFormulaStrength_3">100 mg</td><td ID="MedicationDosageForm_3">tablet</td><td ID="MedicationDosageFormCode_3"></td><td ID="MedicationDosageDescription_3"></td><td ID="MedicationMedicationId_3">[id number]</td><td ID="MedicationAccount_3">[id number]</td><td ID="MedicationNpid_3">[id number]</td><td ID="MedicationAuthorFirstName_3">Nancy</td><td ID="MedicationAuthorLastName_3">Egorho</td><td ID="MedicationTaxonomyCode_3">[id number]</td><td ID="MedicationTaxonomyDesc_3">Nurse Practitioner</td><td ID="MedicationPhoneNumber_3">[phone]</td> [facility] 03/02/2020 12:00:00 AM EST tablet 30 TAKE ONE TABLET BY MOUTH EVERY DAY TAKE ONE TABLET BY MOUTH EVERY DAY SOLD: 03/02/2020 [facility] Sertraline 100 MG Oral Tablet sertraline 03/02/2020 12:00:00 AM EST 100 mg by mouth completed <td ID="Medica tionRxNorm_4">264256</td><td ID="MedicationMedication_4">sertraline</td><td ID="MedicationRoute_4">by mouth</td><td ID="MedicationRouteConcept_4">H28804</td><td ID="MedicationStartDate_4">03/02/2020</td><td ID="MedicationStopDate_4">05/01/2020</td><td ID="MedicationDosageFrequency_4">once a day</td><td ID="MedicationDuration_4">30</td><td ID="MedicationFormulaStrength_4">100 mg</td><td ID="MedicationDosageForm_4">tablet</td><td ID="MedicationDosageFormCode_4"></td><td ID="MedicationDosageDescription_4"></td><td ID="MedicationMedicationId_4">[id number]</td><td ID="MedicationAccount_4">[id number]</td><td ID="MedicationNpid_4">[id number]</td><td ID="MedicationAuthorFirstName_4">Nancy</td><td ID="MedicationAuthorLastName_4">Egorho</td><td ID="MedicationTaxonomyCode_4">[id number]</td><td ID="MedicationTaxonomyDesc_4">Nurse Practitioner</td><td ID="MedicationPhoneNumber_4">[phone]</td> [facility] ([facility]) Sertraline 100 MG Oral Tablet sertraline 03/02/2020 12:00:00 AM EST 100 mg by mouth completed <td ID="Medica tionRxNorm_2">292655</td><td ID="MedicationMedication_2">sertraline</td><td ID="MedicationRoute_2">by mouth</td><td ID="MedicationRouteConcept_2">K33154</td><td ID="MedicationStartDate_2">03/02/2020</td><td ID="MedicationStopDate_2">05/01/2020</td><td ID="MedicationDosageFrequency_2">once a day</td><td ID="MedicationDuration_2">30</td><td ID="MedicationFormulaStrength_2">100 mg</td><td ID="MedicationDosageForm_2">tablet</td><td ID="MedicationDosageFormCode_2"></td><td ID="MedicationDosageDescription_2"></td><td ID="MedicationMedicationId_2">[id number]</td><td ID="MedicationAccount_2">[id number]</td><td ID="MedicationNpid_2">[id number]</td><td ID="MedicationAuthorFirstName_2">Nancy</td><td ID="MedicationAuthorLastName_2">Egorho</td><td ID="MedicationTaxonomyCode_2">[id number]</td><td ID="MedicationTaxonomyDesc_2">Nurse Practitioner</td><td ID="MedicationPhoneNumber_2">[phone]</td> [facility] ([facility]) 100 mg 03/02/2020 12:00:00 AM EST tablet [...] 50 mg by mouth completed <td ID="Medica tionRxNorm_1">481743</td><td ID="MedicationMedication_1">sertraline</td><td ID="MedicationRoute_1">by mouth</td><td ID="MedicationRouteConcept_1">G88147</td><td ID="MedicationStartDate_1">01/20/2020</td><td ID="MedicationStopDate_1">03/02/2020</td><td ID="MedicationDosageFrequency_1">once a day</td><td ID="MedicationDuration_1">45</td><td ID="MedicationFormulaStrength_1">50 mg</td><td ID="MedicationDosageForm_1">tablet</td><td ID="MedicationDosageFormCode_1"></td><td ID="MedicationDosageDescription_1"></td><td ID="MedicationMedicationId_1">[id number]</td><td ID="MedicationAccount_1">[id number]</td><td ID="MedicationNpid_1">[id number]</td><td ID="MedicationAuthorFirstName_1">Nancy</td><td ID="MedicationAuthorLastName_1">Egorho</td><td ID="MedicationTaxonomyCode_1">[id number]</td><td ID="MedicationTaxonomyDesc_1">Nurse Practitioner</td><td ID="MedicationPhoneNumber_1">[phone]</td> [facility] ([facility]) lamotrigine 25 MG Oral Tablet lamotrigine 01/20/2020 12:00:00 AM EDT 25 mg by mouth completed <td ID="Medica tionRxNorm_2">064381</td><td ID="MedicationMedication_2">lamotrigine</td><td ID="MedicationRoute_2">by mouth</td><td ID="MedicationRouteConcept_2">K23473</td><td ID="MedicationStartDate_2">01/20/2020</td><td ID="MedicationStopDate_2">03/02/2020</td><td ID="MedicationDosageFrequency_2">twice a day</td><td ID="MedicationDuration_2">30</td><td ID="MedicationFormulaStrength_2">25 mg</td><td ID="MedicationDosageForm_2">tablet</td><td ID="MedicationDosageFormCode_2"></td><td ID="MedicationDosageDescription_2"></td><td ID="MedicationMedicationId_2">[id number]</td><td ID="MedicationAccount_2">[id number]</td><td ID="MedicationNpid_2">[id number]</td><td ID="MedicationAuthorFirstName_2">Nancy</td><td ID="MedicationAuthorLastName_2">Egorho</td><td ID="MedicationTaxonomyCode_2">[id number]</td><td ID="MedicationTaxonomyDesc_2">Nurse Practitioner</td><td ID="MedicationPhoneNumber_2">[phone]</td> [facility] ([facility]) buspirone hydrochloride 10 MG Oral Tablet buspirone 2019 12:00:00 AM EDT 10 mg by mouth completed <td ID="Medic ationRxNorm_2">731103</td><td ID="MedicationMedication_2">buspirone</td><td ID="MedicationRoute_2">by mouth</td><td ID="MedicationRouteConcept_2">L46275</td><td ID="MedicationStartDate_2">12/16/2019</td><td ID="MedicationStopDate_2">01/15/2020</td><td ID="MedicationDosageFrequency_2">twice a day</td><td ID="MedicationDuration_2">30</td><td ID="MedicationFormulaStrength_2">10 mg</td><td ID="MedicationDosageForm_2">tablet</td><td ID="MedicationDosageFormCode_2"></td><td ID="MedicationDosageDescription_2"></td><td ID="MedicationMedicationId_2">[id number]</td><td ID="MedicationAccount_2">[id number]</td><td ID="MedicationNpid_2">[id number]</td><td ID="MedicationAuthorFirstName_2">Nancy</td><td ID="MedicationAuthorLastName_2">Egorho</td><td ID="MedicationTaxonomyCode_2">[id number]</td><td ID="MedicationTaxonomyDesc_2">Nurse Practitioner</td><td ID="MedicationPhoneNumber_2">[phone]</td> [facility] ([facility]) Insurance Providers Payer name Policy type / Coverage type Policy ID Covered republican ID Covered republican's relationship to [place] Policy [place] Plan Information [facility] Workers Compensation [id number] Self [employer] [place] Blue Cross/B lue Shield [id number] Self [id number] [employer] [id number] Self [id number] SELF PAY ONLY [id number] SP [id number] MEDICAID [id number] SP [id number] [employer] COMMUNITY PLAN [facility] [id number] SP [id number] MEDICAID P [id number] S [id number] [facility](MCAID) P [id number] S [id number] [facility]/P [id number] 18 [id number] [facility] COMMUNITY PLAN [facility] [id number] SP [id number] [facility](MCAID) O [id number] S [id number] [facility] [id number] SP [id number] [facility](MCAID) O [id number] S [id number] SELF PAY ONLY [id number] SP [id number] [employer]BS [place] PPO 302/307 [id number] SP [id number] [facility] Organization (HMO) [id number] 58 [id number] Self [id number] [employer] [place] PPO 302/307 [id number] SP [id number] [facility] Health Maintenance Organization (HMO) [id number] 58 [id number] Self [id number] Medicaid [place] Medicaid [id number] Self [id number] [facility] PL[facility] [id number] SP [id number] [facility] PL[facility] [id number] SP [id number] [facility] [id number] SP [id number] SELF PAY ONLY [id number] SP [id number] [facility] [id number] SP [id number] [facility] [id number] SP [id number] [facility] B [id number] S [id number] Problems, Conditions, and Diagnoses Code Display Name Description Problem Type Effective Dates Data Source(s) F60.3 Borderline personality disorder Borderline Personality Disorder Condition 08/14/2020 12:00:00 AM EDT [facility] ([facility]) F42.4 Excoriation (skin-picking) disorder Excoriation (Skin-Picking) Disorder Condition 08/14/2020 12:00:00 AM EDT [facility] ([facility]) F43.10 Post-traumatic stress disorder, unspecif ied Posttraumatic Stress Disorder (includes Posttraumatic Stress Disorder for Children 6 Years and Younger) Condition 08/14/2020 12:00:00 AM EDT [facility] ([facility]) F31.81 Bipolar II disorder Bipolar II Disorder Condition 0 08/14/2020 12:00:00 AM EDT [facility] ([facility]) F60.3 Borderline personality disorder Borderline Personality Disorder Condition 06/19/2020 12:00:00 AM EST [facility] ([facility]) F42.4 Excoriation (skin-picking) disorder Excoriation (Skin-Picking) Disorder Condition 06/19/2020 12:00:00 AM EST [facility] ([facility]) F43.10 Post-traumatic stress disorder, unspecif ied Posttraumatic Stress Disorder (includes Posttraumatic Stress Disorder for Children 6 Years and Younger) Condition 06/19/2020 12:00:00 AM EST [facility] ([facility]) F41.9 Anxiety disorder, unspecified Unspecified Anxiety Diso rder Condition 06/19/2020 12:00:00 AM EST [facility] ([facility]) F10.19 Alcohol abuse with unspecified alcohol-i nduced disorder Alcohol abuse with unspecified alcohol-induced disorder Condition 05/18/2020 12:00:0 0 AM EST [facility] ([facility]) F31.81 Bipolar II disorder Bipolar II Disorder Condition 0 05/18/2020 12:00:00 AM EST [facility] ([facility]) F41.9 Anxiety disorder, unspecified Unspecified Anxiety Diso rder Condition 05/18/2020 12:00:00 AM EST [facility] ([facility]) Surgeries/Procedures Procedure Description Date Indications Data Source(s) [...] EDT - 08/14/2020 12:00:00 AM EDT [facility] ([facility]) MHC Telemed E/M Lvl 2--Est pt 08/14/2020 12:00:00 AM E DT [facility] ([facility]) Extended Individual Psychotherapy - 45 min 08/03/2020 12:00:00 AM EDT - 08/03/2020 12:00:00 AM EDT [facility] ([facility]) Extended Individual Psychotherapy - 45 min 12:00:00 AM EDT [facility] ([facility]) Extended Individual Psychotherapy - 45 min 08/01/2020 12:00:00 AM EDT - 08/01/2020 12:00:00 AM EDT [facility] ([facility]) Extended Individual Psychotherapy - 45 min 12:00:00 AM EDT [facility] ([facility]) Extended Individual Psychotherapy - 45 min 07/06/2020 12:00:00 AM EDT - 07/06/2020 12:00:00 AM EDT [facility] ([facility]) Extended Individual Psychotherapy - 45 min 12:00:00 AM EDT [facility] ([facility]) MHC Telemed E/M Lvl 2--Est pt 06/19/2020 12:00:00 AM EST - 06/19/2020 12:00:00 AM EST [facility] ([facility]) MHC Telemed E/M Lvl 2--Est pt 06/19/2020 12:00:[address] [facility] ([facility]) [id number]"Psychotherapy 1 12:00:00 AM EST - 05/24/2020 12:00:00 AM EST [facility] ([facility]) [id number]"Psychotherapy 05/22/2020 12:00:00 AM EST [facility] ([facility]) MHC Telemed E/M Lvl 3--Est pt 05/22/2020 12:00:00 AM EST - 05/22/2020 12:00:00 AM EST [facility] ([facility]) MHC Telemed E/M Lvl 3--Est pt 05/22/2020 12:00:[address] [facility] ([facility]) [id number]"Psychotherapy 1 12:00:00 AM EST - 05/18/2020 12:00:00 AM EST [facility] ([facility]) [id number]"Psychotherapy 05/16/2020 12:00:00 AM EST [facility] ([facility]) Extended Individual Psychotherapy - 45 min 05/01/2020 12:00:00 AM EST - 05/01/2020 12:00:00 AM EST [facility] ([facility]) Extended Individual Psychotherapy - 45 min 12:00:00 AM EST [facility] ([facility]) [id number]"Psychotherapy 0 12:00:00 AM EST - 04/18/2020 12:00:00 AM EST [facility] ([facility]) [id number]"Psychotherapy 04/17/2020 12:00:00 AM EST [facility] ([facility]) [id number]"Psychotherapy 0 12:00:00 AM EST - 04/04/2020 12:00:00 AM EST [facility] ([facility]) [id number]"Psychotherapy 04/04/2020 12:00:00 AM EST [facility] ([facility]) MHC Telemed E/M Lvl 3--Est pt 03/02/2020 12:00:00 AM EST - 03/02/2020 12:00:00 AM EST [facility] ([facility]) MHC Telemed E/M Lvl 3--Est pt 03/02/2020 12:00:[address] [facility] ([facility]) [id number]"Psychotherapy 0 12:00:00 AM EST - 02/29/2020 12:00:00 AM EST [facility] ([facility]) [id number]"Psychotherapy 02/29/2020 12:00:00 AM EST [facility] ([facility]) Extended Individual Psychotherapy - 45 min 02/16/2020 12:00:00 AM EDT - 02/16/2020 12:00:00 AM EDT [facility] ([facility]) Extended Individual Psychotherapy - 45 min 0 12:00:00 AM EDT [facility] ([facility]) Extended Individual Psychotherapy - 45 min 02/02/2020 12:00:00 AM EDT - 02/02/2020 12:00:00 AM EDT [facility] ([facility]) Extended Individual Psychotherapy - 45 min 0 12:00:00 AM EDT [facility] ([facility]) OFFICE OUTPATIENT VISIT 15 MINUTES 01/19 12:00:00 AM EDT - 01/20/2020 12:00:00 AM EDT [facility] ([facility]) OFFICE OUTPATIENT VISIT 15 MINUTES 01/20/2020 12:00:00 AM EDT [facility] ([facility]) Extended Individual Psychotherapy - 45 min 01/20/2020 12:00:00 AM EDT - 01/20/2020 12:00:00 AM EDT [facility] ([facility]) Extended Individual Psychotherapy - 45 min 0 12:00:00 AM EDT [facility] ([facility]) Results ID Date Data Source [id number] 12/21/2020 01:00:00 PM EDT [facility] Name Value Range Interpretation Code Description Data Tati rce(s) Supporting Document(s) SARS-CoV-2 RNA Resp Ql EARL+probe DETECTED [facility] This lab was ordered by [facility] and reported by [facility] [place]. ID Date Data Source [id number] 12/13/2020 09:05:00 AM EDT [facility] ([facility] Name Value Range Interpretation Code Description Data Tati rce(s) Supporting Document(s) Chlamydia trachomatis rRNA [Presence] in Cervix by Probe and target amplification method Laboratory test result Abnormal (applie s to non-numeric results) [facility] ([facility] ) Source of Specimen: urine Neisseria gonorrhoeae rRNA [Presence] in Unspecified specimen by Probe and target amplification method Laboratory test result [facility] ([facility] Source of Specimen: urine ID Date Data Source [id number] 12/07/2020 11:23:00 AM EDT [facility] ([facility] Name Value Range Interpretation Code Description Data Tati rce(s) Supporting Document(s) Urine Culture, Routine Laboratory test result Ab normal (applies to non-numeric results) [facility] ([facility] ) SRC:URINE Bacteria identified in Urine by Culture Laboratory test result Abnormal (applies to non-numeric results) [facility] ([facility] SRC:URINE Antimicrobial Susceptibility Laboratory test result [facility] ([facility] SRC:URINE ID Date Data Source [id number] 12/07/2020 11:22:00 AM EDT [facility] ([facility] Name Value Range Interpretation Code Description Data Tati rce(s) Supporting Document(s) Color Urine Laboratory test result M [facility] ([facility] Appearance of Urine Laboratory test result [facility] ([facility] Specific Howe 1.025 1.00-1.03 [facility] ([facility] Glucose Urine Laboratory test result [facility] ([facility] PH Urine 7.0 5.0-8.0 [facility] Ketones Laboratory test result [facility] ([facility] Bilirubin.total [Presence] in Urine by Test strip Laboratory test res ult [facility] ([facility] Blood Urine Laboratory test result Above high normal [facility] ([facility] Protein Urine Laboratory test result [facility] ([facility] Nitrite Laboratory test result Above high normal [facility] ([facility] Urobilinogen 0.2 EU/dl 0.2-1.0 [facility] ([facility] Leukocytes Laboratory test result Above high normal [facility] ([facility] ID Date Data Source [id number] 08/21/2020 04:37:00 PM EDT [facility] Name Value Range Interpretation Code Description Data Tati rce(s) Supporting Document(s) Bacteria identified in Unspecified specimen by Aerobe culture Laboratory test result [facility] ([facility] Preliminary report Bacteria identified in Unspecified specimen by Culture Laborator y test result [facility] ([facility] ) No growth in 36 - 48 hours. ID Date Data Source [id number] 05/25/2020 08:19:00 PM EST [facility] ([facility] Name Value Range Interpretation Code Description Data Tati rce(s) Supporting Document(s) Reflex Urine Culture Laboratory test result Norm al (applies to non-numeric results) [facility] ([facility] ) <content>FULL REPORT IN LAB NOTES [...] FOR ESBL</content>
<content></content> ID Date Data Source [id number] 05/25/2020 08:19:00 PM EST [facility] ([facility] Name Value Range Interpretation Code Description Data Tati rce(s) Supporting Document(s) Appearance, Urine RFX Laboratory test result Above high no rmal [facility] ([facility] Color, Urine RFX Laboratory test result Normal ( applies to non-numeric results) [facility] ([facility] ) PH,Urine RFX 6.0 units 5.0-9.0 Normal (applies to non-numeric res ults) [facility] ([facility] Specific [place] Ur Auto RFX 1.021 1.002-1.035 Nor mal (applies to non-numeric results) [facility] ([facility] ) Protein, Urine Auto RFX Laboratory test result N ormal (applies to non-numeric results) [facility] ([facility] ) Glucose, Urine (Ua) Auto RFX Laboratory test result Normal (applies to non- numeric results) [facility] ([facility] ) Ketone, Urine Auto RFX Laboratory test result Above high n ormal [facility] ([facility] Urobilinogen, Urine Auto RFX 0.2 mg/dL 0.0-2.0 Nor mal (applies to non-numeric results) [facility] ([facility] ) Bilirubin, Urine Auto RFX Laboratory test result Normal (applies to non- numeric results) [facility] ([facility] ) Nitrite, Urine Auto RFX Laboratory test result N ormal (applies to non-numeric results) [facility] ([facility] ) Leukocyte Esterase Ur Auto RFX Laboratory test result Abov e high normal [facility] ([facility] Blood, Urine Blood RFX Laboratory test result Above high n ormal [facility] ([facility] RBC, Urine Auto RFX 11 /HPF 0-3 Above high normal [facility] ([facility] WBC, Urine Auto RFX 17 /HPF 0-3 Above high normal [facility] Bacteria, Urine Auto RFX Laboratory test result Above high normal [facility] Squam Epithelial Cell Ur Aurfx 12 /HPF 0-6 N ormal (applies to non-numeric results) [facility] ([facility] ) Mucus, Urine RFX Laboratory test result Normal ( applies to non-numeric results) [facility] ) Hyaline Cast, Urine Auto RFX 0 /LPF 0-1 Normal (appl ies to non-numeric results) [facility] ([facility] ID Date Data Source [id number] 05/25/2020 06:44:00 PM EST [facility] ([facility] Name Value Range Interpretation Code Description Data Tati rce(s) Supporting Document(s) Chlamydia Dna Amplification Laboratory test result Normal (applies to non- numeric results) [facility] ) A negative test result does not exclude the possibility of infection because test results may be affected by improper specimen collection, technical error, specimen mix-up, concurrent antibiotic therapy, or the number of organisms in the specimen which may be below the sensitivity of the test. GC Dna Amplification Laboratory test result Norm al (applies to non-numeric results) [facility] ([facility] ) A negative test result does not exclude the possibility of infection because test results may be affected by improper specimen collection, technical error, specimen mix-up, concurrent antibiotic therapy, or the number of organisms in the specimen which may be below the sensitivity of the test. Laboratory test finding (navigational concept) Laboratory test r esult Normal (applies to non-numeric results) [facility] A negative test result does not exclude the possibility of infection because test results may be affected by improper specimen collection, technical error, sample mix-up, or because the number of organisms in the sample is below the limit of detection of the test. ID Date Data Source [id number] 05/25/2020 06:44:00 PM EST [facility] ([facility] Name Value Range Interpretation Code Description Data Tati rce(s) Supporting Document(s) Wet Prep Laboratory test result Normal (applies to non-n umeric results) [facility] ([facility] MANY RBC FEW WBC MODERATE EPITHELIAL CELLS PRESENT MANY LONG RODS PRESENT FEW SHORT RODS PRESENT FEW CLUE CELLS PRESENT ID Date Data Source [id number] 05/25/2020 05:50:00 PM EST [facility] ([facility] Name Value Range Interpretation Code Description Data Tati rce(s) Supporting Document(s) Glucose, Fasting 97 mg/dL 70-100 Normal (applies to non-numeric results) [facility] ([facility] Blood Urea Nitrogen 14 mg/dL 7-18 Normal (applies to non-nume dino results) [facility] ([facility] Creatinine For GFR 0.80 mg/dL 0.55-1.30 Normal (applies to non -numeric results) [facility] ([facility] Glomerular Filtration Rate Laboratory test result Normal (applies to non- numeric results) [facility] ) <content>Units are mL/min/1.73 m2</content>
<content></content>
<content>Chronic Kidney Disease Staging per NKF:</content>
<content></content>
<content>Stage I & II GFR >=60 Normal to Mildly Decreased</content>
<content>Stage III GFR 30- 59 Moderately Decreased</content>
<content>Stage IV GFR 15-29 Severely Decreased</content>
<content>Stage V GFR <15 Very Little GFR Left</content>
<content>ESRD GFR <15 on [employer]</content>
<content></content> Sodium Level 140 meq/L 136-145 Normal (applies to non-numeric res ults) [facility] ([facility] Potassium Serum 4.1 meq/L 3.5-5.1 Normal (applies to non-numeric results) [facility] ([facility] Chloride Level 106 meq/L 98-107 Normal (applies to non-numeric r esults) [facility] Carbon Dioxide Level 29 meq/L 21-32 Normal (applies to non-num trav results) [facility] Anion Gap 5 meq/L 8-16 Below low normal [facility] ( [facility] Calcium Level 9.6 mg/dL 8.5-10.1 Normal (applies to non-numeric re sults) [facility] ([facility] ID Date Data Source [id number] 05/25/2020 05:50:00 PM EST [facility] ([facility] Name Value Range Interpretation Code Description Data Tati rce(s) Supporting Document(s) White Blood Count 9.6 10 4.0-10.0 Normal (applies to non-numeri c results) [facility] Hemoglobin 13.2 g/dL 12.0-15.5 Normal (applies to non-numeric resul ts) [facility] Red Blood Count 4.36 10 4.00-5.40 Normal (applies to non-numeric results) [facility] Mean Corpuscular Volume 92.2 fl 80.0-96.0 Normal ( applies to non-numeric results) [facility] ([facility] ) Hematocrit 40.2 % 36.0-47.0 Normal (applies to non-numeric resul ts) [facility] ([facility] Mean Corpuscular Hemoglobin 30.3 pg 27.0-33.0 Norm al (applies to non-numeric results) [facility] ([facility] ) Mean Corpuscular HGB Conc 32.8 g/dL 32.0-36.5 Normal (applies to non-numeric results) [facility] ([facility] ) Red Cell Distribution Width 12.1 % 11.5-14.5 Norm al (applies to non-numeric results) [facility] ([facility] ) Platelet Count, Automated 293 10 150-450 Normal (applies to non-numeric results) [facility] ([facility] ) Neutrophils % 60.7 % 36.0-66.0 Normal (applies to non-numeric re sults) [facility] ([facility] Lymph % 30.3 % 24.0-44.0 Normal (applies to non-numeric resul ts) [facility] ([facility] [place] % 6.3 % 0.0-5.0 Above high normal [...] on-numeric results) [facility] ([facility] Lymph # 2.9 10 1.5-5.0 Normal (applies to non-numeric resul ts) [facility] ([facility] Neutrophils # 5.8 10 1.5-8.5 Normal (applies to non-numeric re sults) [facility] ([facility] [place] # 0.6 10 0.0-0.8 Normal (applies to non-numeric resul ts) [facility] ([facility] Eos # 0.2 10 0.0-0.5 Normal (applies to non-numeric resul ts) [facility] ([facility] Baso # 0.1 10 0.0-0.2 Normal (applies to non-numeric resul ts) [facility] ([facility] ID Date Data Source [id number] 05/25/2020 05:49:00 PM EST [facility] ([facility] Name Value Range Interpretation Code Description Data Tati rce(s) Supporting Document(s) Laboratory test finding (navigational concept) Laboratory test r esult Normal (applies to non-numeric results) [facility] <content>QUANTITATIVE RESULT QU ALITATIVE INTERPRETATION</content>
<content> </content>
<content><5.0 IU/L NEGATIVE</content>
<content>5.0 - 25.0 IU/L INDETERMINATE</content>
<content>>25.0 IU/L POSITIVE</content>
<content></content> ID Date Data Source [id number] 05/15/2020 12:20:00 PM EST [facility] ([facility] Name Value Range Interpretation Code Description Data Tati rce(s) Supporting Document(s) Laboratory test finding (navigational concept) Laboratory test result [facility] ([facility] Test: COVID-19 Nasal/Naspharynx Result: NOT DETECTED Reference Units: Not detected Note: Please consider re-collection of a new specimen, if clinically indicated. Note: The COVID-19 assay is under Emergency Use Authorization(EUA) by the U.S. Food and Drug Administration. [facility] is designated as a high complexity laboratory by the Clinical Laboratory Improvement Amendments of 1988(CLIA) and is qualified to perform this test. ASSAY INFORMATION: Real Time RT-PCR ID Date Data Source [id number] 05/15/2020 12:00:00 AM EST [facility] Name Value Range Interpretation Code Description Data Tati rce(s) Supporting Document(s) SARS-CoV-2 (COVID-19) RNA [Presence] in Respiratory specimen by EARL with probe detection Not Detected [facility] This lab was ordered by [facility] and reported by [employer]. ID Date Data Source [id number] 04/24/2020 10:20:00 AM EST [facility] ([facility] Name Value Range Interpretation Code Description Data Tati rce(s) Supporting Document(s) Laboratory test finding (navigational concept) Laboratory test result [facility] Test: COVID-19 Nasal/Naspharynx Result: NOT DETECTED Reference Units: Not detected Note: Please consider re-collection of a new specimen, if clinically indicated. Note: The COVID-19 assay is under Emergency Use Authorization(EUA) by the U.S. Food and Drug Administration. [facility] is designated as a high complexity laboratory by the Clinical Laboratory Improvement Amendments of 1988(CLIA) and is qualified to perform this test. ASSAY INFORMATION: Real Time RT-PCR ID Date Data Source [id number] 04/24/2020 12:00:00 AM EST [facility] Name Value Range Interpretation Code Description Data Tati rce(s) Supporting Document(s) SARS-CoV-2 (COVID-19) RNA [Presence] in Respiratory specimen by EARL with probe detection Not Detected [facility] This lab [facility] and reported by [employer] Procedure Social History Code Duration Value Status Description Data Source(s ) Smoking 08/14/2020 12:00:00 AM EDT Unknown if ever smoked comp leted Unknown if ever smoked [facility] ([facility] Smoking 08/03/2020 12:00:00 AM EDT Unknown if ever smoked comp leted Unknown if ever smoked [facility] ([facility]) Smoking 08/01/2020 12:00:00 AM EDT Unknown if ever smoked comp leted Unknown if ever smoked [facility] ([facility]) Smoking 07/06/2020 12:00:00 AM EDT Unknown if ever smoked comp leted Unknown if ever smoked [facility] ([facility]) Smoking 06/19/2020 12:00:00 AM EST Unknown if ever smoked comp leted Unknown if ever smoked [facility] ([facility]) Smoking 05/24/2020 12:00:00 AM EST Unknown if ever smoked comp leted Unknown if ever smoked [facility] ([facility]) Smoking 05/22/2020 12:00:00 AM EST Unknown if ever smoked comp leted Unknown if ever smoked [facility] ([facility]) Smoking 05/18/2020 12:00:00 AM EST Unknown if ever smoked comp leted Unknown if ever smoked [facility] ([facility]) Smoking 05/01/2020 12:00:00 AM EST Unknown if ever smoked comp leted Unknown if ever smoked [facility] ([facility]) Smoking 04/18/2020 12:00:00 AM EST Unknown if ever smoked comp leted Unknown if ever smoked [facility] ([facility]) Smoking 04/04/2020 12:00:00 AM EST Unknown if ever smoked comp leted Unknown if ever smoked [facility] ([facility]) Smoking 03/02/2020 12:00:00 AM EST Unknown if ever smoked comp leted Unknown if ever smoked [facility] ([facility]) Smoking 02/29/2020 12:00:00 AM EST Unknown if ever smoked comp leted Unknown if ever smoked [facility] ([facility]) Smoking 02/16/2020 12:00:00 AM EDT Unknown if ever smoked comp leted Unknown if ever smoked [facility] ([facility]) Smoking 02/02/2020 12:00:00 AM EDT Unknown if ever smoked comp leted Unknown if ever smoked [facility] ([facility]) Smoking 01/20/2020 12:00:00 AM EDT Unknown if ever smoked comp leted Unknown if ever smoked [facility] ([facility]) Vital Signs ID Date Data Source [id number] [...] height 66 [in_i] 66 [in_i] [facility] ([facility] 5'6" Body weight 161.00 [lb_av] 161.00 [lb_av] [facility] ([facility] [place] body weight 130 [lb_av] 130 [lb_av] [facility] ([facility] Body mass index (BMI) [Ratio] 26.0 kg/m2 26.0 k g/m2 [facility] ([facility] Oxygen saturation in Arterial blood by Pulse oximetry 97 % 97 % [facility] ([facility] Diastolic blood pressure 72 mm[Hg] 72 mm[Hg] [facility] ([facility] Body temperature 97.5 [degF] 97.5 [degF] [facility] ([facility] Heart rate 78 /min 78 /min [facility] ([facility] Respiratory rate 16 /min 16 /min [facility] ( [facility] Body height 66 [in_i] 66 [in_i] [facility] ([facility] 5'6" Body weight 165.00 [lb_av] 165.00 [lb_av] [facility] T ([facility] [place] body weight 130 [lb_av] 130 [lb_av] [facility] T ([facility] Body mass index (BMI) [Ratio] 26.6 kg/m2 26.6 k g/m2 [facility] ([facility] Oxygen saturation in Arterial blood by Pulse oximetry 98 % 98 % [facility] ([facility] Systolic blood pressure 110 mm[Hg] 110 mm[Hg] M ED[facility] ([facility] Diastolic blood pressure 72 mm[Hg] 72 mm[Hg] [facility] ([facility] Body temperature 97.8 [degF] 97.8 [degF] [facility] ([facility] Heart rate 91 /min 91 /min [facility] ([facility] Respiratory rate 16 /min 16 /min [facility] ( [facility] Body height 66 [in_i] 66 [in_i] [facility] ([facility] 5'6" Body weight 182.00 [lb_av] 182.00 [lb_av] [facility] T ([facility] [facility] [place] body weight 130 [lb_av] 130 [lb_av] MEDEN T ([facility] Body mass index (BMI) [Ratio] 29.4 kg/m2 29.4 k g/m2 [facility] ([facility] Oxygen saturation in Arterial blood by Pulse oximetry 97 % 97 % [facility] ([facility] Systolic blood pressure 110 mm[Hg] 110 mm[Hg] M EDENT ([facility] Body height 0.00 in Normal (applies to non-numeric resu lts) 0.00 in [facility] ([facility]) Diastolic blood pressure 0 mm[Hg] Normal (applies to non-numeric results) 0 mm[Hg] [facility] ([facility]) Body weight Measured 0.00 lbs Normal (applies to n on-numeric results) 0.00 lbs [facility] ([facility]) Body mass index (BMI) [Ratio] 0.00 kg/m2 No rmal (applies to non-numeric results) 0.00 kg/m2 [facility] ([facility]) Systolic blood pressure 0 mm[Hg] Normal (applies t o non-numeric results) 0 mm[Hg] [facility] ([facility]) Body height 0.00 in Normal (applies to non-numeric resu lts) 0.00 in [facility] ([facility]) Body weight Measured 0.00 lbs Normal (applies to n on-numeric results) 0.00 lbs [facility] ([facility]) Body mass index (BMI) [Ratio] 0.00 kg/m2 No rmal (applies to non-numeric results) 0.00 kg/m2 [facility] ([facility]) Systolic blood pressure 0 mm[Hg] Normal (applies t o non-numeric results) 0 mm[Hg] [facility] ([facility]) Diastolic blood pressure 0 mm[Hg] Normal (applies to non-numeric results) 0 mm[Hg] [facility] ([facility]) Body height 0.00 in Normal (applies to non-numeric resu lts) 0.00 in [facility] ([facility]) Body weight Measured 0.00 lbs Normal (applies to n on-numeric results) 0.00 lbs [facility] ([facility]) Body mass index (BMI) [Ratio] 0.00 kg/m2 No rmal (applies to non-numeric results) 0.00 kg/m2 [facility] ([facility]) Systolic blood pressure 0 mm[Hg] Normal (applies t o non-numeric results) 0 mm[Hg] [facility] ([facility]) Diastolic blood pressure 0 mm[Hg] Normal (applies to non-numeric results) 0 mm[Hg] [facility] ([facility]) Heart rate 86 /min 86 /min [facility] ([facility] Oxygen saturation in Arterial blood by Pulse oximetry 98 % 98 % [facility] ([facility] Systolic blood pressure 106 mm[Hg] 106 mm[Hg] M EDENT ([facility] Diastolic blood pressure 68 mm[Hg] 68 mm[Hg] [facility] ([facility] Body temperature 98.2 [degF] 98.2 [degF] [facility] ([facility] Respiratory rate 16 /min 16 /min [facility] ( [facility] Body height 66 [in_i] 66 [in_i] [facility] ([facility] 5'6" Body weight 159.00 [lb_av] 159.00 [lb_av] MEDEN T ([facility] [place] body weight 130 [lb_av] 130 [lb_av] MEDEN T ([facility] Body mass index (BMI) [Ratio] 25.7 kg/m2 25.7 k g/m2 [facility] ([facility] Body height 0.00 in Normal (applies to non-numeric resu lts) 0.[address] [facility] ([facility]) Body weight Measured 0.00 lbs Normal (applies to n on-numeric results) 0.00 lbs [facility] ([facility]) Body mass index (BMI) [Ratio] 0.00 kg/m2 No rmal (applies to non-numeric results) 0.00 kg/m2 [facility] ([facility]) Systolic blood pressure 0 mm[Hg] Normal (applies t o non-numeric results) 0 mm[Hg] [facility] ([facility]) Diastolic blood pressure 0 mm[Hg] Normal (applies to non-numeric results) 0 mm[Hg] [facility] ([facility])
[2021-03-09] MEDS ORDERED: CIPR0.3S6 AD (09:32)
[2021-03-09] MEDS ORDERED: CIPR-249 PO (09:36)
[2021-03-09] MEDS ORDERED: IBUP80TA PO (09:37)
[2021-03-09 09:51] VITALS: BP 122/62
== END 2021-03-09 09:52 | disposition home or self-care (01) ==
LOC: M ED 03:49
DX: H60.91 Unspecified otitis externa, right ear (principal); H66.91 Otitis media, unspecified, right ear; Z86.16 Personal history of COVID-19

== ENCOUNTER → 2021-06-29 | Outpatient (REF) | payer OTHER ==
[~2021-06-29] MED LIST changes: +AZIT-12 PO; +CIPR-249 PO; +CIPR0.3S6 AD; -CITA40TA4 PO; +CITA40TA7 PO; +EXCETAB33 PO; +FLUC150T9 PO; +IBUP80TA PO; +[UNRECOGNIZED DRUG - CODE] AD
[2021-06-29 18:18] LABS: GC DNA AMPLIFICATION NEGATIVE (NEGATIVE)
== END ==
LOC: M LAB REF 16:41
PROVIDERS: ATTEND Physician Assistant
DX: R10.2 Pelvic and perineal pain (principal)

== ENCOUNTER → 2021-07-01 | Outpatient (CLI) | payer OTHER | LOC: M WUC 15:55 | PROVIDERS: ATTEND Physician Assistant | DX: R06.02 Shortness of breath (principal); R05.9 Cough, unspecified ==

== ENCOUNTER → 2022-01-15 | Outpatient (CLI) | payer OTHER ==
[~2022-01-15] MED LIST changes: +EXCETAB32 PO; -EXCETAB33 PO
== END ==
LOC: M WUC 12:06
PROVIDERS: ATTEND Nurse Practitioner Adult Health
DX: R05.9 Cough, unspecified (principal); R06.02 Shortness of breath; F17.208 Nicotine dependence, unspecified, with other nicotine-induced disorders

== ENCOUNTER → 2022-02-25 | Outpatient (CLI) | payer OTHER ==
[~2022-02-25] MED LIST changes: +METHACHOLINE KIT (J7674) INH ONE
== END ==
LOC: M CARPUL 07:41
PROVIDERS: ATTEND Nurse Practitioner Adult Health
DX: R06.02 Shortness of breath (principal)
CPT/HCPCS: 94070; 95070; J7674

== ENCOUNTER 2023-02-15 13:42 | Emergency (ER) | payer OTHER ==
[~2023-02-15] VITALS: Ht 162.6 cm; Wt 66.0 kg
[~2023-02-15 13:42] MED LIST changes: +CIPR0.3S37 AD; -CIPR0.3S6 AD; -METHACHOLINE KIT (J7674) INH ONE; +[UNRECOGNIZED DRUG - CODE] AD; -[UNRECOGNIZED DRUG - CODE] AD
[2023-02-15 13:44] VITALS: TEMP 97.9; O2SAT 98
[2023-02-15 15:27] LABS: BASO # 0.1 10^3/uL (0.0-0.2); BASO % 0.8 % (0.0-1.0); EOS # 0.1 10^3/uL (0.0-0.5); EOS % 2.2 % (0.0-3.0); HEMATOCRIT 35.5 % (36.0-47.0); HEMOGLOBIN 12.3 g/dl (12.0-15.5); LYMPH # 2.5 10^3/uL (1.5-5.0); MEAN CORPUSCULAR HEMOGLOBIN 31.5 pg (27.0-33.0); MEAN CORPUSCULAR HGB CONC 34.6 g/dl (32.0-36.5); MEAN CORPUSCULAR VOLUME 90.8 fl (80.0-96.0); MONO # 0.4 10^3/uL (0.0-0.8); MONO % 6.6 % (2.0-8.0); NEUTROPHILS # 3.3 10^3/uL (1.5-8.5); NEUTROPHILS % 51.1 % (36.0-66.0); PLATELET COUNT, AUTOMATED 259 10^3/uL (150-450); RED BLOOD COUNT 3.91 10^6/uL (4.00-5.40); WHITE BLOOD COUNT 6.4 10^3/uL (4.0-10.0)
[2023-02-15 15:48] LABS: ALBUMIN 3.8 G/DL (3.2-5.2); ALKALINE PHOSPHATASE 40 U/L (46-116); ALT/SGPT 19 U/L (7.0-40); AST/SGOT 15 U/L (<34); BILIRUBIN,TOTAL 0.7 MG/DL (0.3-1.2); BLOOD UREA NITROGEN 9 MG/DL (9-23); CALCIUM LEVEL 9.2 MG/DL (8.5-10.1); CARBON DIOXIDE LEVEL 27 MMOL/L (20-31); CHLORIDE LEVEL 106 MMOL/L (98-107); CREATININE FOR GFR 0.66 MG/DL (0.55-1.30); GLOMERULAR FILTRATION RATE > 60.0 (>60); GLUCOSE, FASTING 89 MG/DL (60-100); HCG, SERUM QUANTITATIVE < 2.6 MIU/ML (<4.2); POTASSIUM SERUM 4.2 MMOL/L (3.5-5.1); SODIUM LEVEL 141 MMOL/L (136-145); TOTAL PROTEIN 6.4 G/DL (5.7-8.2)
[2023-02-15 16:37] VITALS: BP 126/63
[2023-02-15 16:48] LABS: IRON (FE) 81 UG/DL (50-170); PERCENT SATURATION 25.1 % (13.2-45.0); TOTAL IRON BINDING CAPACITY 323 UG/DL (250-425)
[2023-02-15 16:50] LABS: FREE T4 0.98 NG/DL (0.89-1.76); THYROID STIMULATING HORMONE 0.576 uIU/ML (0.55-4.78)
[2023-02-15 16:51] LABS: VITAMIN B12 LEVEL 287 PG/ML (211-911)
== END 2023-02-15 17:41 | disposition home or self-care (01) ==
LOC: M ED 13:42
DX: R42 Dizziness and giddiness (principal); R00.1 Bradycardia, unspecified; J45.909 Unspecified asthma, uncomplicated; F12.10 Cannabis abuse, uncomplicated; Z87.42 Personal history of other diseases of the female genital tract; Z87.891 Personal history of nicotine dependence; Z79.2 Long term (current) use of antibiotics; Z79.82 Long term (current) use of aspirin; Z79.899 Other long term (current) drug therapy

== ENCOUNTER 2024-07-06 23:06 | Emergency (ER) | payer OTHER ==
[~2024-07-06] VITALS: Ht 165.1 cm; Wt 75.2 kg
[2024-07-07 01:28] VITALS: BP 110/69; TEMP 96.6; O2SAT 96
== END 2024-07-07 01:28 | disposition home or self-care (01) ==
LOC: M ED 23:06
DX: S70.12XA Contusion of left thigh, initial encounter (principal); S80.10XA Contusion of unspecified lower leg, initial encounter; V49.40XA Driver injured in collision with unspecified motor vehicles in traffic accident, initial encounter; Y92.9 Unspecified place or not applicable; Y93.9 Activity, unspecified; Y99.9 Unspecified external cause status

== ENCOUNTER 2024-08-12 22:22 | Emergency (ER) | payer OTHER, SELFPAY ==
[~2024-08-12] VITALS: Ht 165.1 cm; Wt 78.8 kg
[2024-08-12 22:24] VITALS: BP 104/51; TEMP 98.5; O2SAT 97
== END 2024-08-13 06:53 | disposition left against medical advice (07) ==
LOC: M ED 22:22
DX: Z53.21 Procedure and treatment not carried out due to patient leaving prior to being seen by health care provider (principal)

== ENCOUNTER → 2024-11-18 | Outpatient (REF) | payer OTHER ==
[2024-11-18 12:30] LABS: PLATELET COUNT, AUTOMATED 299 10^3/uL (150-450)
[2024-11-18 12:36] LABS: ALT/SGPT 20 U/L (7.0-40); AST/SGOT 23 U/L (<34); CALCIUM LEVEL 9.1 MG/DL (8.5-10.1); CARBON DIOXIDE LEVEL 28 MMOL/L (20-31); CHLORIDE LEVEL 107 MMOL/L (98-107); CREATININE FOR GFR 0.81 MG/DL (0.55-1.30); GLOMERULAR FILTRATION RATE > 90.0 (>60); POTASSIUM SERUM 4.2 MMOL/L (3.5-5.1); SODIUM LEVEL 144 MMOL/L (136-145)
== END ==
LOC: M LABWUC 12:10
PROVIDERS: ATTEND Physician Assistant
DX: L73.2 Hidradenitis suppurativa (principal); R74.01 Elevation of levels of liver transaminase levels; R53.83 Other fatigue